=== PATIENT | female | born 1955 ===

== ENCOUNTER 2024-09-03 11:20 | Emergency (ER) | payer OTHER, SELFPAY ==
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
[2024-09-03 11:40] VITALS: BP 138/72; BP 145/82; PULSE 85; PULSE 90; RESP 20; TEMP 36.6; O2SAT 99; BMI 22.7
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
[2024-09-03] MEDS: Acetaminophen 1,000 MG/100 ML PIGGYBACK 400 MG IV (14:07)
[2024-09-03 14:09] LABS: MANUAL DIFF FLAG NO
[2024-09-03 14:14] LABS: Basophils Percent Auto 0.4 % (0-2); Eosinophils Percent Auto 0.9 % (0-4); Hematocrit 38.8 % (37.0-47.0); Imm Gran Abs Auto 0.01 X10*3/uL (0.00-0.03); Imm Gran Pct Auto 0.2 % (0.0-0.4); Lymphocytes Absolute Auto 1.3 X10*3/uL (1.2-4.9); Lymphocytes Percent Auto 27.6 % (20-40); Mean Corpuscular HGB Conc 33.5 g/dl (31.0-35.0); Mean Corpuscular Hemoglobin 30.1 pg (27.0-33.0); Mean Corpuscular Volume 89.8 fL (80.0-98.0); Mean Platelet Volume 11.1 fL (9.4-12.3); Monocytes Absolute Auto 0.4 X10*3/uL (0.1-1.2); Monocytes Percent Auto 7.5 % (2-11); Neutrophils Percent Auto 63.4 % (45-73); Platelet Count 204 X10*3/uL (160-400); Red Blood Count 4.32 X10*6/uL (4.20-5.50); Red Cell Distribution Width 13.7 % (11.0-16.0); White Blood Count 4.7 X10*3/uL (4.8-10.8)
[2024-09-03 14:28] LABS: Alanine Aminotransferase 75 U/L (0-31); Albumin Level 4.1 g/dL (3.5-5.0); Alkaline Phosphatase 130 U/L (39-117); Anion Gap 12 (12-20); Aspartate Amino Transferase 78 U/L (5-31); Bilirubin Direct 0.4 mg/dL (0.0-0.5); Bilirubin Total 1.1 mg/dL (0.0-1.0); Blood Urea Nitrogen 13 mg/dL (9-16); Calcium 9.4 mg/dL (8.4-10.2); Carbon Dioxide 29 mmol/L (22-29); Chloride 106 mmol/L (96-108); Creatinine Clr Calc Pharmacy 68.4; Estimated Glomerular Filt Rate > 60; Glucose Random 93 mg/dL (60-115); Potassium 4.2 mmol/L (3.3-5.1); Sodium 143 mmol/L (135-145); Total Protein 7.4 g/dL (6.5-8.0)
--- OUTSIDE RECORDS SUMMARY | 2024-09-03 14:28 | XMS_ITS | Encounter Summary ---
Author Organization [facility] Address [address] [place] [address] Care Team Providers Care System Trainer Name Role Phone Nate Maravilla MD Primary Care Provider Cipriano Kendrick MD Unavailable [phone] Jennifer Marcelino MD Primary Care Provider [phone] Yumiko Hemphill MD Unavailable [phone] Ami Fields MD Unavailable [phone] Chantell Greenwood TIMBER FRAMER HELPER Unavailable [phone] Jennifer Marcelino MD Unavailable [phone] Thomas Crews PA-C Unavailable [phone] Jennifer Marcelino MD Unavailable [phone] Encounter Details Date Type Department Care Team (Late st Contact Info) Description 05/28/2022 Lab Requisition [place] COVID-19 Testing Trailer [address] [place] [address] Severiano Hernadez MD [address] [place] [address] Encounter for laboratory testing for COVID-19 virus Social History Tobacco Use Types Packs/Day Years Used Date Smoking Tobacco: Never Smokeless Tobacco: Never Alcohol Use Standard Drinks/Week Comments No 0 (1 standard drink = 0.6 oz pur e alcohol) Comments Unknown Sex and Gender Information Value Date Recorded Sex Assigned at Female 03/15/2023 8:06 AM EST Legal Sex Female 11:37 AM EDT Gender Identity Female 03/15/2023 8:06 AM EST Sexual Orientation Choose not to disclose 2023 11:54 PM EDT COVID-19 Exposure Response Date Recorded In the last 10 days, have yo u been in contact with someone who was confirmed or suspected to have Coronavirus/COVID-19? Unable to assess 05/19/2022 9:44 AM EST documented as of this encounter Plan of Treatment Upcoming Encounters Date Type Department Care Team (Late st Contact Info) Description 10/04/2024 11:15 AM EDT Office Visit [facility] Department of Cardiology [address] [place] [phone] Ami Fields MD [address] [place] [address] 10/15/2024 9:45 AM EDT Office Visit [facility] [address] [phone] Jennifer Marcelino MD [address] [place] [address] 10/29/2024 3:00 PM EDT Office Visit [facility] [address] [place] [phone] Cipriano Kendrick MD [address] [place] [address] 12/26/2024 10:30 AM EDT Consult [facility] [place] [address] [place] [phone] Jennifer Marcelino MD [address] [place] [address], [place] [id number] Aida Casey MD [address] [place] [address] 04/08/2025 9:30 AM EST Office Visit [address] [place] [phone] Jennifer Marcelino MD [address] [place] [address], [place] [id number] documented as of this encounter Procedures Procedure Name Priority Date/Time Associated Diagnosis Comments ANTHONY COVID-19 (SARS-COV-2), JOYCELYN (IN-HOUSE) KIANNAAKER Routine 05/28/2022 8:58 AM EST Encounter for laboratory testing for COVID-19 virus [ICD-10-CM] documented in this encounter Results * Kiannaaker COVID-19 (SARS-CoV-2), JOYCELYN (In-House) (05/28/2022 8:58 AM EST) SARS CoV 2 Not Detected Not Detected 05/28/2022 10:14 AM EST [facility] Comment: Negative results do not preclude SARS-CoV-2 (COVID-19)infection and should not be used as the sole basis for treatment or other patient management decisions. The SARS-CoV-2 (Covid-19) Nucleic Acid Amplification Assay is limited to laboratories certified under the Clinical Laboratory Improvement Amendments of 1988 (CLIA), 42 U.S.C. 263a, to perform high complexity tests. Nucleic acid amplification tests include RT-PCR and TMA. This assay has not been FDA cleared or approved, however, this assay has been authorized by the Food and Drug Administration (FDA) under an Emergency Use Authorization (EUA). ??Validation was completed and performance characteristics established by [facility] as per the FDA and CLIA requirement for this EUA. The Aptima SARS-CoV-2 assay Letter of Authorization, along with the authorized Fact Sheet for Healthcare Providers, the authorized Fact Sheet for Patients, and authorized labeling are available on the FDA website: https://www.fda.gov/medical-devices/kmhjcxwpv-xmzxkqqzex-akoqlfm-devices/emergen -us q-ydebhttgqtutfm-imrxyal-devices. Performed at [facility], [place], [place] ??CT License [id number] ??CLIA [id number] Source Nasopharyngeal 05/28/2022 10:14 AM EST [facility] Microbiology Nasopharyngeal swab / Unknown 05/28/2022 8:58 AM EST 05/28/2022 8:58 AM EST us Severiano Hernadez MD MICROBIOLOGY - GENERAL ORDER YOKASTA Final Result Performing Organization Address City/State/[facility] Co de Phone Number [facility] [address] [place] [address] documented in this encounter Visit Diagnoses Diagnosis Encounter for laboratory testing for COVID-19 virus documented in this encounter Care Teams System Trainer Relationship Specialty Start Date End Date Nate Maravilla MD PCP - General Endocrinology 12/15/15 10/18/22 Jennifer Marcelino MD [address] [place] [address] PCP - General Internal Medicine 10/19/22 Jennifer Marcelino MD [address] [place] [address] PCP - MSSP Attributed 08/07/22 05/08/23 Thomas Crews PA-C [address] [place] [address] PCP - MSSP Attributed 05/09/23 02/06/24 Jennifer Marcelino MD [address] [place] [address] PCP - MSSP Attributed 02/07/24 Cipriano Kendrick MD [address] [facility] [address] [place] [address] Email Engineer Gastroenterology 03/18/21 Yumiko Hemphill MD [address] [place] [address] Obstetrics and Gynecology 10/19/22 Ami Fields MD [address] [facility] [address] [place] [address] Cardiovascular Disease 10/19/22 Chantell Greenwood, TIMBER FRAMER HELPER [address] [facility] [address] [place] [address] [employer] Controls Mechanic 11/17/22 documented as of this encounter
--- OUTSIDE RECORDS SUMMARY | 2024-09-03 14:28 | XMS_ITS | Clinical Summary ---
Author Organization [facility] Address [address] [place] [id number] Care Team Providers Care Core Filer Name Role Phone Cipriano Kendrick MD Unavailable [phone] Jennifer Marcelino MD Primary Care Provider Yumiko Hemphill MD Unavailable [phone] Ami Fields MD Unavailable [phone] Chantell Greenwood INSURANCE CLAIMS SUPERVISOR Unavailable [phone] Jennifer Marcelino MD Unavailable Allergies Active Allergy Reactions Criticality Noted Date Comments Chlorhexidine Swelling Medium 01/29/2021 Medications Coenzyme Q10 (CoQ-10) 100 MG Cap CoQ-10 Active cholecalciferol (CHOLECALCIFEROL) 1.25 MG (51346 UT) capsule Vitamin D3 Active Glucosamine-Chondro it-Vit C-Mn (GLUCOSAMINE 1500 COMPLEX PO) Take by mouth. Active multivitamin Tab tablet Take 1 tablet by mouth daily. Active atorvastatin (LIPITOR) 20 MG tabletIndications:C oronary arteriosclerosis TAKE 1 TABLET(20 MG) BY MOUTH 3 TIMES A WEEK 90 tablet 3 12/12/19 24 Active Synthroid 75 MCG tabletIndications:H ypothyroidism, unspecified type TAKE 1 TABLET(75 MCG) BY MOUTH DAILY ON AN EMPTY STOMACH 90 tablet 3 02/09/20 24 Active valACYclovir (VALTREX) 500 MG tablet Take 1 tablet (500 mg total) by mouth daily. Active ursodiol (ACTIGALL) 300 MG capsuleIndications: Primary biliary cholangitis (HCC) TAKE 2 CAPSULES BY MOUTH EVERY MORNING AND 1 CAPSULE EVERY EVENING 270 capsule 2 05/04/20 24 Active tiZANidine (ZANAFLEX) 2 MG tabletIndications:R otator cuff dysfunction, right Take 1 tablet (2 mg total) by mouth 3 (three) times a day as needed for muscle spasms. 30 tablet 1 06/07/19 25 2024 Discontinued meloxicam (MOBIC) 15 MG tabletIndications:R otator cuff dysfunction, right Take 1 tablet (15 mg total) by mouth daily as needed for moderate pain. 30 tablet 1 06/07/19 25 2024 Discontinued dexAMETHasone (DECADRON) 2 MG tabletIndications:R adiculopathy, cervical region TAKE 1 TAB TWICE DAILY FOR 5 DAYS THEN 1 TAB DAILY FOR 5 DAYS 15 tablet 07/18/19 25 2024 Discontinued azithromycin (ZITHROMAX) 250 MG tabletIndications:P ertussis exposure,Upper respiratory tract infection, unspecified type Take 2 tabs PO on day one and one tabs on days 2-5 #6 6 tablet 08/13/19 25 2024 Active Problems Problem Noted Date Diagnosed Date Coronary arteriosclerosis 11/04/2022 Chest pain 10/19/2022 10/19/2022 Dyspnea and respiratory abnormalities 10/19/2022 10/19/2022 Edema 10/19/2022 10/19/2022 Pure hypercholesterolemia 10/19/20222022 Left carotid bruit 10/19/2022 10/19/2022 Palpitations 10/19/2022 10/19/2022 GERD (gastroesophageal reflux disease) 0 Plantar wart 05/28/2016 Right foot pain 05/28/2016 Primary biliary cholangitis, stage 0 2016 biopsy 03/29/2016 Family history of breast cancer 03/18/2016 10/19/2022 Genital herpes simplex 03/18/2016 3 History of cervical dysplasia 03/18/2016 Age-related osteoporosis wit hout current pathological fracture 03/18/2016 10/19/2022 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 12/15/2015 Resolved Problems Problem Noted Date Diagnosed Date Resolved Date Purpura 10/27/2022 06/16/2023 Multinodular goiter 02/11/2021 10/20/19 23 Screening for colon cancer 09/27/2019 0 10/19/2022 Encounters Date Type Department Care Team Description 08/20/2024 8:00 AM EDT Treatment [facility] [address] [facility] [[email or web address] [address] [place] [address] Jhon Grace MD [place], [place], PT Radiculopathy, cervical region (Primary Dx); Cervicalgia; DDD (degenerative disc disease), cervical; Cervical radiculopathy 08/20/2024 Travel 08/17/2024 8:00 AM EDT Treatment [facility] [address] [facility] [[email or web address] [address] [place] [address] Jhon Grace MD [place], Kristin L, PT Radiculopathy, cervical region (Primary Dx); Cervicalgia 08/15/2024 8:00 AM EDT Treatment [facility] [address] [facility] [[email or web address] [address] [place] [address] Jhon Grace MD [place], [place], PT Radiculopathy, cervical region (Primary Dx); Cervicalgia 08/15/2024 Travel 08/12/2024 8:45 AM EDT Office Visit [facility] [address] [place] [address] Raz Rondon MD Nguyen, Nam V, PA Pertussis exposure (Primary Dx); Upper respiratory tract infection, unspecified type 08/12/2024 Travel 08/09/2024 8:30 AM EDT Treatment [facility] [address] [facility] [address] [place] [phone] Jhon Grace MD [place], Kristin L, PT Radiculopathy, cervical region (Primary Dx); Cervicalgia 08/09/2024 Travel 08/06/2024 9:30 AM EDT Treatment [facility] [address] [facility] [address] [place] [phone] Jhon Grace MD [place], [place], PT Radiculopathy, cervical region (Primary Dx); Cervicalgia; DDD (degenerative disc disease), cervical; Cervical radiculopathy 08/06/2024 Travel 07/31/2024 1:00 PM EDT Evaluation [facility] [address] [facility] [address] [place] [phone] Jhon Grace MD [place], [place], PT Radiculopathy, cervical region (Primary Dx); Cervicalgia 07/31/2024 Plan of Care Documentation [facility] [address] [facility] [address] [place] [phone] 07/31/2024 Travel 07/17/2024 9:30 AM EDT Consult [facility] [address] [phone] Rip Barrientos, [place] Radiculopathy, cervical region (Primary Dx) 07/02/2024 Orders Only [address] [place] [address] Jennifer Marcelino MD Rotator cuff dysfunction, right (Primary Dx) 07/02/[address] [place] [address] Jennifer Marcelino MD Results Request 06/27/2024 Orders Only [facility] [address] [place] [address] Jennifer Marcelino MD 06/08/2024 10:30 AM EST - 06/08/2024 11:00 AM EST Surgery [facility] [address] [place] [phone] Sadi Ly MD COLONOSCOPY 06/08/2024 10:30 AM EST Anesthesia Event [facility] [address] [place] [phone] Yara Morel MD 06/08/2024 9:26 AM EST - 06/08/2024 11:59 PM EST Hospital Encounter [facility] [address] [place] [phone] Sadi Ly MD Discharge Disposition: Home or Self Care 06/08/2024 Scanned Document [facility] [address] [place] [address] Sadi Ly MD 06/08/2024 Travel 06/07/2024 9:45 AM EST Office Visit [address] [phone] Jennifer Marcelino MD Pain of right hand (Primary Dx); Rotator cuff dysfunction, right 06/07/2024 Orders Only [facility] [address] [place] [address] Jennifer Marcelino MD 06/07/2024 Travel from Last 3 Months Immunizations Immunization Administration Dates Next Due Covid-19 MRNA Vaccine - Pfiz er 12+ (Purple Cap) 03/25/2021,07/27/2020,07/06/2020 Influenza High-Dose Quadriva lent,(FLUZONE HIGH-DOSE), Perservative Free IM 0.7 mL 65 years and older 02/08/2022 Influenza Inactivated/Split Preservative Free IM 02/12/2020 Influenza, Quadrivalent (FLU AD) Adjuvanted Preservative Free IM 65 years and older 01/25/2023 Influenza, Quadrivalent (FLU ARIX, AFLURIA, FLULAVAL, FLUZONE) Preservative Free IM 01/28/2021,02/12/2020 Influenza, Trivalent (FLUAD) Adjuvanted Preservative Free IM 65 years and older 03/14/2024 Influenza, Unspecified 02/08/2022,01/28/2021,10/2019 Pneumococcal Conjugate 13-Valent 01/28/2021 Pneumococcal Conjugate 20-Valent 06/30/2022 Family History Medical History Relation Name Comments Diabetes Brother d Thyroid cancer Mother Breast cancer Sister p Relation Name Status Comments Brother d Father Mother Alive Sister p Social History Tobacco Use Types Packs/Day Years Used Date Smoking Tobacco: Never Passive Smoke Exposure: Never Smokeless Tobacco: Never Tobacco Cessation:Counseling Given: Not Answered Alcohol Use Standard Drinks/Week Comments No 0 (1 standard drink = 0.6 oz pur e alcohol) [facility] Utilities Answer Date Recorded In the past 12 months has th e electric, gas, oil, or water company threatened to shut off services in your home? No 06/05/2024 Social Connection and Isolat ion Panel [NHANES] Answer Date Recorded In a typical week, how many times do you talk on the phone with family, friends, or neighbors? More than three times a week 06/05/2024 Frequency of Social Gatherin gs with Friends and Family Not on file 06/05/2024 Attends [employer] Services Not on file 06/05 Active Member of Clubs or Organizations Not on f ile 06/05/2024 Attends Club or Organization Meetings Not on kathie e 06/05/2024 Marital Status Not on file 06/05/2024 AUDIT-C Answer Date Recorded Q1: How often do you have a drink containing alcohol? Never 06/05/2024 Q2: How many drinks containi ng alcohol do you have on a typical day when you are drinking? Patient does not drink Q3: How often do you have si x or more drinks on one occasion? Never 06/05/2024 PHQ-2 Answer Date Recorded PHQ-2 Total Score 0 04/10/2024 Hunger Vital Sign Answer Date Recorded Within the past 12 months, y ou worried that your food would run out before you got the money to buy more. Never true 06/05/19 25 Within the past 12 months, t he food you bought just didn't last and you didn't have money to get more. Never true 06/05/2024 PRAPARE - Transportation Answer Date Re corded In the past 12 months, has l ack of transportation kept you from medical appointments or from getting medications? No 05/10 In the past 12 months, has l ack of transportation kept you from meetings, work, or from getting things needed for daily living? No 06/05/2024 Housing Stability Vital Sign Answer Dominic e Recorded In the last 12 months, was t here a time when you were not able to pay the mortgage or rent on time? No 06/05/2024 In the past 12 months, how m any times have you moved where you were living? 0 06/05/2024 At any time in the past 12 m [facility], were you homeless or living in a chcf (including now)? No 06/05/2024 Education Answer Date Recorded What is the highest level of school you have completed or the highest degree you have received? Bachelor's degree (e.g., BA, AB, BS) 06/05/2024 Comments No Sex and Gender Information Value Date Recorded Sex Assigned at Female 03/15/2023 8:06 AM EST Legal Sex Female 11:37 AM EDT Gender Identity Female 03/15/2023 8:06 AM EST Sexual Orientation Choose not to disclose 2023 11:54 PM EDT Last Filed Vital Signs Vital Sign Reading Time Taken Comments Blood Pressure 137/77 08/12/2024 8:11 AM EDT Pulse 100 08/12/2024 8:11 AM EDT Temperature 36.8 ??C (98.2 ??F) 08/12/2024 8:11 AM ED T Respiratory Rate 15 08/12/2024 8:11 AM EDT Oxygen Saturation 99% 08/12/2024 8:11 AM EDT Inhaled Oxygen Concentration - - Weight 58.5 kg (129 lb) 06/07/2024 9:42 AM EST Height 162.6 cm (5' 4 ) 04/11/2024 9:22 AM EST Body Mass Index 22.14 04/11/2024 9:22 AM EST Plan of Treatment Upcoming Encounters Date Type Department Care Team (Late st Contact Info) Description 10/04/2024 11:15 AM EDT Office Visit [facility] of [facility]iology [place] [id number] [place] [address] [address] [place] [phone] Ami Fields MD [address] [place] [address] 10/15/2024 9:45 AM EDT Office Visit [address] [phone] Jennifer Marcelino MD [address] [place] [address] 10/29/2024 3:00 PM EDT Office Visit [address] [phone] Cipriano Kendrick MD [address] [place] [address] 12/26/2024 10:30 AM EDT Consult [facility] [place] [address] [facility] [address] [place] [phone] Jennifer Marcelino MD [address] [place] [address] Aida Casey MD 100 [facility] [address] [place] [address] 04/08/2025 9:30 AM EST Office Visit [address] [phone] Jennifer Marcelino MD [address] [place] [address] Health Maintenance Due Date Last Done Comments DTaP/Tdap/Td Vaccines (1 - Tdap) 1973 Zoster (Shingles) Vaccine (1 of 2) 2004 COVID-19 Vaccine ( season) 2024 02/10/2024, 02/13/2023, 02/23/2022, Additional history exists DXA Bone Density (Females,Ages 65 and older) 11/03/2024 11/03/2022 Annual Wellness Visit 04/12/2025 04/11/2024, 024 Mammogram 02/20/2026 02/21/2024, 10/08, 10/15/2021, Additional history exists Colonoscopy 06/08/2029 06/08/2024 RSV Vaccine 60 years and older and Patients (1 - Risk 60-74 years 1-dose series) 04/06/2030 Postponed from 2014 (Not Indicated) Pneumococcal Vaccines 50+ Completed 06/30/2022, Influenza Vaccine Completed 03/14/2024, , 02/08/2022, Additional history exists Hepatitis C Virus Screening Completed 04/06/2024 Hepatitis B Vaccines Aged Out No long er eligible based on patient's age to complete this topic Physical Discontinued Procedures Procedure Name Priority Date/Time Associated Diagnosis Comments MR RT SHOULDER WITHOUT CONTRAST Routine 06/27/2024 7:41 AM EST COLONOSCOPY 06/08/2024 10:30 AM EST Screening for colon cancer Special Needs Jennifer Peck MD [facility] Shannan main, marin. PATHOLOGY REPORT 06/08/2024 12:0 0 AM EST XR RT HAND MIN 3 VIEWS Routine 06/07/2024 1:59 PM EST HEPATITIS C VIRUS (HCV) ANTIBODY Routine 04/06/2024 12:00 AM EST Need for hepatitis C screening test MM MAMMOGRAM DIAGNOSTIC-BILATER AL Routine 02/21/2024 Left-sided chest wall pain Breast cancer screening by mammogram Dense breast DEXA BONE DENSITY AXIAL SKELETON, 1 OR MORE SITES Routine 11/03/2022 3:03 PM EDT Osteopenia, unspecified location Postmenopausal from Last 3 Months or Most Recently Relevant to Health Maintenance Results * MR RT SHOULDER WITHOUT CONTRAST (06/27/2024 7:41 AM EST) Anatomical Region Laterality Modality Other 06/27/2024 7:00 AM EST 06/27/2024 7:00 AM EST Impressions 06/29/2024 10:15 AM EST Supraspinatus and infraspinatus tendinosis, without evidence of tear. Moderate AC joint osteoarthrosis. There is mild lateral downsloping of the acromion narrowing of the acromiohumeral distance possibly relating to symptoms of impingement. Recommend correlation with clinical exam. Electronically signed by: ??Alvino Carr MD ??06/29/2024 10:15 AM EST Thank you for referring your patient to us, Alvino Carr MD [phone] (Electronically Signed - 06/29/2024 10:15) Copy: PATIENT , ?? Narrative 06/29/2024 10:15 AM EST EXAMINATION: MR SHOULDER WITHOUT CONTRAST RIGHT CLINICAL INFORMATION: Right shoulder pain and numbness. History of fall 201128/05/2023 COMPARISON: None available TECHNIQUE: Multiplanar MR images of the right shoulder were obtained on a high-field scanner without intravenous contrast. FINDINGS: ROTATOR CUFF: Mild supraspinatus and infraspinatus tendinosis. Subscapularis and teres minor tendons are intact. No muscle atrophy or fatty infiltration. BICEPS: Normal CORACOACROMIAL ARCH: Mild lateral downsloping of the acromion. Acromiohumeral distance is narrowed measuring 4 mm. Moderate AC joint osteoarthrosis. Coracoclavicular ligamentous complex is intact. . LABRUM/CAPSULE: Intact GLENOHUMERAL JOINT/MARROW: Glenohumeral joint is congruent. No high-grade cartilage loss of the glenohumeral joint. No joint effusion. Procedure Note Alvino Carr MD - 06/29/2024 EXAMINATION: MR SHOULDER WITHOUT CONTRAST RIGHT CLINICAL INFORMATION: Right shoulder pain and numbness. History of fall 201128/05/2023 COMPARISON: None available TECHNIQUE: Multiplanar MR images of the right shoulder were obtained on a high-fieldscanner without intravenous contrast. FINDINGS: ROTATOR CUFF: Mild supraspinatus and infraspinatus tendinosis.Subscapularis and teres minor tendons are intact. No muscle atrophy orfatty infiltration. BICEPS: Normal CORACOACROMIAL ARCH: Mild lateral downsloping of the acromion.Acromiohumeral distance is narrowed measuring 4 mm. Moderate AC jointosteoarthrosis. Coracoclavicular ligamentous complex is intact. . LABRUM/CAPSULE: Intact GLENOHUMERAL JOINT/MARROW: Glenohumeral joint is congruent. No high- gradecartilage loss of the glenohumeral joint. No joint effusion. IMPRESSION: Supraspinatus and infraspinatus tendinosis, without evidence of tear. Moderate AC joint osteoarthrosis. There is mild lateral downsloping of theacromion narrowing of the acromiohumeral distance possibly relating tosymptoms of impingement. Recommend correlation with clinical exam. Electronically signed by: Alvino Carr MD 06/29/2024 10:15 AM EST RPWorkstation: [id number] Thank you for referring your patient to us, Alvino Carr MD [phone] (Electronically Signed - 06/29/2024 10:15) Copy: PATIENT , us Jennifer Marcelino MD IMG LEGACY PROCEDURES Final Result * Pathology (06/08/2024 12:00 AM EST) us Sadi Ly MD PATHOLOGY/CYTOLOGY ORDERABLES Final Result * XR RT HAND MIN 3 VIEWS (06/07/2024 1:59 PM EST) Anatomical Region Laterality Modality Other 06/07/2024 12:1 5 PM EST 06/07/2024 12:15 PM EST Impressions 06/09/2024 12:40 PM EST Normal right hand. Electronically signed by: ??Kimo Salinas MD ??06/09/2024 12:40 PM EST RP Thank you for referring your patient to us, Kimo Salinas MD [phone] (Electronically Signed - 06/09/2024 12:40) Narrative 06/09/2024 12:40 PM EST EXAMINATION: XR HAND RIGHT CLINICAL INFORMATION: Injury to right hand. Pain in right hand M79.641. COMPARISON: None ?? TECHNIQUE: AP, lateral, and oblique views of the right hand. FINDINGS: The bones and soft tissues are normal. No fracture. Alignment is anatomic. Joint spaces are maintained. No erosions or soft tissue calcifications. ?? Procedure Note Kimo Salinas MD - 06/09/2024 EXAMINATION: XR HAND RIGHT CLINICAL INFORMATION: Injury to right hand. Pain in right hand M79.641. COMPARISON: None TECHNIQUE: AP, lateral, and oblique views of the right hand. FINDINGS: The bones and soft tissues are normal. No fracture. Alignment is anatomic.Joint spaces are maintained. No erosions or soft tissue calcifications. IMPRESSION: Normal right hand. Electronically signed by: Kimo Salinas MD 06/09/2024 12:40 PM EST RPWorkstation: [id number] Thank you for referring your patient to us, Kimo Salinas MD [phone] (Electronically Signed - 06/09/2024 12:40) Jennifer Marcelino MD IMG LEGACY PROCEDURES Final Result * Hepatitis C Antibody (04/06/2024 12:00 AM EST) Hepatitis C Antibody NON-REACT KULDEEP NON-REACT KULDEEP [facility] Comment: HCV antibody was non-reactive. There is no laboratory evidence of HCV infection. In most cases, no further action is required. However, if recent HCV exposure is suspected, a test for HCV RNA (test code 66124) is suggested. For additional information please refer to http://education.[employer]/faq/YJJ58i8 (This link is being provided for informational/ educational purposes only.) Blood Blood specimen / Unknown 04/06/2024 04/06/2024 11:28 AM EST Narrative [facility] - 04/06/2024 9:58 PM EST FASTING:NO FASTING: NO Jennifer Marcelino MD LAB BLOOD ORDERABLES Final Result [facility] [address] [place] [phone] * MM Mammogram diagnostic-Bilateral (02/21/2024) Anatomical Region Laterality Modality Breast Bilateral Mammography Jennifer Marcelino MD IM MAMMOGRAPHY ORDERABLES Final Result * DEXA Bone Density axial skeleton, 1 or more sites (11/03/2022 3:03 PM EDT) Anatomical Region Laterality Modality Digital Radiogra phy 11/03/2022 10:0 0 AM EDT 11/03/2022 10:00 AM EDT Impressions 11/04/2022 9:09 AM EDT 1. DIAGNOSIS: Osteoporosis based on the lowest T-score value of -2.8 in the lumbar spine applying World Health Organization criteria. ?? 2. 10-YEAR FRACTURE RISK PREDICTION, FRAX: According to the guidelines, FRAX calculation should only be performed on patients in the osteopenia bone density category. Therefore, FRAX was not performed on this patient. 3. Treatment Recommendations: NOF guidelines recommend consideration for treatment in postmenopausal women and men age 50 and older presenting with the following: -A hip or vertebral (clinical or morphometric) fracture. -T-score less than or equal to -2.5 at the femoral neck or spine after appropriate evaluation to exclude secondary causes. -Low bone mass at the hip or spine and a 10-year fracture probability by FRAX of greater than or equal to 3% for hip fracture or greater than or equal to 20% for major osteoporotic fracture based on the [place] adapted WHO algorithm. 4. Other Recommendations: All treatment decisions require clinical judgment and consideration of individual patient factors, including patient preferences, comorbidities, previous drug use, risk factors not captured in the FRAX model (e.g. frailty, falls, vitamin D deficiency, increased bone turnover, interval significant decline in bone density) and possible under or overestimation of fracture risk by FRAX. Additional medical evaluation for secondary cause of low bone mineral density may be appropriate. FUTURE SCAN RECOMMENDATION: People with diagnosed cases of osteoporosis or at high risk for fracture should have regular bone mineral density tests. For patients eligible for Medicare, routine testing is allowed once every 2 years. The testing frequency can be increased to one year for patients who have rapidly progressing disease, those who are receiving or discontinuing medical therapy to restore bone mass, or have additional risk factors. Thank you for referring your patient to us, Akil Hui MD [phone] (Electronically Signed - 11/04/2022 09:09) Copy: PATIENT , ?? JENNIFER Mcarthur PEPE BISHOP ON LICENSE OF [facility]- [address] [address] Narrative 11/04/2022 9:09 AM EDT EXAMINATION: BONE DENSITOMETRY CLINICAL INDICATION: Other disorder of bone density and structure, unspecified site. COMPARISON: Previous BD dated 04/25/2014 and baseline BD dated 01/30/2007. TECHNIQUE: Using a WUT DXA system (software version: 14.10) manufactured by [employer], dual-energy x-ray absorptiometry was performed of the lumbar spine and left hip. The images are of good technical quality. Summary results are attached. FINDINGS: AP SPINE L1-L4: Current: BMD 0.849 g/cm2, Z-score -1.2, T-score -2.8, osteoporosis, 5.4% decrease from previous, 13.1% decrease from baseline (<5% change is not significant). Prior: BMD 0.897 g/cm2. Baseline: BMD 0.977 g/cm2. LEFT FEMUR, NECK: Current: BMD 0.843 g/cm2, Z-score 0.2, T-score -1.4, osteopenia. Prior: BMD 0.896 g/cm2. Baseline: BMD 0.910 g/cm2. LEFT FEMUR, TOTAL: Current: BMD 0.913 g/cm2, Z-score 0.6, T-score -0.8, normal, 3.9% decrease from previous, 6.0% decrease from baseline (<5% change is not significant). Prior: BMD 0.950 g/cm2. Baseline: BMD 0.971 g/cm2. IDENTIFIED RISK FACTORS: Menopause, secondary osteoporosis. HISTORY OF FRACTURE: None listed. MEDICATIONS: None listed. Procedure Note Akil Hui MD - 11/04/2022 EXAMINATION: BONE DENSITOMETRY CLINICAL INDICATION: Other disorder of bone density and structure, unspecified site. COMPARISON: Previous BD dated 04/25/2014 and baseline BD dated 01/30/2007. TECHNIQUE: Using a WUT DXA system (software version:14.10) manufactured by [employer], dual-energy x-ray absorptiometrywas performed of the lumbar spine and left hip. The images are of goodtechnical quality. Summary results are attached. FINDINGS: AP SPINE L1-L4: Current: BMD 0.849 g/cm2, Z-score -1.2, T-score -2.8, osteoporosis, 5.4% decrease from previous, 13.1% decrease from baseline (<5% change is not significant). Prior: BMD 0.897 g/cm2. Baseline: BMD 0.977 g/cm2. LEFT FEMUR, NECK: Current: BMD 0.843 g/cm2, Z-score 0.2, T-score -1.4, osteopenia. Prior: BMD 0.896 g/cm2. Baseline: BMD 0.910 g/cm2. LEFT FEMUR, TOTAL: Current: BMD 0.913 g/cm2, Z-score 0.6, T-score -0.8, normal, 3.9%decrease from previous, 6.0% decrease from baseline (<5% change is notsignificant). Prior: BMD 0.950 g/cm2. Baseline: BMD 0.971 g/cm2. IDENTIFIED RISK FACTORS: Menopause, secondary osteoporosis. HISTORY OF FRACTURE: None listed. MEDICATIONS: None listed. IMPRESSION: 1. DIAGNOSIS: Osteoporosis based on the lowest T-score value of -2.8 inthe lumbar spine applying World Health Organization criteria. 2. 10-YEAR FRACTURE RISK PREDICTION, FRAX: According to the guidelines,FRAX calculation should only be performed on patients in the osteopenia bone density category. Therefore, FRAX was not performed on this patient. 3. Treatment Recommendations: NOF guidelines recommend consideration for treatment in postmenopausal women and men age 50 and older presenting withthe following: -A hip or vertebral (clinical or morphometric) fracture. -T-score less than or equal to -2.5 at the femoral neck or spine after appropriate evaluation to exclude secondary causes. -Low bone mass at the hip or spine and a 10-year fracture probability byFRAX of greater than or equal to 3% for hip fracture or greater than or equalto 20% for major osteoporotic fracture based on the [place] adapted WHOalgorithm. 4. Other Recommendations: All treatment decisions require clinicaljudgment and consideration of individual patient factors, including patient preferences, comorbidities, previous drug use, risk factors not capturedin the FRAX model (e.g. frailty, falls, vitamin D deficiency, increasedbone turnover, interval significant decline in bone density) and possible underor overestimation of fracture risk by FRAX. Additional medical evaluationfor secondary cause of low bone mineral density may be appropriate. FUTURE SCAN RECOMMENDATION: People with diagnosed cases of osteoporosis or at high risk for fracture should have regular bone mineral density tests. For patients eligiblefor Medicare, routine testing is allowed once every 2 years. The testingfrequency can be increased to one year for patients who have rapidly progressing disease, those who are receiving or discontinuing medical therapy torestore bone mass, or have additional risk factors. Thank you for referring your patient to us, Akil Hui MD [phone] (Electronically Signed - 11/04/2022 09:09) Copy: PATIENT , JENNIFER MARCELINO MD ON LICENSE OF [facility] [address] [address] Jennifer Marcelino MD [facility] DXA ORDERABLES Final Re sult from Last 3 Months or Most Recently Relevant to Health Maintenance Insurance MEDICARE PART A & B [facility] Member Subscriber Plan / Payer (Ef fective 2020-) Name:Rakan Barragan Relation to Subscriber:Self Name:Rakan Barragan Payer ID:Not on file Group ID:Not on file Type:Not on file Address: [address] MEDICARE PART A & B [facility] MEDICARE PART A & B [facility] MEDICARE PART A & B Member Subscriber Plan / Payer ( fective 2019-) Name:Rakan Barragan Member ID:[id number] Relation to Subscriber:Self Name:Rakan Barragan Subscriber ID:[id number] Payer ID:[id number] Group ID:Not on file Type:Not on file Address: [place] [address] [place] [address] MEDICARE PART A & B [facility] MEDICARE PART A & B [facility] EMPLOYEE WORKER'S COMP TRAVELERS TRAVELERS TRAVELERS TRAVELERS Advance Directives Documents on File Type Date Recorded Patient Financial Intern Expl anation Advance Directive-Scan 09/14/2019 10:25 AM * Full Code (Latest Code Status on File) Date Activated Date Inactivated Comments 02/11/2021 3:51 PM * Full Code Date Activated Date Inactivated Comments 02/11/2021 6:58 AM 02/11/2021 3:51 PM Care Teams Core Filer Relationship Specialty Start Date End Date Jennifer Marcelino MD [address] [place] [address] PCP - General Internal Medicine 10/19/22 Jennifer Marcelino MD [address] [place] [address] PCP - MSSP Attributed 02/07/24 Cipriano Kendrick MD 85 [facility] [address] [place] [phone] Percussion Teacher Gastroenterology 03/18/21 Yumiko Hemphill MD [address] [place] [phone] Obstetrics and Gynecology 10/19/22 Ami Fields MD 1260 [facility] [address] [place] [address] Cardiovascular Disease 10/19/22 Chantell Greenwood, INSURANCE CLAIMS SUPERVISOR [address] [facility] 4 [place] [address] [facility] Community Clinical Research Nurse 11/17/22
--- OUTSIDE RECORDS SUMMARY | 2024-09-03 14:28 | XMS_ITS | Encounter Summary ---
Author Organization [facility] Address [address] [place] [address] Care Team Providers Care Infection Prevention Practitioner Name Role Phone Nate Maravilla MD Primary Care Provider Cipriano Kendrick MD Unavailable [phone] Jennifer Marcelino MD Primary Care Provider [phone] Yumiko Hemphill MD Unavailable [phone] Ami Fields MD Unavailable [phone] Chantell Greenwood MACHINE STONE POLISHER Unavailable [phone] Jennifer Marcelino MD Unavailable [phone] Thomas Crews PA-C Unavailable [phone] Jennifer Marcelino MD Unavailable [phone] Encounter Details Date Type Department Care Team (Late st Contact Info) Description 12/14/2021 Lab Requisition [place] COVID-19 Testing Trailer [address] [place] [address] Severiano Hernadez MD 80 [place] [address] Encounter for laboratory testing for COVID-19 virus [...] not to disclose 2023 11:54 PM EDT documented as of this encounter Plan of Treatment Upcoming Encounters Date Type Department Care Team (Late st Contact Info) Description 10/04/2024 11:15 AM EDT Office Visit [facility] Physicians Department of Cardiology [address] [place] [address] Ami Fields MD [address] [place] [address] 10/15/2024 9:45 AM EDT Office Visit [address] [phone] Jennifer Marcelino MD [address] [place] [address] 10/29/2024 3:00 PM EDT Office Visit [facility] [address] [place] [address] Cipriano Kendrick MD [address] [place] [address] 12/26/2024 10:30 AM EDT Consult [facility] Endocrinology [address] [place] [address] Jennifer Marcelino MD 445 [place] [address] Aida Casey MD [address] [place] [address] 04/08/2025 9:30 AM EST Office Visit [facility] Medical [address] [place] [address] Jennifer Marcelino MD [address] [place] [address] documented as of this encounter Procedures Procedure Name Priority Date/Time Associated Diagnosis Comments BEAKER COVID-19 (SARS-COV-2), JOYCELYN (IN-HOUSE) BEAKER Routine 12/14/2021 8:56 AM EDT Encounter for laboratory testing for COVID-19 virus [ICD-10-CM] documented in this encounter Results * Beaker COVID-19 (SARS-CoV-2), JOYCELYN (In-House) (12/14/2021 8:56 AM EDT) SARS CoV 2 Not Detected Not Detected 12/14/2021 12:18 PM EDT [facility] Comment: Negative results do not [...] was completed and performance characteristics established by [facility] as per the FDA and CLIA requirement for this EUA. The Aptima SARS-CoV-2 assay Letter of Authorization, along with the authorized Fact Sheet for Healthcare Providers, the authorized Fact Sheet for Patients, and authorized labeling are available on the FDA website: https://www.fda.gov/medical-devices/smfjnkbuz-jtrofatvvs-vgrviod-devices/emergen - s-fjunrccdjbgemm-uzhliqt-devices. Performed at [facility], [place], [place] ??[place] License 0385 ??CLIA [id number] Source Nasopharyngeal 12/14/2021 12:18 PM EDT [facility] Microbiology Nasopharyngeal swab / Unknown 12/14/2021 8:56 AM EDT 12/14/2021 8:56 AM EDT us Severiano Hernadez MD MICROBIOLOGY - GENERAL ORDER YOKASTA Final Result [facility] [address] [place] [address] documented in this encounter Visit Diagnoses Diagnosis Encounter for laboratory testing for COVID-19 virus documented in this encounter Care Teams Infection Prevention Practitioner Relationship Specialty Start Date End Date Nate Maravilla MD PCP - General Endocrinology 12/15/15 10/18/22 Jennifer Marcelino MD [address] [place] [address] PCP - General Internal Medicine 10/19/22 Jennifer Marcelino MD [address] [place] [address] PCP - MSSP Attributed 08/07/22 05/08/23 Thomas Crews PA-C [address] [place] [address] PCP - MSSP Attributed 05/09/23 02/06/24 Jennifer Marcelino MD [address] [place] [address] PCP - MSSP Attributed 02/07/24 Cipriano Kendrick MD 85 [facility] 1000 [place] [address] Telephonic Nurse Gastroenterology 03/18/21 Yumiko Hemphill MD [address] [place] [address] Obstetrics and Gynecology 10/19/22 Ami Fields MD [address] [place] [address] Cardiovascular Disease 10/19/22 Chantell Greenwood, MACHINE STONE POLISHER [address] [place] [address] [facility] Community Cardiology Physician 11/17/22 documented as of this encounter
--- OUTSIDE RECORDS SUMMARY | 2024-09-03 14:28 | XMS_ITS | Encounter Summary ---
Author Organization [facility] Address [address] [place] [address] Care Team Providers Care Regional Program Manager Name Role Phone Nate Maravilla MD Primary Care Provider Cipriano Kendrick MD Unavailable [phone] Jenniefr Marcelino MD Primary Care Provider [phone] Yumiko Hemphill MD Unavailable [phone] Ami Fields MD Unavailable [phone] Chantell Greenwood DIRECTOR OF MARKETING GOOGLE PERFORMANCE ADS Unavailable [phone] Jennifer Marcelino MD Unavailable [phone] Thomas Crews PA-C Unavailable [phone] Jennifer Marcelino MD Unavailable [phone] Encounter Details Date Type Department Care Team (Late st Contact Info) Description 05/19/2022 Lab Requisition [place] COVID-19 Testing Trailer [address] [place] [address] Severiano Hernadez MD 80 [place] [address] Encounter for laboratory testing for COVID-19 virus [...] Description 10/04/2024 11:15 AM EDT Office Visit [facility] Physicians Department of Cardiology [address] [place] [phone] Ami Fields MD [address] [place] [address] 10/15/2024 9:45 AM EDT Office Visit [facility] Medical [address] [phone] Jennifer Marcelino MD [address] [place] [address] 10/29/2024 3:00 PM EDT Office Visit [facility] [address] [place] [address] Cipriano Kendrick MD [address] [place] [address] 12/26/2024 10:30 AM EDT Consult [facility] Endocrinology [place] [address] [place] [address] Jennifer Marcelino MD [address] [place] [id number] Aida Casey MD [address] [place] [address] 04/08/2025 9:30 AM EST Office Visit [address] [place] [phone] Jennifer Marcelino MD [address] [place] [address], [place] [phone] documented as of this encounter Procedures Procedure Name Priority Date/Time Associated Diagnosis Comments ANTHONY COVID-19 (SARS-COV-2), JOYCELYN (IN-HOUSE) KIANNAAKER Routine 05/19/2022 9:45 AM EST Encounter for laboratory testing for COVID-19 virus [ICD-10-CM] documented in this encounter Results * Kiannaaker COVID-19 (SARS-CoV-2), JOYCELYN (In-House) (05/19/2022 9:45 AM EST) SARS CoV 2 Not Detected Not Detected 05/19/2022 10:46 AM EST [facility] Comment: Negative results do not [...] labeling are available on the FDA website: https://www.fda.gov/medical-devices/svlarmdjg-lvkfknvapm-bcnxacf-devices/emergen -us z-dnnjnlwlxqvfaz-wgaejvt-devices. Performed at [facility], [place], [place] ??[place] License 0385 ??CLIA [id number] Source Nasopharyngeal 05/19/2022 10:46 AM EST [facility] Microbiology Nasopharyngeal swab / Unknown 05/19/2022 9:45 AM EST 05/19/2022 9:45 AM EST us Severiano Hernadez MD MICROBIOLOGY - GENERAL ORDER YOKASTA Final Result Performing Organization Address City/State/[facility] Co de Phone Number [facility] [address] [place] [address] documented in this encounter Visit Diagnoses Diagnosis Encounter for laboratory testing for COVID-19 virus documented in this encounter Care Teams Regional Program Manager Relationship Specialty Start Date End Date Nate Maravilla MD PCP - General Endocrinology 12/15/15 10/18/22 Jennifer Marcelino MD [address] [place] [address] PCP - General Internal Medicine 10/19/22 Jennifer Marcelino MD [address] [place] [address] PCP - MSSP Attributed 08/07/22 05/08/23 Thomas Crews PA-C [address] [place] [address] PCP - MSSP Attributed 05/09/23 02/06/24 Jennifer Marcelino MD [address] [place] [address] PCP - MSSP Attributed 02/07/24 Cipriano Kendrick MD 85 [facility] 1000 [place] [address] Supervisor Telephone Answering Service Gastroenterology 03/18/21 Yumiko Hemphill MD [address] [place] [address] Obstetrics and Gynecology 10/19/22 Ami Fields MD [address] [facility] [address] [place] [address] Cardiovascular Disease 10/19/22 Chantell Greenwood, DIRECTOR OF MARKETING [employer] PERFORMANCE ADS [address] [facility] 4 [place] [address] [facility] Community Account Consultant 11/17/22 documented as of this encounter
--- OUTSIDE RECORDS SUMMARY | 2024-09-03 14:28 | XMS_ITS | Encounter Summary ---
Author Organization [facility] Address [address] [place] [address] Care Team Providers Care Biology Laboratory Assistant Name Role Phone Nate Maravilla MD Primary Care Provider Cipriano Kendrick MD Unavailable [phone] Jennifer Marcelino MD Primary Care Provider [phone] Yumiko Hemphill MD Unavailable [phone] Ami Fields MD Unavailable [phone] Chantell Greenwood STORE STANDARDS ASSOCIATE Unavailable [phone] Jennifer Marcelino MD Unavailable [phone] Thomas Crwes PA-C Unavailable [phone] Jennifer Marcelino MD Unavailable [phone] Encounter Details Date Type Department Care Team (Late st Contact Info) Description 07/20/2021 Lab Requisition [place] COVID-19 Testing Trailer [address] [place] [address] Severiano Hernadez MD 80 [place] [address] Encounter for laboratory testing for COVID-19 virus [...] Description 10/04/2024 11:15 AM EDT Office Visit [facility] Physicians Department of Cardiology [address] [place] [address] Ami Fields MD [address] [place] [address] 10/15/2024 9:45 AM EDT Office Visit [address] [phone] Jennifer Marcelino MD [address] [place] [address] 10/29/2024 3:00 PM EDT Office Visit [facility] [address] [place] [address] Cipriano Kendrick MD [address] [place] [address] 12/26/2024 10:30 AM EDT Consult [facility] Endocrinology [address] [place] [address] Jennifer Marcelino MD 445 [place] [address] Aida Casey MD [address] [place] [address] 04/08/2025 9:30 AM EST Office Visit [facility] [address] [place] [address] Jennifer Marcelino MD [address] [place] [address] documented as of this encounter Procedures Procedure Name Priority Date/Time Associated Diagnosis Comments BEAKER COVID-19 (SARS-COV-2), JOYCELYN (IN-HOUSE) BEAKER Routine 07/20/2021 11:32 AM EDT Encounter for laboratory testing for COVID-19 virus [ICD-10-CM] documented in this encounter Results * Beaker COVID-19 (SARS-CoV-2), JOYCELYN (In-House) (07/20/2021 11:32 AM EDT) SARS CoV 2 Not Detected Not Detected 07/20/2021 12:38 PM EDT [facility] Comment: Negative results do not preclude SARS-CoV-2 (COVID-19)infection and should not be used as the sole basis for treatment or other patient management decisions. The SARS-CoV-2 (Covid-19) Nucleic Acid Amplification Assay is limited to laboratories certified under the Clinical Laboratory Improvement Amendments of 1988 (CLIA), 42 U.S.C. 263a, to perform high complexity tests. Nucleic acid amplication tests include RT-PCR and TMA. This assay has not been FDA cleared or approved, however, this assay has been authorized by the Food and Drug Administration (FDA) under an Emergency Use Authorization (EUA). ??Validation was completed and performance characteristics established by [facility] as per the FDA and CLIA requirement for this EUA. The Aptima SARS-CoV-2 assay Letter of Authorization, along with the authorized Fact Sheet for Healthcare Providers, the authorized Fact Sheet for Patients, and authorized labeling are available on the FDA website: https://www.fda.gov/medical-devices/qsapccpfw-jpcxdxjbij-jensyty-devices/emergen - v-oldkmhhaimacaw-oyfqyzg-devices. Performed at [facility], [place], [place] ??[place] License 0385 ??CLIA [id number] Source Anterior Nares 07/20/2021 12:38 PM EDT [facility] Comment:Performed at [facility], [place], [place] license No. [id number] CLIA No. [id number] Microbiology Nasopharyngeal swab / Unknown 07/20/2021 11:32 AM EDT 07/20/2021 11:32 AM EDT us Severiano Hernadez MD MICROBIOLOGY - GENERAL ORDER YOKASTA Final Result Performing Organization Address City/State/[facility] Co de Phone Number [facility] [address] [place] [phone] documented in this encounter Visit Diagnoses Diagnosis Encounter for laboratory testing for COVID-19 virus documented in this encounter Care Teams Biology Laboratory Assistant Relationship Specialty Start Date End Date Nate Maravilla MD PCP - General Endocrinology 12/15/15 10/18/22 Jennifer Marcelino MD [address] [place] [address] PCP - General Internal Medicine 10/19/22 Jennifer Marcelino MD [address] [place] [address] PCP - MSSP Attributed 08/07/22 05/08/23 Thomas Crews PA-C [address] [place] [address] PCP - MSSP Attributed 05/09/23 02/06/24 Jennifer Marcelino MD [address] [place] [address] PCP - MSSP Attributed 02/07/24 Cipriano Kendrick MD 85 [facility] 1000 [place] [address] Vehicle Calibration Engineer Gastroenterology 03/18/21 Yumiko Hemphill MD [address] [place] [address] Obstetrics and Gynecology 10/19/22 Ami Fields MD [address] [facility] [address] [place] [address] Cardiovascular Disease 10/19/22 Chantell Greenwood, STORE STANDARDS ASSOCIATE [address] [facility] [address] [place] [address] [facility] Community Training And Development Head 11/17/22 documented as of this encounter
--- OUTSIDE RECORDS SUMMARY | 2024-09-03 14:28 | XMS_ITS | Encounter Summary ---
Author Organization [facility] Address [address] [place] [address] Care Team Providers Care Construction Ironworker Helper Name Role Phone Nate Maravilla MD Primary Care Provider Cipriano Kendrick MD Unavailable [phone] Jennifer Marcelino MD Primary Care Provider [phone] Yumiko Hemphill MD Unavailable [phone] Ami Fields MD Unavailable [phone] Chantell Greenwood DIRECTOR HOME HEALTH Unavailable [phone] Jennifer Marcelino MD Unavailable [phone] Thomas Crews PA-C Unavailable [phone] Jennifer Marcelino MD Unavailable [phone] Encounter Details Date Type Department Care Team (Late st Contact Info) Description 07/15/2021 Lab Requisition [place] COVID-19 Testing Trailer [address] [place] [address] Severiano Hernadez MD 80 [place] [address] Encounter for laboratory testing for COVID-19 virus [...] Description 10/04/2024 11:15 AM EDT Office Visit [facility] Physicians Department of Cardiology [address] [place] [address] Ami Fields MD [address] [place] [address] 10/15/2024 9:45 AM EDT Office Visit [address] [phone] Jennifer Marcelino MD [address] [place] [address] 10/29/2024 3:00 PM EDT Office Visit [facility] [address] [place] [address] Cipriano Kendrick MD [address] [place] [address] 12/26/2024 10:30 AM EDT Consult [facility] Endocrinology [address] [place] [address] Jnenifer Marcelino MD 445 [place] [address] Aida Casey MD [address] [place] [address] 04/08/2025 9:30 AM EST Office Visit [facility] Medical [address] [place] [address] Jennifer Marcelino MD [address] [place] [address] documented as of this encounter Procedures Procedure Name Priority Date/Time Associated Diagnosis Comments BEAKER COVID-19 (SARS-COV-2), JOYCELYN (IN-HOUSE) BEAKER Routine 07/15/2021 8:55 AM EST Encounter for laboratory testing for COVID-19 virus [ICD-10-CM] documented in this encounter Results * Beaker COVID-19 (SARS-CoV-2), JOYCELYN (In-House) (07/15/2021 8:55 AM EST) SARS CoV 2 Not Detected Not Detected 07/15/2021 10:31 AM EST [facility] Comment: Negative results do [...] was completed and performance characteristics established by [facility] as per the FDA and CLIA requirement for this EUA. The Aptima SARS-CoV-2 assay Letter of Authorization, along with the authorized Fact Sheet for Healthcare Providers, the authorized Fact Sheet for Patients, and authorized labeling are available on the FDA website: https://www.fda.gov/medical-devices/zsfnfzsgs-jaikzuziyl-iuymflb-devices/emergen -us e-ffuaasirdrgvuz-wpqyvpw-devices. Performed at [facility], [place], [place] ??[place] License 0385 ??CLIA [id number] Source Anterior Nares 07/15/2021 10:31 AM EST [facility] Comment:Performed at [facility], [place], [place] license No. [id number] CLIA No. [id number] Microbiology Nasopharyngeal swab / Unknown 07/15/2021 8:55 AM EST 07/15/2021 8:55 AM EST us Severiano Hernadez MD MICROBIOLOGY - GENERAL ORDER YOKASTA Final Result Performing Organization Address City/State/[facility] de Phone Number [facility] [address] [place] [address] documented in this encounter Visit Diagnoses Diagnosis Encounter for laboratory testing for COVID-19 virus documented in this encounter Care Teams Construction Ironworker Helper Relationship Specialty Start Date End Date Nate Maravilla MD PCP - General Endocrinology 12/15/15 10/18/22 Jennifer Marcelino MD [address] [place] [address] PCP - General Internal Medicine 10/19/22 Jennifer Marcelino MD [address] [place] [address] PCP - MSSP Attributed 08/07/22 05/08/23 Thomas Crews PA-C [address] [place] [address] PCP - MSSP Attributed 05/09/23 02/06/24 Jennifer Marcelino MD [address] [place] [address] PCP - MSSP Attributed 02/07/24 Cipriano Kendrick MD 85 [facility] [address] [place] [address] Lay Out And Detail Drafter Gastroenterology 03/18/21 Yumiko Hemphill MD [address] [place] [phone] Obstetrics and Gynecology 10/19/22 Ami Fields MD [address] [facility] [address] [place] [address] Cardiovascular Disease 10/19/22 Chantell Greenwood, DIRECTOR HOME HEALTH [address] [place] [address] [facility] Community Fabrication And Assembly Supervisor 11/17/22 documented as of this encounter
--- OUTSIDE RECORDS SUMMARY | 2024-09-03 14:28 | XMS_ITS | Encounter Summary ---
Author Organization Formerly [facility] Address [address] [place] [address] Care Team Providers Care Agent Spa Desk Name Role Phone Nate Maravilla MD Primary Care Provider Cipriano Kendrick MD Unavailable [phone] Jennifer Marcelino MD Primary Care Provider [phone] Yumiko Hemphill MD Unavailable [phone] Ami Fields MD Unavailable [phone] Chantell Greenwood GLASS CUTTER HELPER Unavailable [phone] Jennifer Marcelino MD Unavailable [phone] Thomas Crews PA-C Unavailable [phone] Jennifer Marcelino MD Unavailable [phone] Encounter Details Date Type Department Care Team (Late st Contact Info) Description 12/21/2021 Lab Requisition [place] COVID-19 Testing Trailer [address] [place] [address] Severiano Hernadez MD [address] [place] [address] Encounter for laboratory testing for COVID-19 virus [...] Description 10/04/2024 11:15 AM EDT Office Visit [facility] Department of Cardiology [address] [place] [address] Ami Fields MD [address] [place] [address] 10/15/2024 9:45 AM EDT Office Visit [address] [phone] Jennifer Marcelino MD [address] [place] [address] 10/29/2024 3:00 PM EDT Office Visit [facility] [address] [place] [address] Cipriano Kendrick MD [address] [place] [address] 12/26/2024 10:30 AM EDT Consult [facility] Endocrinology [address] [place] [address] Jennifer Marcelino MD [address] [place] [address] Aida Casey MD [address] [place] [address] 04/08/2025 9:30 AM EST Office Visit [facility] [address] [place] [address] Jennifer Marcelino MD [address] [place] [address] documented as of this encounter Procedures Procedure Name Priority Date/Time Associated Diagnosis Comments BEAKER COVID-19 (SARS-COV-2), JOYCELYN (IN-HOUSE) BEAKER Routine 12/21/2021 10:27 AM EDT Encounter for laboratory testing for COVID-19 virus [ICD-10-CM] documented in this encounter Results * Beaker COVID-19 (SARS-CoV-2), JOYCELYN (In-House) (12/21/2021 10:27 AM EDT) SARS CoV 2 Not Detected Not Detected 12/21/2021 4:51 PM EDT [facility] Comment: Negative results do not [...] was completed and performance characteristics established by [facility] as per the FDA and CLIA requirement for this EUA. The Aptima SARS-CoV-2 assay Letter of Authorization, along with the authorized Fact Sheet for Healthcare Providers, the authorized Fact Sheet for Patients, and authorized labeling are available on the FDA website: https://www.fda.gov/medical-devices/xhvotnkps-qqsqejnqcv-lclrmpe-devices/emergen - s-nsgrqshvtryrlk-pqmyoab-devices. Performed at [facility], [place], [place] License 0385 ??CLIA [id number] Source Nasopharyngeal 12/21/2021 4:51 PM EDT [facility] Microbiology Nasopharyngeal swab / Unknown 12/21/2021 10:27 AM EDT 12/21/2021 10:27 AM EDT us Severiano Hernadez MD MICROBIOLOGY - GENERAL ORDER YOKASTA Final Result [facility] [address] [place] [address] documented in this encounter Visit Diagnoses Diagnosis Encounter for laboratory testing for COVID-19 virus documented in this encounter Care Teams Agent Spa Desk Relationship Specialty Start Date End Date Nate Maravlila MD PCP - General Endocrinology 12/15/15 10/18/22 Jennifer Marcelino MD [address] [place] [address] PCP - General Internal Medicine 10/19/22 Jennifer Marcelino MD [address] [place] [address] PCP - MSSP Attributed 08/07/22 05/08/23 Thomas Crews PA-C [address] [place] [address] PCP - MSSP Attributed 05/09/23 02/06/24 Jennifer Marcelino MD [address] [place] [address] PCP - MSSP Attributed 02/07/24 Cipriano Kendrick MD 85 [facility] [address] [place] [address] Assistant Professor Of English Gastroenterology 03/18/21 Yumiko Hemphill MD [address] [place] [address] Obstetrics and Gynecology 10/19/22 Ami Fields MD [address] [place] [address] Cardiovascular Disease 10/19/22 Chantell Greenwood, GLASS CUTTER HELPER [address] [place] [address] [facility] Community Land Department Head 11/17/22 documented as of this encounter
--- OUTSIDE RECORDS SUMMARY | 2024-09-03 14:28 | XMS_ITS | Encounter Summary ---
Author Organization Formerly [facility] Address [address] [place] [address] Care Team Providers Care High Speed Warper Tender Name Role Phone Nate Maravilla MD Primary Care Provider Cipriano Kendrick MD Unavailable [phone] Jennifer Marcelino MD Primary Care Provider [phone] Yumiko Hemphill MD Unavailable [phone] Ami Fields MD Unavailable [phone] Chantell Greenwood DECKHAND OYSTER DREDGE Unavailable [phone] Jennifer Marcelino MD Unavailable [phone] Thomas Crews PA-C Unavailable [phone] Jennifer Marcelino MD Unavailable [phone] Encounter Details Date Type Department Care Team (Late st Contact Info) Description 05/21/2021 Lab Requisition [place] COVID-19 Testing Trailer [address] [place] [address] Severiano Hernadez MD [address] [place] [address] Encounter for laboratory testing for COVID-19 virus [...] Exposure Response Date Recorded In the last month, have you been in contact with someone who was confirmed or suspected to have Coronavirus / COVID-19? No / Unsure 05/21/2021 9:38 AM EST documented as of this encounter Plan of Treatment Upcoming Encounters Date Type Department Care Team (Late st Contact Info) Description 10/04/2024 11:15 AM EDT Office Visit [facility] Department of Cardiology [place] [address] [place] [address] [address] [place] [phone] Ami Fields MD [address] [place] [address] 10/15/2024 9:45 AM EDT Office Visit [facility] [address] [phone] Jennifer Marcelino MD [address] [place] [address] 10/29/2024 3:00 PM EDT Office Visit [facility] [address] [place] [address] Cipriano Kendrick MD [address] [place] [address] 12/26/2024 10:30 AM EDT Consult [facility] Endocrinology [place] [address] [place] [address] Jennifer Marcelino MD [address] [place] [phone] Aida Casey MD [address] [place] [address] 04/08/2025 9:30 AM EST Office Visit [address] [place] [address] Jennifer Marcelino MD [address] [place] [address], [place] [phone] documented as of this encounter Procedures Procedure Name Priority Date/Time Associated Diagnosis Comments ANTHONY COVID-19 (SARS-COV-2), JOYCELYN (IN-HOUSE) KIANNAAKER Routine 05/21/2021 9:39 AM EST Encounter for laboratory testing for COVID-19 virus [ICD-10-CM] documented in this encounter Results * Kiannaaker COVID-19 (SARS-CoV-2), JOYCELYN (In-House) (05/21/2021 9:39 AM EST) SARS CoV 2 Not Detected Not Detected 05/21/2021 10:21 AM EST [facility] Comment: Negative results do [...] and performance characteristics established by [facility] as per the FDA and CLIA requirement for this EUA. The Aptima SARS-CoV-2 assay Letter of Authorization, along with the authorized Fact Sheet for Healthcare Providers, the authorized Fact Sheet for Patients, and authorized labeling are available on the FDA website: https://www.fda.gov/medical-devices/vbzexoybb-krwabuzgtd-zqrsdjp-devices/emergen -us i-ymmwjzhybthxpe-dueeotr-devices. Performed at [facility], [place], [place] ??[place] License 0385 ??CLIA [id number] Source Anterior Nares 05/21/2021 10:21 AM EST [facility] Comment:Performed at [facility], [facility], [place] license No. [id number] CLIA No. [id number] Microbiology Nasopharyngeal swab / Unknown 05/21/2021 9:39 AM EST 05/21/2021 9:39 AM EST us Severiano Hernadez MD MICROBIOLOGY - GENERAL ORDER YOKASTA Final Result [facility] [address] [place] [address] documented in this encounter Visit Diagnoses Diagnosis Encounter for laboratory testing for COVID-19 virus documented in this encounter Care Teams High Speed Warper Tender Relationship Specialty Start Date End Date Nate Maravilla MD PCP - General Endocrinology 12/15/15 10/18/22 Jennifer Marcelino MD [address] [place] [address] PCP - General Internal Medicine 10/19/22 Jennifer Marcelino MD [address] [place] [address] PCP - MSSP Attributed 08/07/22 05/08/23 Thomas Crews PA-C [address] [place] [address] PCP - MSSP Attributed 05/09/23 02/06/24 Jennifer Marcelino MD [address] [place] [address] PCP - MSSP Attributed 02/07/24 Cipriano Kendrick MD 85 [facility] [address] [place] [address] Extrusion Utility Worker Gastroenterology 03/18/21 Yumiko Hemphill MD [address] [place] [address] Obstetrics and Gynecology 10/19/22 Ami Fields MD [address] [place] [address] Cardiovascular Disease 10/19/22 Chantell Greenwood, DECKHAND OYSTER DREDGE [address] [place] [address] [facility] Community Dialysis Registered Nurse 11/17/22 documented as of this encounter
--- OUTSIDE RECORDS SUMMARY | 2024-09-03 14:28 | XMS_ITS | Encounter Summary ---
Author Organization [facility] Address [address] [place] [address] Care Team Providers Care Lion Trainer Name Role Phone Cipriano Kendrick MD Unavailable [phone] Jennifer Marcelino MD Primary Care Provider Yumiko Hemphill MD Unavailable Ami Fields MD Unavailable [phone] Chantell Greenwood WHITEWASHER Unavailable [phone] Jennifer Marcelino MD Unavailable Encounter Details Date Type Department Care Team (Late st Contact Info) Description 06/08/2024 Scanned Document [facility] [address] [facility] [place] [address] [address] Sadi yL MD [address] [place] [address] [place] [address] Social History Tobacco Use Types Packs/Day Years Used Date Smoking Tobacco: Never Passive Smoke Exposure: Never Smokeless Tobacco: Never Alcohol Use Standard Drinks/Week Comments No 0 (1 standard drink = 0.6 oz pur e alcohol) [facility] Utilities Answer Date Recorded In the past [...] and Family Not on file 06/05/2024 Attends [employer] Services Not on file 06/05 Active Member [...] any time in the past 12 [facility], were you homeless or living in a prison (including now)? No 06/05/2024 Education Answer Date [...] PM EDT documented as of this encounter Progress Notes * Sadi Ly MD - 06/08/2024 11:09 AM EST FYI The pathology from your recent colonoscopy revealed 2 adenomatous polyp(s). Adenomatous polyps are small growths that arise from the lining of the large intestines (colon). Although polyps may not pose an initial health risk, there is the potential for adenomatous polyps to become cancerous if not removed. There are several different types of polyps, some of which need closer monitoring than others. On your current specimen there was no evidence of malignancy (no cancer). The goal of treatment is to remove the adenomatous polyps, and thus prevent it from evolving into colon cancer. Repeat examinations are recommended to check if you have made any new pre-cancerous polyps that need removal. For this reason, we recommend a repeat colonoscopy in 5 years We hope that this information is helpful to you. Your health and the quality of care you receive are important to us. documented in this encounter Plan of Treatment Upcoming Encounters Date Type Department Care Team (Late st Contact Info) Description 10/04/2024 11:15 AM EDT Office Visit [facility] Department of Cardiology [address] [place] [address] Ami Fields MD [address] [place] [address] 10/15/2024 9:45 AM EDT Office Visit [address] [address] Jennifer Marcelino MD [address] [place] [phone] 10/29/2024 3:00 PM EDT Office Visit [facility] [address] [place] [phone] Cipriano Kendrick MD [address] [place] [phone] 12/26/2024 10:30 AM EDT Consult [facility] Endocrinology [place] 100 [facility] [address] [place] [address] Jennifer Marcelino MD [address] [place] [address] Aida Casey MD 100 [facility] [address] [place] [address] 04/08/2025 9:30 AM EST Office Visit [address] [address] Jennifer Marcelino MD [address] [place] [phone] documented as of this encounter Procedures Procedure Name Priority Date/Time Associated Diagnosis Comments PATHOLOGY REPORT 06/08/2024 12:0 0 AM EST documented in this encounter Results * Pathology (06/08/2024 12:00 AM EST) us Sadi Ly MD PATHOLOGY/CYTOLOGY ORDERABLES Final Result documented in this encounter Visit Diagnoses Not on filedocumented in this encounter Care Teams Lion Trainer Relationship Specialty Start Date End Date Jennifer Marcelino MD [address] [place] [address] PCP - General Internal Medicine 10/19/22 Jennifer Marcelino MD [address] [place] [address] PCP - MSSP Attributed 02/07/24 Cipriano Kendrick MD 85 [facility] [address] [place] [address] Band Saw Operator Cake Cutting Gastroenterology 03/18/21 Yumiko Hemphill MD [address] [place] [address] Obstetrics and Gynecology 10/19/22 Ami Fields MD [address] [facility] [address] [place] [address] Cardiovascular Disease 10/19/22 Chantell Greenwood, WHITEWASHER [address] [place] [address] [facility] Community Fern Gatherer 11/17/22 documented as of this encounter
--- OUTSIDE RECORDS SUMMARY | 2024-09-03 14:28 | XMS_ITS | Clinical Summary ---
Author Organization [facility] Address [address] [place] [address] Care Team Providers Care Cupola Operator Name Role Phone Jennifer Marcelino MD Primary Care Provider [phone] Allergies No known active allergies Medications Medication Sig Dispensed Refills Start Date End Date Status levothyroxine (SYNTHROID, LEVOXYL) tablet 75 mcg Take 75 mcg by mouth. 0 Active SYNTHROID 75 MCG tablet 0 05/25/2016 A ctive ursodiol (ACTIGALL) 300 MG capsule Take 600 mg by mouth. 0 Active ondansetron (ZOFRAN-ODT) 8 MG disintegrating tablet Take 1 tablet (8 mg total) by mouth every 8 (eight) hours as needed for nausea. 20 tablet 0 12/03/2020 Active cyclobenzaprine (FLEXERIL) 10 MG tablet Take 1 tablet (10 mg total) by mouth 3 (three) times a day as needed for muscle spasms for up to 12 doses. 12 tablet 0 12/03/2020 Active atorvastatin (LIPITOR) tablet 20 mg Take 1 tablet (20 mg total) by mouth daily. 0 Active doxycycline (VIBRAMYCIN) 100 MG capsule 0 03/14/2023 Active amoxicillin-clavulanate (AUGMENTIN) 875-125 MG per tablet Take 1 tablet by mouth 2 (two) times a day. 20 tablet 0 03/15/2023 Active Active Problems No known active problems Family History Medical History Relation Name Comments Breast cancer Sister Relation Name Status Comments Sister Social History Tobacco Use Types Packs/Day Years Used Date Smoking Tobacco: Never Assessed Sex and Gender Information Value Date Recorded Sex Assigned at Female 12/03/2020 9:35 AM EDT Gender Identity Not on file Sexual Orientation Not on file Job Start Date Occupation Industry Not on file Not on file Not on file Last Filed Vital Signs Vital Sign Reading Time Taken Comments Blood Pressure 117/81 03/15/2023 3:46 PM EST Pulse 101 03/15/2023 3:46 PM EST Temperature 36.6 ??C (97.8 ??F) 03/15/2023 3:46 PM ES T Respiratory Rate 16 03/15/2023 3:46 PM EST Oxygen Saturation 99% 03/15/2023 3:46 PM EST Inhaled Oxygen Concentration - - Weight 59 kg (130 lb) 03/15/2023 11:01 AM EST Height 162.6 cm (5' 4 ) 03/15/2023 11:01 AM EST Body Mass Index 22.31 03/15/2023 11:01 AM EST Plan of Treatment Health Maintenance Due Date Last Done Comments Hepatitis C Screening 1954 Depression Screening 1966 Preventative Health Evaluation 1972 DTap / Tdap / Td (1 - Tdap) 1973 Colon Cancer Screening (Colonoscopy) 08/23/1999 Shingrix-Zoster Vaccine (1 of 2) 2004 Fall Risk Assessment 08/23/2019 Osteoporosis Screening (DEXA Scan) 08/23/2019 COVID-19 Vaccine ( season) 2024 02/13/2023, 03/25/2021, 07/27/2020, Additional history exists Influenza Vaccine (#1) 2024 3, 02/08/2022, 01/28/2021, Additional history exists Breast Cancer Screening (Mammogram) 02/20/2026 02/21/2024 RSV Adult > 60+ Yrs or (1 - 1-dose 75+ series) 2029 Pneumococcal Vaccine Completed 06/30/2022, 01/29/20 21 Hepatitis B Vaccines Aged Out No long er eligible based on patient's age to complete this topic RSV Ped < 20 months Aged Out No longe r eligible based on patient's age to complete this topic Care Teams Cupola Operator Relationship Specialty Start Date End Date Jennifer Marcelino MD [address] [place] [address] PCP - General Internal Medicine 03/15/23
--- OUTSIDE RECORDS SUMMARY | 2024-09-03 14:28 | XMS_ITS | Encounter Summary ---
Author Organization [facility] Address [address] [place] [address] Care Team Providers Care Insole Tacker Name Role Phone Nate Maravilla MD Primary Care Provider [phone] Monika Cooper RN Unavailable [phone] Nate Maravilla MD Unavailable [phone] Cipriano Kendrick MD Unavailable [phone] Jennifer Marcelino MD Primary Care Provider [phone] Yumiko Hemphill MD Unavailable [phone] Ami Fields MD Unavailable [phone] Chantell Greenwood Unavailable [phone] Jennifer Marcelino MD Unavailable [phone] Thomas Crews PA-C Unavailable [phone] Jennifer Marcelino MD Unavailable [phone] Encounter Details Date Type Department Care Team (Latest Contact Info) Description 04/17/2020 Lab Requisition [facility] Hino[address] Through [address] [place] [address] Douglas Oliva PA-C [address] [place] [address] Encounter for laboratory testing for COVID-19 virus [...] or suspected to have Coronavirus / COVID-19? Unable to assess 04/17/2020 2:25 PM EST documented as of this encounter Plan of Treatment Upcoming Encounters Date Type Department Care Team (Late st Contact Info) Description 10/04/2024 11:15 AM EDT Office Visit [facility] Department of Cardiology [address] [place] [address] Ami Fields MD [address] [place] [address] 10/15/2024 9:45 AM EDT Office Visit [address] [phone] Jennifer Marcelino MD [address] [place] [address] 10/29/2024 3:00 PM EDT Office Visit [address] [phone] Cipriano Kendrick MD 85 [facility] [address] [place] [address] 12/26/2024 10:[address] [facility] Endocrinology [place] [address] [place] [address] Jennifer Marcelino MD [address] [place] [address] Aida Casey MD [address] [facility] 101 [place] [address] 04/08/2025 9:30 AM EST Office Visit [address] [place] [address] Jennifer Marcelino MD [address] [place] [address] documented as of this encounter Procedures Procedure Name Priority Date/Time Associated Diagnosis Comments COVID-19 (SARS-COV-2) - [facility] Routine 04/17/2020 1:48 PM EST Encounter for laboratory testing for COVID-19 virus [ICD-10-CM] documented in this encounter Results * COVID-19 (SARS-COV-2) ([facility]) (04/17/2020 1:48 PM EST) COVID-19 RT-PCR NOT-DETEC CASSIE Not-Detec cassie 04/19/2020 8:50 AM EST [facility] Comment:Interpretation: The viral RNA was not detected, making the COVID-19 diagnosis less likely. Clinical correlation is highly recommended.Final report signed by Isis Lindquist, Ph.D., Laboratory DirectorTests performed at [facility] [employer] Microbiology Nasopharyngeal swab / Unknown 04/17/2020 1:48 PM EST 04/17/2020 1:48 PM EST Narrative LENORE CRUZ - 04/19/2020 8:50 AM EST Performed by [facility] [address] [place] [address], CLIA# [id number] and [place] License# [id number] Douglas Oliva PA-C MICROBIOLOGY - GENERAL OR DERABLES Final Result LENORE CRUZ documented in this encounter Visit Diagnoses Diagnosis Encounter for laboratory testing for COVID-19 virus documented in this encounter Care Teams Insole Tacker Relationship Specialty Start Date End Date Nate Maravilla MD PCP - General Endocrinology 12/15/15 10/18/22 [place] [address] [place] [address] PCP - [employer] Medicare Attributed 10/08/19 05/08/20 Jennifer Marcelino MD [address] [place] [address] PCP - General Internal Medicine 10/19/22 Jennifer Marcelino MD [address] [place] [address] PCP - MSSP Attributed 08/07/22 05/08/23 Thomas Crews PA-C [address] [place] [address] PCP - MSSP Attributed 05/09/23 02/06/24 Jennifer Marcelino MD [address] [place] [address] PCP - MSSP Attributed 02/07/24 Monika Cooper, RN [address] [place] [address] ICP Community Emblem Drawer In 03/17/18 03/22/21 Cipriano Kendrick MD [facility] [address] [place] [address] Petroleum Engineer Gastroenterology 03/18/21 Yumiko Hemphill MD [address] [place] [address] Obstetrics and Gynecology 10/19/22 Ami Fields MD [address] [facility] [address] [place] [address] Cardiovascular Disease 10/19/22 Chantell Greenwood, PAVING CONTRACTOR [address] [place], [place] [phone] [facility] Community Emblem Drawer In 11/17/22 documented as of this encounter
--- OUTSIDE RECORDS SUMMARY | 2024-09-03 14:28 | XMS_ITS | Encounter Summary ---
Author Organization [facility] Address [address] [place] [address] Care Team Providers Care Salmon Troll Fisher Name Role Phone Nate Maravilla MD Primary Care Provider Cipriano Kendrick MD Unavailable [phone] Jennifer Marcelino MD Primary Care Provider [phone] Yumiko Hemphill MD Unavailable [phone] Ami Fields MD Unavailable [phone] Chantell Greenwood EXPELLER OPERATOR Unavailable [phone] Jennifer Marcelino MD Unavailable [phone] Thomas Crews PA-C Unavailable [phone] Jennifer Marcelino MD Unavailable [phone] Encounter Details Date Type Department Care Team (Late st Contact Info) Description 12/09/2021 Lab Requisition [place] COVID-19 Testing Trailer [address] [place] [address] Severiano Hernadez MD [address] [place] [address] Encounter for laboratory testing for COVID-19 virus [...] Description 10/04/2024 11:15 AM EDT Office Visit [facility] Physicians Department of Cardiology [address] [place] [address] Ami Fields MD [address] [place] [address] 10/15/2024 9:45 AM EDT Office Visit [address] [phone] Jennifer Marcelino MD [address] [place] [address] 10/29/2024 3:00 PM EDT Office Visit [facility] [address] [place] [address] Cipriano Kendrick MD [address] [place] [address] 12/26/2024 10:30 AM EDT Consult [facility] Endocrinology [address] [place] [address] Jennifer Marcelino MD 445 [place] [address] Aida Casey MD [address] [place] [address] 04/08/2025 9:30 AM EST Office Visit [facility] [address] [place] [address] Jennifer Marcelino MD [address] [place] [address] documented as of this encounter Procedures Procedure Name Priority Date/Time Associated Diagnosis Comments BEAKER COVID-19 (SARS-COV-2), JOYCELYN (IN-HOUSE) BEAKER Routine 12/09/2021 8:20 AM EDT Encounter for laboratory testing for COVID-19 virus [ICD-10-CM] documented in this encounter Results * Beaker COVID-19 (SARS-CoV-2), JOYCELYN (In-House) (12/09/2021 8:20 AM EDT) SARS CoV 2 Not Detected Not Detected 12/09/2021 12:45 PM EDT [facility] Comment: Negative results do not [...] was completed and performance characteristics established by [facility] as per the FDA and CLIA requirement for this EUA. The Aptima SARS-CoV-2 assay Letter of Authorization, along with the authorized Fact Sheet for Healthcare Providers, the authorized Fact Sheet for Patients, and authorized labeling are available on the FDA website: https://www.fda.gov/medical-devices/iapiegbyh-inrnyqawwt-jsomwvt-devices/emergen - c-dperqbhkvhgjtw-vltpuwv-devices. Performed at [facility], [place], [place] ??[place] License 0385 ??CLIA [id number] Source Nasopharyngeal 12/09/2021 12:45 PM EDT [facility] Microbiology Nasopharyngeal swab / Unknown 12/09/2021 8:20 AM EDT 12/09/2021 8:20 AM EDT us Severiano Hernadez MD MICROBIOLOGY - GENERAL ORDER YOKASTA Final Result [facility] [address] [place] [address] documented in this encounter Visit Diagnoses Diagnosis Encounter for laboratory testing for COVID-19 virus documented in this encounter Care Teams Salmon Troll Fisher Relationship Specialty Start Date End Date Nate Maravilla MD PCP - General Endocrinology 12/15/15 10/18/22 Jennifer Marcelino MD [address] [place] [address] PCP - General Internal Medicine 10/19/22 Jennifer Marcelino MD [address] [place] [address] PCP - MSSP Attributed 08/07/22 05/08/23 Thomas Crews PA-C [address] [place] [address] PCP - MSSP Attributed 05/09/23 02/06/24 Jennifer Marcelino MD [address] [place] [address] PCP - MSSP Attributed 02/07/24 Cipriano Kendrick MD 85 [facility] [address] [place] [address] Chief Data Officer Gastroenterology 03/18/21 Yumiko Hemphill MD [address] [place] [address] Obstetrics and Gynecology 10/19/22 Ami Fields MD [address] [place] [address] Cardiovascular Disease 10/19/22 Chantell Greenwood, EXPELLER OPERATOR [address] [place] [address] [facility] Community Payroll And Benefits Analyst 11/17/22 documented as of this encounter
--- OUTSIDE RECORDS SUMMARY | 2024-09-03 14:28 | XMS_ITS | Encounter Summary ---
Author Organization [facility] Address [address] [place] [address] Care Team Providers Care Director Regulatory Affairs Name Role Phone Nate Maravilla MD Primary Care Provider Cipriano Kendrick MD Unavailable [phone] Jennifer Marcelino MD Primary Care Provider [phone] Yumiko Hemphill MD Unavailable [phone] Ami Fields MD Unavailable [phone] Chantell Greenwood GUTTER INSTALLER Unavailable [phone] Jennifer Marcelino MD Unavailable [phone] Thomas Crews PA-C Unavailable [phone] Jennifer Marcelino MD Unavailable [phone] Encounter Details Date Type Department Care Team (Late st Contact Info) Description 07/29/2021 Lab Requisition [place] COVID-19 Testing Trailer [address] [place] [address] Severiano Hernadez MD 80 [place] [address] Encounter for laboratory testing for COVID-19 virus [...] have Coronavirus / COVID-19? No / Unsure 07/31/2021 11:11 AM EDT documented as of this encounter Plan of Treatment Upcoming Encounters Date Type Department Care Team (Late st Contact Info) Description 10/04/2024 11:15 AM EDT Office Visit [facility] Physicians Department of Cardiology [address] [place] [phone] Ami Fields MD [address] [place] [address] 10/15/2024 9:45 AM EDT Office Visit [facility] [address] [phone] Jennifer Marcelino MD [address] [place] [address] 10/29/2024 3:00 PM EDT Office Visit [facility] [address] [place] [address] Cipriano Kendrick MD [address] [place] [address] 12/26/2024 10:30 AM EDT Consult [facility] Endocrinology [place] [address] [place] [phone] Jennifer Marcelino MD [address] [place] [phone] Aida Casey MD [address] [place] [address] 04/08/2025 9:30 AM EST Office Visit [address] [place] [address] Jennifer Marcelino MD [address] [place] [address], [place] [phone] documented as of this encounter Procedures Procedure Name Priority Date/Time Associated Diagnosis Comments KIANNAAKER COVID-19 (SARS-COV-2), JOYCELYN (IN-HOUSE) BEAKER Routine 07/29/2021 8:58 AM EDT Encounter for laboratory testing for COVID-19 virus [ICD-10-CM] documented in this encounter Results * (ABNORMAL) Beaker COVID-19 (SARS-CoV-2), JOYCELYN (In-House) (07/29/2021 8:58 AM EDT) SARS CoV 2 Detected(A) Not Detected 07/29/2021 10:44 AM EDT [facility] Comment: Positive results are indicative of the presence of SARS-CoV-2 RNA (COVID-19). The SARS-CoV-2 (Covid-19) Nucleic Acid Amplification Assay [...] labeling are available on the FDA website: https://www.fda.gov/medical-devices/coctsnwtt-lgwzuqgjhh-swqboag-devices/emergen -us k-pmsojxiucighcj-javmcaw-devices. Performed at [facility], [place], [place] ??[place] License 0385 ??CLIA [id number] Source Anterior Nares 07/29/2021 10:44 AM EDT [facility] Comment:Performed at [facility], [facility] [place], [place] license No. [id number] CLIA No. [id number] Microbiology Nasopharyngeal swab / Unknown 07/29/2021 8:58 AM EDT 07/29/2021 8:58 AM EDT us Severiano Hernadez MD MICROBIOLOGY - GENERAL ORDER YOKASTA Final Result [facility] [address] [place] [address] documented in this encounter Visit Diagnoses Diagnosis Encounter for laboratory testing for COVID-19 virus documented in this encounter Care Teams Director Regulatory Affairs Relationship Specialty Start Date End Date Nate Maravilla MD PCP - General Endocrinology 12/15/15 10/18/22 Jennifer Marcelino MD [address] [place] [address] PCP - General Internal Medicine 10/19/22 Jennifer Marcelino MD [address] [place] [address] PCP - MSSP Attributed 08/07/22 05/08/23 Thomas Crews PA-C [address] [place] [address] PCP - MSSP Attributed 05/09/23 02/06/24 Jennifer Marcelino MD [address] [place] [address] PCP - MSSP Attributed 02/07/24 Cipriano Kendrick MD 85 [facility] [place] [address] [place] [address] Benefit Specialist Gastroenterology 03/18/21 Yumiko Hemphill MD [address] [place] [address] Obstetrics and Gynecology 10/19/22 Ami Fields MD [address] [place] [address] Cardiovascular Disease 10/19/22 Chantell Greenwood, GUTTER INSTALLER [address] [place] [address] [facility] Community Bed And Breakfast Cook 11/17/22 documented as of this encounter
--- OUTSIDE RECORDS SUMMARY | 2024-09-03 14:28 | XMS_ITS | Encounter Summary ---
Author Organization [facility] Address [address] [place] [address] Care Team Providers Care Contact Lens Polisher Name Role Phone Nate Maravilla MD Primary Care Provider Cipriano Kendrick MD Unavailable [phone] Jennifer Marcelino MD Primary Care Provider [phone] Yumiko Hemphill MD Unavailable [phone] Ami Fields MD Unavailable [phone] Chantell Greenwood CAREER DEVELOPMENT COUNSELOR Unavailable [phone] Jennifer Marcelino MD Unavailable [phone] Thomas Crews PA-C Unavailable [phone] Jennifer Marcelino MD Unavailable [phone] Encounter Details Date Type Department Care Team (Late st Contact Info) Description 05/04/2021 Lab Requisition [place] COVID-19 Testing Trailer [address] [place] [address] Severiano Hernadez MD [address] [place] [address] Encounter for laboratory testing for COVID-19 virus [...] have Coronavirus / COVID-19? No / Unsure 04/27/2021 9:32 AM EST documented as of this encounter Plan of Treatment Upcoming Encounters Date Type Department Care Team (Late st Contact Info) Description 10/04/2024 11:15 AM EDT Office Visit [facility] Physicians Department of Cardiology [place] [address] [place] [address] [address] [place] [phone] Ami Fields MD [address] [place] [address] 10/15/2024 9:45 AM EDT Office Visit [facility] [address] [phone] Jennifer Marcelino MD [address] [place] [address] 10/29/2024 3:00 PM EDT Office Visit [facility] [address] [place] [address] Cipriano Kendrick MD [address] [place] [address] 12/26/2024 10:30 AM EDT Consult [facility] Endocrinology [place] [address] [place] [address] Jennifer Marcelino MD [address] [place] [phone] Aida Casey MD [address] [place] [address] 04/08/2025 9:30 AM EST Office Visit [address] [place] [address] Jennifer Marcelino MD [address] [place] [address], [place] [phone] documented as of this encounter Procedures Procedure Name Priority Date/Time Associated Diagnosis Comments KIANNAAKER COVID-19 (SARS-COV-2), JOYCELYN (IN-HOUSE) BEAKER Routine 05/04/2021 10:28 AM EST Encounter for laboratory testing for COVID-19 virus [ICD-10-CM] documented in this encounter Results * Beaker COVID-19 (SARS-CoV-2), JOYCELYN (In-House) (05/04/2021 10:28 AM EST) SARS CoV 2 Not Detected Not Detected 05/04/2021 12:26 PM EST [facility] Comment: Negative results do not [...] was completed and performance characteristics established by [facility] as per the FDA and CLIA requirement for this EUA. The Aptima SARS-CoV-2 assay Letter of Authorization, along with the authorized Fact Sheet for Healthcare Providers, the authorized Fact Sheet for Patients, and authorized labeling are available on the FDA website: https://www.fda.gov/medical-devices/kckgpvomn-hmkdqervis-epgcdzw-devices/emergen -us x-pkktyuuwmoqkcn-zdkster-devices. Performed at [facility], [place], [place] ??[place] License 0385 ??CLIA [id number] Source Anterior Nares 05/04/2021 12:26 PM EST [facility] Comment:Performed at [facility], [place] license No. [id number] CLIA No. [id number] Microbiology Nasopharyngeal swab / Unknown 05/04/2021 10:28 AM EST 05/04/2021 10:28 AM EST us Severiano Hernadez MD MICROBIOLOGY - GENERAL ORDER YOKASTA Final Result [facility] [address] [place] [address] documented in this encounter Visit Diagnoses Diagnosis Encounter for laboratory testing for COVID-19 virus documented in this encounter Care Teams Contact Lens Polisher Relationship Specialty Start Date End Date Nate Maravilla MD PCP - General Endocrinology 12/15/15 10/18/22 Jennifer Marcelino MD [address] [place] [address] PCP - General Internal Medicine 10/19/22 Jennifer Marcelino MD [address] [place] [address] PCP - MSSP Attributed 08/07/22 05/08/23 Thomas Crews PA-C [address] [place] [address] PCP - MSSP Attributed 05/09/23 02/06/24 Jennifer Marcelino MD [address] [place] [address] PCP - MSSP Attributed 02/07/24 Cipriano Kendrick MD 85 [facility] 1000 [place] [address] Cad Designer Gastroenterology 03/18/21 Yumiko Hemphill MD [address] [place] [address] Obstetrics and Gynecology 10/19/22 Ami Fields MD [address] [place] [address] Cardiovascular Disease 10/19/22 Chantell Greenwood, CAREER DEVELOPMENT COUNSELOR [address] [place] [address] [facility] Community Floor Sanding Machine Operator 11/17/22 documented as of this encounter
--- OUTSIDE RECORDS SUMMARY | 2024-09-03 14:28 | XMS_ITS | Encounter Summary ---
Author Organization [facility] Address [address] [place] [address] Care Team Providers Care Security Developer Name Role Phone Nate Maravilla MD Primary Care Provider [phone] Monika Cooper RN Unavailable [phone] Cipriano Kendrick MD Unavailable [phone] Jennifer Macrelino MD Primary Care Provider [phone] Yumiko Hemphill MD Unavailable [phone] Ami Fields MD Unavailable [phone] Chantell Greenwood DUCT LAYER HELPER Unavailable [phone] Jennifer Marcelino MD Unavailable [phone] Thomas Crews PA-C Unavailable [phone] Jennifer Marcelino MD Unavailable [phone] Encounter Details Date Type Department Care Team (Late st Contact Info) Description 02/09/2021 Lab Requisition [place] COVID-19 Testing Trailer [address] [place] [address] Severiano Hernadez MD 80 [place], [place] [address] Encounter for laboratory testing for COVID-19 virus [...] have Coronavirus / COVID-19? No / Unsure 02/11/2021 6:49 AM EDT documented as of this encounter Plan of Treatment Upcoming Encounters Date Type Department Care Team (Late st Contact Info) Description 10/04/2024 11:15 AM EDT Office Visit [facility] Physicians Department of Cardiology [address] [place] [address] Ami Fields MD [address] [place] [address] 10/15/2024 9:45 AM EDT Office Visit [address] [phone] Jennifer Marcelino MD [address] [place] [address] 10/29/2024 3:00 PM EDT Office Visit [facility] [address] [place] [phone] Cipriano Kendrick MD 85 [facility] 324 [place] [address] 12/26/2024 10:30 AM EDT Consult [facility] Endocrinology [place] [address] [place] [address] Jennifer Marcelino MD [address] [place] [address] Aida Casey MD [address] [place] [address] 04/08/2025 9:30 AM EST Office Visit [address] [place] [address] Jennifer Marcelino MD [address] [place] [address] documented as of this encounter Procedures Procedure Name Priority Date/Time Associated Diagnosis Comments BEAKER COVID-19 (SARS-COV-2), JOYCELYN (IN-HOUSE) BEAKER Routine 02/09/2021 8:41 AM EDT Encounter for laboratory testing for COVID-19 virus [ICD-10-CM] documented in this encounter Results * Beaker COVID-19 (SARS-CoV-2), JOYCELYN (In-House) (02/09/2021 8:41 AM EDT) SARS CoV 2 Not Detected Not Detected 02/09/2021 10:29 AM EDT [facility] Comment: Negative results do not [...] was completed and performance characteristics established by [facility] as per the FDA and CLIA requirement for this EUA. The Aptima SARS-CoV-2 assay Letter of Authorization, along with the authorized Fact Sheet for Healthcare Providers, the authorized Fact Sheet for Patients, and authorized labeling are available on the FDA website: https://www.fda.gov/medical-devices/zmciqynyd-kysmpcxnea-hapfuls-devices/emergen -us g-yscvgvortvlnrm-jnetepa-devices. Performed at [facility], [place], [place] ??[place] License 0385 ??CLIA [id number] Source Anterior Nares 02/09/2021 10:29 AM EDT [facility] Comment:Performed at [facility], [place], [place] license No. [id number] CLIA No. [id number] Microbiology Nasopharyngeal swab / Unknown 02/09/2021 8:41 AM EDT 02/09/2021 8:41 AM EDT us Severiano Hernadez MD MICROBIOLOGY - GENERAL ORDER YOKASTA Final Result [facility] [address] [place] [address] documented in this encounter Visit Diagnoses Diagnosis Encounter for laboratory testing for COVID-19 virus documented in this encounter Care Teams Security Developer Relationship Specialty Start Date End Date Nate Maravilla MD PCP - General Endocrinology 12/15/15 10/18/22 Jennifer Marcelino MD [address] [place] [address] PCP - General Internal Medicine 10/19/22 Jennifer Marcelino MD [address] [place] [address] PCP - MSSP Attributed 08/07/22 05/08/23 Thomas Crews, PA-C [address] [place] [address] PCP - MSSP Attributed 05/09/23 02/06/24 Jennifer Marcelino MD [address] [place] [address] PCP - MSSP Attributed 02/07/24 Monika Cooper, RN [address] [place] [address] [facility] Community Workday Manager 03/17/1803/22 Cipriano Kendrick MD 85 [facility] 1000 [place] [address] Ice Platform Supervisor Gastroenterology 03/18/21 Yumiko Hemphill MD [address] [place] [address] Obstetrics and Gynecology 10/19/22 Ami Fields MD [address] [employer] [address] [place] [address] Cardiovascular Disease 10/19/22 Chantell Greenwood, DUCT LAYER HELPER [address] [employer]michelle [place] [address] [place] [address] [facility] Community Workday Manager 11/17/22 documented as of this encounter
--- OUTSIDE RECORDS SUMMARY | 2024-09-03 14:28 | XMS_ITS | Encounter Summary ---
Author Organization [facility] Address [address] [place] [address] Care Team Providers Care Research Electrician Name Role Phone Nate Maravilla MD Primary Care Provider Cipriano Kendrick MD Unavailable [phone] Jennifer Marcelino MD Primary Care Provider [phone] Yumiko Hemphill MD Unavailable [phone] Ami Fields MD Unavailable [phone] Chantell Greenwood TIME STUDY ANALYST Unavailable [phone] Jennifer Marcelino MD Unavailable [phone] Thomas Crews PA-C Unavailable [phone] Jennifer Marcelino MD Unavailable [phone] Encounter Details Date Type Department Care Team (Late st Contact Info) Description 06/18/2021 Lab Requisition [place] COVID-19 Testing Trailer [address] [place] [address] Severiano Hernadez MD 80 [place] [address] Encounter for laboratory testing for COVID-19 virus [...] [facility] Physicians Department of Cardiology [place] [address] [place] [address] [address] [place] [phone] Ami Fields MD [address] [place] [address] 10/15/2024 9:45 AM EDT Office Visit [facility] Medical [address] [phone] Jennifer Marcelino MD [address] [place] [address] 10/29/2024 3:00 PM EDT Office Visit [facility] 320 [place] [address] Cipriano Kendrick MD [address] [place] [address] 12/26/2024 10:30 AM EDT Consult [facility] Endocrinology [place] [address] [place] [address] Jennifer Marcelino MD [address] [place] [phone] Aida Casey MD [address] [place] [address] 04/08/2025 9:30 AM EST Office Visit [address] [place] [address] Jennifer Marcelino MD [address] [place] [address], [place] [phone] documented as of this encounter Procedures Procedure Name Priority Date/Time Associated Diagnosis Comments ANTHONY COVID-19 (SARS-COV-2), JOYCELYN (IN-HOUSE) KIANNAAKER Routine 06/18/2021 8:26 AM EST Encounter for laboratory testing for COVID-19 virus [ICD-10-CM] documented in this encounter Results * Kiannaaker COVID-19 (SARS-CoV-2), JOYCELYN (In-House) (06/18/2021 8:26 AM EST) SARS CoV 2 Not Detected Not Detected 06/18/2021 10:18 AM EST [facility] Comment: Negative results do [...] was completed and performance characteristics established by [facility] as per the FDA and CLIA requirement for this EUA. The Aptima SARS-CoV-2 assay Letter of Authorization, along with the authorized Fact Sheet for Healthcare Providers, the authorized Fact Sheet for Patients, and authorized labeling are available on the FDA website: https://www.fda.gov/medical-devices/xccxgazpf-rfzwuujqdw-gqjeyso-devices/emergen -us q-nmvgqdhjqfpipp-yrihapy-devices. Performed at [facility], [place], [place] ??[place] License 0385 ??CLIA [id number] Source Anterior Nares 06/18/2021 10:18 AM EST [facility] Comment:Performed at [facility], [place] license No. [id number] CLIA No. [id number] Microbiology Nasopharyngeal swab / Unknown 06/18/2021 8:26 AM EST 06/18/2021 8:26 AM EST us Severiano Hernadez MD MICROBIOLOGY - GENERAL ORDER YOKASTA Final Result [facility] [address] [place] [address] documented in this encounter Visit Diagnoses Diagnosis Encounter for laboratory testing for COVID-19 virus documented in this encounter Care Teams Research Electrician Relationship Specialty Start Date End Date Nate Maravilla MD PCP - General Endocrinology 12/15/15 10/18/22 Jennifer Marcelino MD [address] [place] [address] PCP - General Internal Medicine 10/19/22 Jennifer Marcelino MD [address] [place] [address] PCP - MSSP Attributed 08/07/22 05/08/23 Thomas Crews PA-C 445 [place] [address] PCP - MSSP Attributed 05/09/23 02/06/24 Jennifer Marcelino MD [address] [place] [address] PCP - MSSP Attributed 02/07/24 Cipriano Kendrick MD 85 [facility] 1000 [place] [address] Bag Loader Gastroenterology 03/18/21 Yumiko Hemphill MD [address] [place] [address] Obstetrics and Gynecology 10/19/22 Ami Fields MD [address] [place] [address] Cardiovascular Disease 10/19/22 Chantell Greenwood, TIME STUDY ANALYST [address] [place] [address] ICP Community Compensation Administrator 11/17/22 documented as of this encounter
--- OUTSIDE RECORDS SUMMARY | 2024-09-03 14:28 | XMS_ITS | Encounter Summary ---
Author Organization [facility] Address [address] [place] [address] Care Team Providers Care Feltmaker And Weigher Name Role Phone Nate Maravilla MD Primary Care Provider Cipriano Kendrick MD Unavailable [phone] Jennifer Marcelino MD Primary Care Provider [phone] Yumiko Hemphill MD Unavailable [phone] Ami Fields MD Unavailable [phone] Chantell Greenwood SURGICAL DENTAL ASSISTANT Unavailable [phone] Jennifer Marcelino MD Unavailable [phone] Thomas Crews PA-C Unavailable [phone] Jennifer Marcelino MD Unavailable [phone] Encounter Details Date Type Department Care Team (Late st Contact Info) Description 04/14/2022 Lab Requisition [place] COVID-19 Testing Trailer [address] [place] [address] Severiano Hernadez MD [address] [place] [address] Encounter for laboratory testing for COVID-19 virus [...] suspected to have Coronavirus/COVID-19? Unable to assess 04/14/2022 8:49 AM EST documented as of this encounter Plan of Treatment Upcoming Encounters Date Type Department Care Team (Late st Contact Info) Description 10/04/2024 11:15 AM EDT Office Visit [facility] Physicians Department of Cardiology [address] [place] [phone] Ami Fields MD [address] [place] [address] 10/15/2024 9:45 AM EDT Office Visit [facility] [address] [phone] Jennifer Marcelino MD [address] [place] [address] 10/29/2024 3:00 PM EDT Office Visit [facility] [address] [place] [address] Cipriano Kendrick MD [address] [place] [address] 12/26/2024 10:30 AM EDT Consult [facility] Endocrinology [place] [address] [place] [address] Jennifer Marcelino MD [address] [place] [address], [place] [phone] Aida Casey MD [address] [place] [address] 04/08/2025 9:30 AM EST Office Visit [address] [place] [address] Jennifer Marcelino MD [address] [place] [address], [place] [id number] documented as of this encounter Procedures Procedure Name Priority Date/Time Associated Diagnosis Comments ANTHONY COVID-19 (SARS-COV-2), JOYCELYN (IN-HOUSE) BEAKER Routine 04/14/2022 8:51 AM EST Encounter for laboratory testing for COVID-19 virus [ICD-10-CM] documented in this encounter Results * Immanuelaker COVID-19 (SARS-CoV-2), JOYCELYN (In-House) (04/14/2022 8:51 AM EST) SARS CoV 2 Not Detected Not Detected 04/14/2022 11:12 AM EST [facility] Comment: Negative results [...] and performance characteristics established by [facility] as per the FDA and CLIA requirement for this EUA. The Aptima SARS-CoV-2 assay Letter of Authorization, along with the authorized Fact Sheet for Healthcare Providers, the authorized Fact Sheet for Patients, and authorized labeling are available on the FDA website: https://www.fda.gov/medical-devices/sqkeekmpn-mqdqkdbxmy-vglgtug-devices/emergen -us r-aaclamkljnsazj-hqlnfvi-devices. Performed at [facility], [place], [place] ??[place] License 0385 ??CLIA [id number] Source Nasopharyngeal 04/14/2022 11:12 AM EST [facility] Comment:Performed at [facility], [place] license No. [id number] CLIA No. [id number] Microbiology Nasopharyngeal swab / Unknown 04/14/2022 8:51 AM EST 04/14/2022 8:51 AM EST us Severiano Hernadez MD MICROBIOLOGY - GENERAL ORDER YOKASTA Final Result [facility] [address] [place] [address] documented in this encounter Visit Diagnoses Diagnosis Encounter for laboratory testing for COVID-19 virus documented in this encounter Care Teams Feltmaker And Weigher Relationship Specialty Start Date End Date Nate Maravilla MD PCP - General Endocrinology 12/15/15 10/18/22 Jennifer Marcelino MD [address] [place] [address] PCP - General Internal Medicine 10/19/22 Jennifer Marcelino MD [address] [place] [address] PCP - MSSP Attributed 08/07/22 05/08/23 Thomas Crews PA-C [address] [place] [address] PCP - MSSP Attributed 05/09/23 02/06/24 Jennifer Marcelino MD [address] [place] [address] PCP - MSSP Attributed 02/07/24 Cipriano Kendrick MD 85 [facility] [address] [place] [address] Machine Crater Gastroenterology 03/18/21 Yumiko Hemphill MD [address] [place] [address] Obstetrics and Gynecology 10/19/22 Ami Fields MD [address] [place] [address] Cardiovascular Disease 10/19/22 Chantell Greenwood, SURGICAL DENTAL ASSISTANT [address] [place], [place] [id number] [facility] Community Paper Bag Press Operator 11/17/22 documented as of this encounter
--- OUTSIDE RECORDS SUMMARY | 2024-09-03 14:28 | XMS_ITS | Encounter Summary ---
Author Organization [facility] Address [address] [place] [address] Care Team Providers Care Fleet Maintenance Manager Name Role Phone Nate Maravilla MD Primary Care Provider Cipriano Kendrick MD Unavailable [phone] Jennifer Marcelino MD Primary Care Provider [phone] Yumiko Hemphill MD Unavailable [phone] Ami Fields MD Unavailable [phone] Chantell Greenwood GRINDER MACHINE SETTER Unavailable [phone] Jennifer Marcelino MD Unavailable [phone] Thomas Crews PA-C Unavailable [phone] Jennifer Marcelino MD Unavailable [phone] Encounter Details Date Type Department Care Team (Late st Contact Info) Description 01/15/2022 Lab Requisition [place] COVID-19 Testing Trailer [address] [place] [address] Severiano Hernadez MD [address] [place] [address] Encounter for laboratory testing for COVID-19 virus [...] Description 10/04/2024 11:15 AM EDT Office Visit [facility] Physicians Department of Cardiology [address] [place] [address] Ami Fields MD [address] [place] [address] 10/15/2024 9:45 AM EDT Office Visit [address] [phone] Jennifer Marcelino MD [address] [place] [address] 10/29/2024 3:00 PM EDT Office Visit [facility] [address] [place] [address] Cipriano Kendrick MD [address] [place] [address] 12/26/2024 10:30 AM EDT Consult [facility] Endocrinology [address] [place] [address] Jennifer Marcelino MD 445 [place] [address] Aida Csaey MD [address] [place] [address] 04/08/2025 9:30 AM EST Office Visit [facility] Medical [address] [place] [address] Jennifer Marcelino MD [address] [place] [address] documented as of this encounter Procedures Procedure Name Priority Date/Time Associated Diagnosis Comments BEAKER COVID-19 (SARS-COV-2), JOYCELYN (IN-HOUSE) BEAKER Routine 01/15/2022 9:24 AM EDT Encounter for laboratory testing for COVID-19 virus [ICD-10-CM] documented in this encounter Results * Beaker COVID-19 (SARS-CoV-2), JOYCELYN (In-House) (01/15/2022 9:24 AM EDT) SARS CoV 2 Not Detected Not Detected 01/15/2022 10:10 AM EDT [facility] Comment: Negative results do not [...] labeling are available on the FDA website: https://www.fda.gov/medical-devices/lzjgrgtqa-kckrpifxpj-twhcqfx-devices/emergen - j-jefdjfnmlcigwf-ysrlhdq-devices. Performed at [facility], [place], [place] ??[place] License 0385 ??CLIA [id number] Source Nasopharyngeal 01/15/2022 10:10 AM EDT [facility] Microbiology Nasopharyngeal swab / Unknown 01/15/2022 9:24 AM EDT 01/15/2022 9:24 AM EDT us Severiano Hernadez MD MICROBIOLOGY - GENERAL ORDER YOKASTA Final Result [facility] [address] [place] [address] documented in this encounter Visit Diagnoses Diagnosis Encounter for laboratory testing for COVID-19 virus documented in this encounter Care Teams Fleet Maintenance Manager Relationship Specialty Start Date End Date Nate Maravilla MD PCP - General Endocrinology 12/15/15 10/18/22 Jennifer Marcelino MD [address] [place] [address] PCP - General Internal Medicine 10/19/22 Jennifer Marcelino MD [address] [place] [address] PCP - MSSP Attributed 08/07/22 05/08/23 Thomas Crews PA-C [address] [place] [address] PCP - MSSP Attributed 05/09/23 02/06/24 Jennifer Marcelino MD [address] [place] [address] PCP - MSSP Attributed 02/07/24 Cipriano Kendrick MD 85 [facility] 1000 [place] [address] Wellness Coordinator Gastroenterology 03/18/21 Yumiko Hemphill MD [address] [place] [address] Obstetrics and Gynecology 10/19/22 mAi Fields MD [address] [place] [address] Cardiovascular Disease 10/19/22 Chantell Greenwood, GRINDER MACHINE SETTER [address] [place] [address] [facility] Community Biofuels Product Development Manager 11/17/22 documented as of this encounter
--- OUTSIDE RECORDS SUMMARY | 2024-09-03 14:28 | XMS_ITS | Encounter Summary ---
Author Organization [facility] Address [address] [place] [address] Care Team Providers Care Lab Courier Name Role Phone Nate Maravilla MD Primary Care Provider [phone] Monika Cooper RN Unavailable [phone] Cipriano Kendrick MD Unavailable [phone] Jennifer Marcelino MD Primary Care Provider [phone] Yumiko Hemphill MD Unavailable [phone] Ami Fields MD Unavailable [phone] Chantell Greenwood CELLOPHANE PRESS OPERATOR Unavailable [phone] Jennifer Marcelino MD Unavailable [phone] Thomas Crews PA-C Unavailable [phone] Jennifer Marcelino MD Unavailable [phone] Encounter Details Date Type Department Care Team (Late st Contact Info) Description 02/18/2021 Lab Requisition [place] COVID-19 Testing Trailer [address] [place] [address] Severiano Hernadez MD [address] [place], [place] [phone] Encounter for laboratory testing for COVID-19 virus [...] Description 10/04/2024 11:15 AM EDT Office Visit [facility] Physicians Department of Cardiology [address] [place] [address] Ami Fields MD [address] [place] [address] 10/15/2024 9:45 AM EDT Office Visit [address] [phone] Jennifer Marcelino MD [address] [place] [address] 10/29/2024 3:00 PM EDT Office Visit [facility] [address] [place] [phone] Cipriano Kendrick MD [address] [place] [address] 12/26/2024 10:30 AM EDT Consult [facility] Endocrinology [place] [address] [place] [address] Jennifer Marcelino MD [address] [place] [address] Aida Casey MD [address] [place] [address] 04/08/2025 9:30 AM EST Office Visit [address] [place] [address] Jennifer Marcelino MD [address] [place] [address] documented as of this encounter Procedures Procedure Name Priority Date/Time Associated Diagnosis Comments BEAKER COVID-19 (SARS-COV-2), JOYCELYN (IN-HOUSE) BEAKER Routine 02/18/2021 12:40 PM EDT Encounter for laboratory testing for COVID-19 virus [ICD-10-CM] documented in this encounter Results * Beaker COVID-19 (SARS-CoV-2), JOYCELYN (In-House) (02/18/2021 12:40 PM EDT) SARS CoV 2 Not Detected Not Detected 02/18/2021 3:17 PM EDT [facility] Comment: Negative results do [...] was completed and performance characteristics established by [facility] as per the FDA and CLIA requirement for this EUA. The Aptima SARS-CoV-2 assay Letter of Authorization, along with the authorized Fact Sheet for Healthcare Providers, the authorized Fact Sheet for Patients, and authorized labeling are available on the FDA website: https://www.fda.gov/medical-devices/xhurxxogv-yqqbownmiv-rngkmiz-devices/emergen -us d-rkemefebsksdvc-knjcxip-devices. Performed at [facility], [place], [place] ??[place] License 0385 ??CLIA [id number] Source Anterior Nares 02/18/2021 3:17 PM EDT [facility] Comment:Performed at [facility], [place], [place] license No. [id number] CLIA No. [id number] Microbiology Nasopharyngeal swab / Unknown 02/18/2021 12:40 PM EDT 02/18/2021 12:41 PM EDT us Severiano Hernadez MD MICROBIOLOGY - GENERAL ORDER YOKASTA Final Result [facility] [address] [place] [address] documented in this encounter Visit Diagnoses Diagnosis Encounter for laboratory testing for COVID-19 virus documented in this encounter Care Teams Lab Courier Relationship Specialty Start Date End Date Nate Maravilla MD PCP - General Endocrinology 12/15/15 10/18/22 Jennifer Marcelino MD [address] [place] [address] PCP - General Internal Medicine 10/19/22 Jennifer Marcelino MD [address] [place] [address] PCP - MSSP Attributed 08/07/22 05/08/23 Thomas Crews, PA-C [address] [place] [address] PCP - MSSP Attributed 05/09/23 02/06/24 Jennifer Marcelino MD [address] [place] [address] PCP - MSSP Attributed 02/07/24 Monika Cooper, RN [address] [place] [address] [facility] Community Coffee Urn Attendant 03/17/1803/22 Cipriano Kendrick MD 85 [facility] 1000 [place] [address] Brazing Furnace Feeder Gastroenterology 03/18/21 Yumiko Hemphill MD [address] [place] [address] Obstetrics and Gynecology 10/19/22 Ami Fields MD [address] [facility] [address] [place] [address] Cardiovascular Disease 10/19/22 Chantell Greenwood, CELLOPHANE PRESS OPERATOR [address] [place] [address] [facility] Community Coffee Urn Attendant 11/17/22 documented as of this encounter
--- OUTSIDE RECORDS SUMMARY | 2024-09-03 14:28 | XMS_ITS | Encounter Summary ---
Author Organization [facility] Address [address] [place] [address] Care Team Providers Care Air Defense Artillery Officer Name Role Phone Nate Maravilla MD Primary Care Provider [phone] Monika Cooper RN Unavailable [phone] Nate Maravilla MD Unavailable [phone] Cipirano Kendrick MD Unavailable [phone] Jennifer Marcelino MD Primary Care Provider [phone] Yumiko Hemphill MD Unavailable [phone] Ami Fields MD Unavailable [phone] Chantell Grenewood Unavailable [phone] Jennifer Marcelino MD Unavailable [phone] Thomas Crews PA-C Unavailable [phone] Jennifer Marcelino MD Unavailable [phone] Encounter Details Date Type Department Care Team (Late st Contact Info) Description 11/13/2019 Scanned Document [facility] [address] [facility] [place] [address] [place] [address] Jeff Bernal MD Social History Tobacco Use Types Packs/Day Years Used Date Smoking Tobacco: Never Alcohol Use Standard Drinks/Week Comments [...] have Coronavirus / COVID-19? Unable to assess 11/09/2019 8:01 AM EDT documented as of this encounter Plan of Treatment Upcoming Encounters Date Type Department Care Team (Late st Contact Info) Description 10/04/2024 11:15 AM EDT Office Visit [facility] Department of Cardiology [place] [address] [place] [address] [address] [place] [address] Ami Fields MD [address] [place], [place] [address] 10/15/2024 9:45 AM EDT Office Visit [address] [phone] Jennifer Marcelino MD [address] [place] [address] 10/29/2024 3:00 PM EDT Office Visit [facility] [address] [place] [address] Cipriano Kendrick MD [address] [place] [address] 12/26/2024 10:30 AM EDT Consult [facility] Endocrinology [place] [address] [place] [address] Jennifer Marcelino MD [address] [place] [address] Aida Casey MD [address] [address] 04/08/2025 9:30 AM EST Office Visit [address] [phone] Jennifer Marcelino MD [address] [place] [id number] documented as of this encounter Procedures Procedure Name Priority Date/Time Associated Diagnosis Comments PATHOLOGY REPORT 11/13/2019 12:0 0 AM EDT documented in this encounter Results * (REPORT) PATHOLOGY REPORT (11/13/2019 12:00 AM EDT) Jeff Bernal MD PATHOLOGY/CYTOLOGY ORDERABLE S Final Result documented in this encounter Visit Diagnoses Not on filedocumented in this encounter Care Teams Air Defense Artillery Officer Relationship Specialty Start Date End Date Nate Maravilla MD PCP - General Endocrinology 12/15/15 10/18/22 Nate Maravilla MD [address] [phone] PCP - [employer] Medicare Attributed 10/08/19 05/08/20 Jennifer Marcelino MD [address] [place] [id number] PCP - General Internal Medicine 10/19/22 Jennifer Marcelino MD [address] [place] [address] PCP - MSSP Attributed 08/07/22 05/08/23 Thomas Crews, BASILIAC [address] [place] [address] PCP - MSSP Attributed 05/09/23 02/06/24 Jennifer Marcelino MD [address] [place] [address] PCP - MSSP Attributed 02/07/24 Monika Cooper, RN [address] [place] [address] [facility] Community Logistics Technician 03/17/18 03/22/21 Cipriano Kendrick MD [address] [place] [address] 1000 [place] [address] Field Map Technician Gastroenterology 03/18/21 Yumiko Hemphill MD [address] [place] [address] Obstetrics and Gynecology 10/19/22 Ami Fields MD 1260 [facility] [address] [place] [address] Cardiovascular Disease 10/19/22 Chantell Greenwood, EXECUTIVE DIRECTOR [address] [place] [address] [facility] Community Logistics Technician 11/17/22 documented as of this encounter
--- OUTSIDE RECORDS SUMMARY | 2024-09-03 14:28 | XMS_ITS | Encounter Summary ---
Author Organization [facility] Address [address] [place] [address] Care Team Providers Care Exceptional Children Teacher Assistant Name Role Phone Nate Maravilla MD Primary Care Provider Cipriano Kendrick MD Unavailable [phone] Jennifer Marcelino MD Primary Care Provider [phone] Yumiko Hemphill MD Unavailable [phone] Ami Fields MD Unavailable [phone] Chantell Greenwood INSTRUCTOR TAP DANCING Unavailable [phone] Jennifer Marcelino MD Unavailable [phone] Thomas Crews PA-C Unavailable [phone] Jennifer Marcelino MD Unavailable [phone] Encounter Details Date Type Department Care Team (Late st Contact Info) Description 06/03/2021 Lab Requisition [place] COVID-19 Testing Trailer [address] [place] [address] Severiano Hernadez MD 80 [place] [address] Encounter for laboratory testing for COVID-19 virus [...] Description 10/04/2024 11:15 AM EDT Office Visit [facility] Physicians Department of Cardiology [place] [address] [place] [address] [address] [place] [phone] Ami Fields MD [address] [place] [address] 10/15/2024 9:45 AM EDT Office Visit [facility] [address] [phone] Jennifer Marcelino MD [address] [place] [address] 10/29/2024 3:00 PM EDT Office Visit [facility] 320 [place] [address] Cipriano Kendrick MD [address] [place] [address] 12/26/2024 10:30 AM EDT Consult [facility] Endocrinology [place] [address] [place] [address] Jennifer Marcelino MD [address] [place] [phone] Aida Casey MD [address] [place] [address] 04/08/2025 9:30 AM EST Office Visit [address] [place] [address] Jennifer Marcelino MD [address] [place] [address], [place] [phone] documented as of this encounter Procedures Procedure Name Priority Date/Time Associated Diagnosis Comments ANTHONY COVID-19 (SARS-COV-2), JOYCELYN (IN-HOUSE) BEAKER Routine 06/03/2021 8:44 AM EST Encounter for laboratory testing for COVID-19 virus [ICD-10-CM] documented in this encounter Results * Immanuelaker COVID-19 (SARS-CoV-2), JOYCELYN (In-House) (06/03/2021 8:44 AM EST) SARS CoV 2 Not Detected Not Detected 06/03/2021 10:38 AM EST [facility] Comment: Negative results [...] was completed and performance characteristics established by [facility] as per the FDA and CLIA requirement for this EUA. The Aptima SARS-CoV-2 assay Letter of Authorization, along with the authorized Fact Sheet for Healthcare Providers, the authorized Fact Sheet for Patients, and authorized labeling are available on the FDA website: https://www.fda.gov/medical-devices/freodcibg-rkplfeztuv-fuqeixm-devices/emergen -us m-bninztkdxaviri-brsrjhc-devices. Performed at [facility], [place], [place] ??[place] License 0385 ??CLIA [id number] Source Anterior Nares 06/03/2021 10:38 AM EST [facility] Comment:Performed at [facility], [facility], [place] license No. [id number] CLIA No. [id number] Microbiology Nasopharyngeal swab / Unknown 06/03/2021 8:44 AM EST 06/03/2021 8:44 AM EST us Severiano Hernadez MD MICROBIOLOGY - GENERAL ORDER YKOASTA Final Result [facility] [address] [place] [address] documented in this encounter Visit Diagnoses Diagnosis Encounter for laboratory testing for COVID-19 virus documented in this encounter Care Teams Exceptional Children Teacher Assistant Relationship Specialty Start Date End Date Nate Maravilla MD PCP - General Endocrinology 12/15/15 10/18/22 Jennifer Marcelino MD 445 [place] [address] PCP - General Internal Medicine 10/19/22 Jennifer Marcelino MD 445 [place] [address] PCP - MSSP Attributed 08/07/22 05/08/23 Thomas Crews PA-C 445 [place] [address] PCP - MSSP Attributed 05/09/23 02/06/24 Jennifer Marcelino MD [address] [place] [address] PCP - MSSP Attributed 02/07/24 Cipriano Kendrick MD 85 [facility] [place] [facility] 1000 [place] [address] Director Of Oncology Gastroenterology 03/18/21 Yumiko Hemphill MD [address] [place] [address] Obstetrics and Gynecology 10/19/22 Ami Fields MD [address] [place] [address] Cardiovascular Disease 10/19/22 Chantell Greenwood, INSTRUCTOR TAP DANCING [address] [place] [address] ICP Community Peoplesoft 11/17/22 documented as of this encounter
--- OUTSIDE RECORDS SUMMARY | 2024-09-03 14:28 | XMS_ITS | Encounter Summary ---
Author Organization [facility] Address [address] [place] [address] Care Team Providers Care Certified Scrub Tech Name Role Phone Nate Maravilla MD Primary Care Provider Cipriano Kendrick MD Unavailable [phone] Jennifer Marcelino MD Primary Care Provider [phone] Yumiko Hemphill MD Unavailable [phone] Ami Fields MD Unavailable [phone] Chantell Greenwood RISK CONTROL MANAGER Unavailable [phone] Jennifer Marcelino MD Unavailable [phone] Thomas Crews PA-C Unavailable [phone] Jennifer Marcelino MD Unavailable [phone] Encounter Details Date Type Department Care Team (Late st Contact Info) Description 04/09/2022 Lab Requisition [place] COVID-19 Testing Trailer [address] [place] [address] Severiano Hernadez MD [address] [place] [address] Encounter for laboratory testing for COVID-19 virus [...] 10/04/2024 11:15 AM EDT Office Visit [facility] Physicians Department of Cardiology [address] [place] [address] Ami Fields MD [address] [place] [address] 10/15/2024 9:45 AM EDT Office Visit [address] [phone] eJnnifer Marcelino MD [address] [place] [address] 10/29/2024 3:00 PM EDT Office Visit [facility] [address] [place] [address] Cipriano Kendrick MD [address] [place] [address] 12/26/2024 10:30 AM EDT Consult [facility] Endocrinology [address] [place] [address] Jennifer Marcelino MD [address] [place] [address] Aida Casey MD [address] [place] [address] 04/08/2025 9:30 AM EST Office Visit [facility] Medical [address] [place] [phone] Jennifer Marcelino MD [address] [place] [address] documented as of this encounter Procedures Procedure Name Priority Date/Time Associated Diagnosis Comments BEAKER COVID-19 (SARS-COV-2), JOYCELYN (IN-HOUSE) BEAKER Routine 04/09/2022 8:42 AM EST Encounter for laboratory testing for COVID-19 virus [ICD-10-CM] documented in this encounter Results * Beaker COVID-19 (SARS-CoV-2), JOYCELYN (In-House) (04/09/2022 8:42 AM EST) SARS CoV 2 Not Detected Not Detected 04/09/2022 10:57 AM EST [facility] Comment: Negative results do [...] [facility] as per the FDA and CLIA requirement for this EUA. The Aptima SARS-CoV-2 assay Letter of Authorization, along with the authorized Fact Sheet for Healthcare Providers, the authorized Fact Sheet for Patients, and authorized labeling are available on the FDA website: https://www.fda.gov/medical-devices/bxbbriarn-tuqvvyqkqu-rjlsksg-devices/emergen - o-xorxrgmxcmnspr-kntkfct-devices. Performed at [facility], [place], [place] License 0385 ??CLIA [id number] Source Nasopharyngeal 04/09/2022 10:57 AM EST [facility] Microbiology Nasopharyngeal swab / Unknown 04/09/2022 8:42 AM EST 04/09/2022 8:43 AM EST us Severiano Hernadez MD MICROBIOLOGY - GENERAL ORDER YOKASTA Final Result [facility] [address] [place] [address] documented in this encounter Visit Diagnoses Diagnosis Encounter for laboratory testing for COVID-19 virus documented in this encounter Care Teams Certified Scrub Tech Relationship Specialty Start Date End Date Nate Maravilla MD PCP - General Endocrinology 12/15/15 10/18/22 Jennifer Marcelino MD [address] [place] [address] PCP - General Internal Medicine 10/19/22 Jennifer Marcelino MD [address] [place] [address] PCP - MSSP Attributed 08/07/22 05/08/23 Thomas Crews PA-C [address] [place] [address] PCP - MSSP Attributed 05/09/23 02/06/24 Jennifer Marcelino MD [address] [place] [address] PCP - MSSP Attributed 02/07/24 Cipriano Kendrick MD 85 [facility] [address] [place] [address] Legal Activity Adjudicator Gastroenterology 03/18/21 Yumiko Hemphill MD [address] [place] [address] Obstetrics and Gynecology 10/19/22 Ami Fields MD [address] [facility] [address] [place] [address] Cardiovascular Disease 10/19/22 Chantell Greenwood, RISK CONTROL MANAGER [address] [facility] [address] [place] [address] ICP Community Director Of Safety And Security 11/17/22 documented as of this encounter
--- OUTSIDE RECORDS SUMMARY | 2024-09-03 14:29 | XMS_ITS | Encounter Summary ---
Author Organization [facility] Address [address] [place] [address] Care Team Providers Care Tank House Operator Helper Name Role Phone Nate Maravilla MD Primary Care Provider Cipriano Kendrick MD Unavailable [phone] Jennifer Marcelino MD Primary Care Provider [phone] Yumiko Hemphill MD Unavailable [phone] Ami Fields MD Unavailable [phone] Chantell Greenwood TITLE I PARAPROFESSIONAL Unavailable [phone] Jennifer Marcelino MD Unavailable [phone] Thomas Crews PA-C Unavailable [phone] Jennifer Marcelino MD Unavailable [phone] Encounter Details Date Type Department Care Team (Late st Contact Info) Description 04/16/2021 Lab Requisition [place] COVID-19 Testing Trailer [address] [place] [address] Severiano Hernadez MD [address] [place] [address] Encounter for laboratory testing for COVID-19 virus [...] have Coronavirus / COVID-19? No / Unsure 04/17/2021 8:24 AM EST documented as of this encounter Plan of Treatment Upcoming Encounters Date Type Department Care Team (Late st Contact Info) Description 10/04/2024 11:15 AM EDT Office Visit [facility] Physicians Department of Cardiology [place] [address] [place] [address] [address] [place] [phone] Ami Fields MD [address] [place] [address] 10/15/2024 9:45 AM EDT Office Visit [facility] Medical [address] [phone] Jennifer Marcelino MD [address] [place] [address] 10/29/2024 3:00 PM EDT Office Visit [facility] [address] [place] [phone] Cipriano Kendrick MD [address] [place] [address] 12/26/2024 10:30 AM EDT Consult [facility] Endocrinology [place] [address] [place] [phone] Jennifer Marcelino MD [address] [place] [phone] Aida Casey MD [address] [place] [address] 04/08/2025 9:30 AM EST Office Visit [address] [place] [address] Jennifer Marcelino MD [address] [place] [address], [place] [phone] documented as of this encounter Procedures Procedure Name Priority Date/Time Associated Diagnosis Comments KIANNAAKER COVID-19 (SARS-COV-2), JOYCELYN (IN-HOUSE) KIANNAAKER Routine 04/16/2021 9:13 AM EST Encounter for laboratory testing for COVID-19 virus [ICD-10-CM] documented in this encounter Results * Kiannaaker COVID-19 (SARS-CoV-2), JOYCELYN (In-House) (04/16/2021 9:13 AM EST) SARS CoV 2 Not Detected Not Detected 04/16/2021 10:26 AM EST [facility] Comment: Negative results do [...] was completed and performance characteristics established by [facility] as per the FDA and CLIA requirement for this EUA. The Aptima SARS-CoV-2 assay Letter of Authorization, along with the authorized Fact Sheet for Healthcare Providers, the authorized Fact Sheet for Patients, and authorized labeling are available on the FDA website: https://www.fda.gov/medical-devices/ynwbfwvgj-iirtljgmgb-ozqbify-devices/emergen -us j-jdamwtkmnrfufa-ojlqmxy-devices. Performed at [facility], [place], [place] ??[place] License 0385 ??CLIA [id number] Source Anterior Nares 04/16/2021 10:26 AM EST [facility] Comment:Performed at [facility], [facility], [place] license No. [id number] CLIA No. [id number] Microbiology Nasopharyngeal swab / Unknown 04/16/2021 9:13 AM EST 04/16/2021 9:13 AM EST us Severiano Hernadez MD MICROBIOLOGY - GENERAL ORDER YOKASTA Final Result [facility] [address] [place] [address] documented in this encounter Visit Diagnoses Diagnosis Encounter for laboratory testing for COVID-19 virus documented in this encounter Care Teams Tank House Operator Helper Relationship Specialty Start Date End Date Nate Maravilla MD PCP - General Endocrinology 12/15/15 10/18/22 Jennifer Marcelino MD [address] [place] [address] PCP - General Internal Medicine 10/19/22 Jennifer Marcelino MD [address] [place] [address] PCP - MSSP Attributed 08/07/22 05/08/23 Thomas Crews PA-C [address] [place] [address] PCP - MSSP Attributed 05/09/23 02/06/24 Jennifer Marcelino MD [address] [place] [address] PCP - MSSP Attributed 02/07/24 Cipriano Kendrick MD 85 [facility] [address] [place] [address] Singing Telegram Performer Gastroenterology 03/18/21 Yumiko Hemphill MD [address] [place] [address] Obstetrics and Gynecology 10/19/22 Ami Fields MD [address] [place] [address] Cardiovascular Disease 10/19/22 Chantell Greenwood, TITLE I PARAPROFESSIONAL [address] [place] [address] ICP Community Due Diligence Coordinator 11/17/22 documented as of this encounter
--- OUTSIDE RECORDS SUMMARY | 2024-09-03 14:29 | XMS_ITS | Clinical Summary ---
Author Organization [facility] [place] [address] Phone Care Team Providers Care Painter Apprentice Name Role Phone TamirJennifer riojas Cleve Primary Care Provider [phone] Immunizations Name Administration Dates Next Due Pfizer SARS-CoV-2 COVID-19, mRNA, LNP-S, preservative free 03/25/2021,07/27/2020,07/06/2020 Family History Medical History Relation Name Comments Breast cancer Sister Relation Name Status Comments Sister Social History Tobacco Use Types Packs/Day Years Used Date Smoking Tobacco: Never Assessed Comments Unknown Sex and Gender Information Value Date Recorded Sex Assigned at Not on file Legal Sex Female 11:40 AM EST Gender Identity Not on file Sexual Orientation Not on file Obstetrics History Last Filed Vital Signs Vital Sign Reading Time Taken Comments Blood Pressure - - Pulse - - Temperature - - Respiratory Rate - - Oxygen Saturation - - Inhaled Oxygen Concentration - - Weight 59 kg (130 lb) 03/15/2023 11:01 AM EST Height 162.6 cm (5' 4 ) 03/15/2023 11:01 AM EST Body Mass Index 22.31 03/15/2023 11:01 AM EST Plan of Treatment Health Maintenance Due Date Last Done Comments DTaP,Tdap,and Td Vaccines (1 - Tdap) 1973 Pneumococcal Vaccine: 50+ Years (1 of 1 - PCV) 2004 Zoster Vaccines (1 of 2) 2004 Colorectal Cancer Screening: Colonoscopy 04/06/2022 Depression Screening 04/06/2022 Falls Risk Assessment 04/06/2022 Hepatitis C Screening 04/06/2022 Medicare Annual Wellness Visit 04/06/2022 Osteoporosis Screening (Bone Density Screening) 04/06/2022 Social Influencers of Health Screening 04/06/2022 COVID-19 Vaccine ( - 2023-2 5 season) 2024 03/25/2021, 07/27/2020, 07/06/2020 Influenza Vaccine (Season Ended) 2025 Breast Cancer Screening 02/20/2026 02/21/2024 RSV Immunization Adult Patients (1 - 1-dose 75+ series) 2029 HIB Vaccines Aged Out No longer eligi ble based on patient's age to complete this topic HPV Vaccines Aged Out No longer eligi ble based on patient's age to complete this topic Hepatitis A Vaccines Aged Out No long er eligible based on patient's age to complete this topic Hepatitis B Vaccines Aged Out No long er eligible based on patient's age to complete this topic IPV Vaccines Aged Out No longer eligi ble based on patient's age to complete this topic MMR Vaccines Aged Out No longer eligi ble based on patient's age to complete this topic Meningococcal ACWY Vaccine Aged Out N o longer eligible based on patient's age to complete this topic Meningococcal B Vaccine Aged Out No l onger eligible based on patient's age to complete this topic RSV Immunization Patients Under 20 months Aged Out No longer eligible b ased on patient's age to complete this topic Varicella Vaccines Aged Out No longer eligible based on patient's age to complete this topic Procedures Procedure Name Priority Date/Time Associated Diagnosis Comments MAMMOGRAM DIAGNOSTIC BILATERAL 3D REYNA WITH CAD Routine 02/21/2024 10:22 AM EDT Other chest pain Encounter for screening mammogram for malignant neoplasm of breast Dense breasts, unspecified from Last 3 Months or Most Recently Relevant to Health Maintenance Results * MAMMOGRAM DIAGNOSTIC BILATERAL 3D REYNA WITH CAD (02/21/2024 10:22 AM EDT) Anatomical Region Laterality Modality Mammography 02/07/2024 4:10 PM EDT Narrative 02/21/2024 11:06 AM EDT SESSION: Separate. EXAMINATION: Bilateral diagnostic digital mammograms with CAD and Tomosynthesis. TECHNIQUE: Bilateral full field digital mammography with synthesized (2D) the and Tomosynthesis (3-D) was performed using standard cc and MLO projections. Mammogram was interpreted in correlation with CAD and Tomosynthesis. INDICATION: Yearly mammogram. Patient complains of pain in the medial part of left breast. BREAST DENSITY: There are scattered areas of fibroglandular density (Density B). FINDINGS: Compared to prior outside bilateral screening mammogram dated 11/03/2022. There is no significant change in the appearance and distribution of benign fibroglandular as well as fibronodular densities in the both breasts. Site of pain in the medial part of left breast is identified by square shaped radiopaque skin marker. No focal mammographic abnormality seen in this region. Concurrent ultrasound also showed no suspicious or focal abnormality in this region due to extreme pain. During ultrasound evaluation, patient also reported pain in the left upper outer quadrant at 2:00 position, with no focal mammographic or ultrasonographic abnormality. A few typically benign scattered calcifications as well as benign-appearing axillary lymph nodes are stable. No suspicious microcalcifications or masses are seen. CONCLUSION: 1. Stable mammographic findings with no evidence of malignancy. 2. No mammographic or ultrasonographic abnormality seen at 2 sites of pain in the left breast, as described above. RECOMMENDATIONS: 1. Further management of left breast pain should be on the clinical basis. 2. Patient should continue with yearly screening mammography. NOTE: Patient has been informed about results of this screening mammogram, by a patient letter with 'plain language report'. BI-RADS Category 2: Benign findings. PQRI: 3342F. LOCATION: [facility], [address] [place] [address]. . Report reviewed and signed by : Dr. Otoniel Teran MD on 02/21/2024 11:06 AM. Workstation Name - [id number] Procedure Note Otoniel Teran MD - 03/05/2024 SESSION: Separate. EXAMINATION: Bilateral diagnostic digital mammograms with CAD andTomosynthesis. TECHNIQUE: Bilateral full field digital mammography with synthesized (2D)the and Tomosynthesis (3-D) was performed using standard cc and MLOprojections. Mammogram was interpreted in correlation with CAD andTomosynthesis. INDICATION: Yearly mammogram. Patient complains of pain in the medial partof left breast. BREAST DENSITY: There are scattered areas of fibroglandular density(Density B). FINDINGS: Compared to prior outside bilateral screening mammogram dated11/03/2022. There is no significant change in the appearance and distribution ofbenign fibroglandular as well as fibronodular densities in the bothbreasts. Site of pain in the medial part of left breast is identified by squareshaped radiopaque skin marker. No focal mammographic abnormality seen inthis region. Concurrent ultrasound also showed no suspicious or focalabnormality in this region due to extreme pain. During ultrasoundevaluation, patient also reported pain in the left upper outer quadrant at2:00 position, with no focal mammographic or ultrasonographicabnormality. A few typically benign scattered calcifications as well asbenign-appearing axillary lymph nodes are stable. No suspiciousmicrocalcifications or masses are seen. CONCLUSION: 1. Stable mammographic findings with no evidence of malignancy. 2. No mammographic or ultrasonographic abnormality seen at 2 sites of painin the left breast, as described above. RECOMMENDATIONS: 1. Further management of left breast pain should be on the clinicalbasis. 2. Patient should continue with yearly screening mammography. NOTE: Patient has been informed about results of this screening mammogram,by a patient letter with 'plain language report'. BI-RADS Category 2: Benign findings. PQRI: 3342F. LOCATION: [facility],[address] [place] [address]. . Report reviewed and signed by : Dr. Otoniel Teran MD on :06 AM. Workstation Name - [id number] Jennifer RICO BI PROCEDURES Final Result from Last 3 Months or Most Recently Relevant to Health [place] [address] [place] [address] MEDICARE [facility] Care Teams Painter Apprentice Relationship Specialty Start Date End Date Jennifer Marcelino [address] [place] [phone] PCP - General 03/15/23
--- OUTSIDE RECORDS SUMMARY | 2024-09-03 14:29 | XMS_ITS | Encounter Summary ---
Author Organization [facility] Address [address] [place] [address] Care Team Providers Care Literacy Coordinator Name Role Phone Jennifer Marcelino Primary Care Provider [phone] Encounter Details Date Type Department Care Team (Latest Contact Info) Description 02/21/2024 10:06 AM EDT Hospital Encounter TH HISTORIC ENCOUNTERS EASTERN CONVERSION ONLY Other chest pain; Encounter for screening mammogram for malignant neoplasm of breast; Dense breasts, unspecified; Encounter for screening mammogram for malignant neoplasm of breast Social History Tobacco Use Types Packs/Day Years Used Date Smoking Tobacco: Never Assessed Comments Unknown Sex and Gender Information Value Date Recorded Sex Assigned at Not on file Legal Sex Female 11:40 AM EST Gender Identity Not on file Sexual Orientation Not on file documented as of this encounter Last Filed Vital Signs Vital Sign Reading Time Taken Comments Blood Pressure - - Pulse - - Temperature - - Respiratory Rate - - Oxygen Saturation - - Inhaled Oxygen Concentration - - Weight 59 kg (130 lb) 03/15/2023 11:01 AM EST Height 162.6 cm (5' 4 ) 03/15/2023 11:01 AM EST Body Mass Index 22.31 03/15/2023 11:01 AM EST documented in this encounter Plan of Treatment Not on file documented as of this encounter Procedures Procedure Name Priority Date/Time Associated Diagnosis Comments MAMMOGRAM DIAGNOSTIC BILATERAL 3D REYNA WITH CAD Routine 02/21/2024 10:22 AM EDT Other chest pain Encounter for screening mammogram for malignant neoplasm of breast Dense breasts, unspecified documented in this encounter Results * MAMMOGRAM DIAGNOSTIC BILATERAL 3D REYNA [...] findings. PQRI: 3342F. LOCATION: [facility], [address] [place] [address]. . Report reviewed and signed by : Dr. Otoniel Teran MD on 02/21/2024 11:06 AM. Workstation Name - [id number] Procedure Note Otoniel Teran MD - 03/05/2024 [...] findings. PQRI: 3342F. LOCATION: [facility],[address] [place] [address]. . Report reviewed and signed by : Dr. Otoniel Teran MD on 1:06 AM. Workstation Name - [id number] Jennifer Marcelino IMG BI PROCEDURES Final Result documented in this encounter Visit Diagnoses Diagnosis Other chest pain Encounter for screening mammogram for malignant neoplasm of breast Dense breasts, unspecified documented in this encounter Care Teams Literacy Coordinator Relationship Specialty Start Date End Date Tamirshine Jennifer Poon [address] [place] [phone] PCP - General 03/15/23 documented as of this encounter
--- OUTSIDE RECORDS SUMMARY | 2024-09-03 14:29 | XMS_ITS ---
Author Name [facility] Organization Unknown Results Test Name/Text Value Interpretation Date Range Source RSV RNA Nph Ql JOYCELYN+non-probe NEGATIVE Normal [id number] PENDING SALE TO [facility] FLUBV RNA Nph Ql JOYCELYN+non-probe NEGATIVE Normal [id number] PENDING SALE TO [facility] FLU[facility] RNA Nph Ql JOYCELYN+non-probe NEGATIVE Normal [id number] PENDING SALE TO [facility] Service [facility] XXX-Imp Cepheid GeneXpert (RT-PCR) [facility] Normal [id number] PENDING SALE TO [facility] SPECIMEN SOURCE XXX NASOPHARYNGEAL Normal [id number] PENDING SALE TO [facility] History of Medication Use Medication Directions Dispensed Refills Start Date End Date Stat azithromycin (ZITHROMAX) 250 MG tablet Take 2 tabs PO on day one and one tabs on days 2-5 #6 08/12/2024 active dexAMETHasone (DECADRON) 2 MG tablet TAKE 1 TAB TWICE DAILY FOR 5 DAYS THEN 1 TAB DAILY FOR 5 DAYS 07/17/2024 active meloxicam (MOBIC) 15 MG tablet Take 1 tablet (15 mg total) by mouth daily as needed for moderate pain. 06/07/2024 active tiZANidine (ZANAFLEX) 2 MG tablet Take 1 tablet (2 mg total) by mouth 3 (three) times a day as needed for muscle spasms. 06/07/2024 active ouucbx-tkusindff-llkz esium sulfates (Suprep Bowel Prep Kit) 17.5-3.13-1.6 GM/177ML Solution solution Follow directions provided by physician's office. 12/13/2023 active triamcinolone acetonide 0.1 % topical ointment APPLY A THIN LAYER TO THE AFFECTED AREA(S) BY TOPICAL ROUTE 2 TIMES PER DAY 09/12/2023 active atorvastatin (LIPITOR) 20 MG tablet TAKE 1 TABLET(20 MG) BY MOUTH 3 TIMES A WEEK 08/08/2023 08/05/202 4 active doxycycline (VIBRAMYCIN) 100 MG capsule Take 1 capsule (100 mg total) by mouth 2 (two) times a day. 03/14/2023 3 active alendronate (FOSAMAX) 70 MG tablet Take 1 tablet (70 mg total) by mouth every 7 days. Take with a full glass of water; do not lie down for the next 30 min. 12/01/2022 active ursodiol (ACTIGALL) 300 MG capsule TAKE 2 CAPSULES BY MOUTH EVERY MORNING AND 1 CAPSULE EVERY EVENING 11/18/2021 4 active amoxicillin 875 mg-potassium clavulanate 125 mg tablet 4 completed doxycycline hyclate 100 mg capsule 4 completed cefpodoxime 100 mg tablet TAKE 1 TABLET BY MOUTH TWICE A DAY 3 completed cyclobenzaprine 10 mg tablet TAKE 1 TABLET BY MOUTH THREE TIMES DAILY NEEDED 3 completed prednisone 20 mg tablet 3 completed nitrofurantoin monohydrate/macrocrys tals 100 mg capsule 03/21/20 1 7 completed cefuroxime axetil 250 mg tablet 6 completed naproxen 500 mg tablet 6 completed nystatin-triamci nolone 100,000 unit/gram-0.1 % topical ointment active atorvastatin 20 mg tablet TAKE 1 TABLET BY MOUTH EVERY DAY active meloxicam 7.5 mg tablet active ursodiol 300 mg capsule TAKE 2 CAPSULES BY MOUTH EVERY MORNING AND TAKE 1 EVERY EVENING active atorvastatin 20 mg tablet TAKE 1 TABLET BY MOUTH EVERY DAY TAKE 1 TABLET BY MOUTH EVERY DAY completed Coenzyme Q10 (CoQ-10) 100 MG Cap CoQ-10 active levothyroxine (SYNTHROID) 75 MCG tablet Take 1 tablet (75 mcg total) by mouth daily on an empty stomach. 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 8 ProblemAct [facility] Family history of breast cancer active 2016-03-09 0 ProblemAct [facility] Radiculopathy, cervical region active EncounterDiagnosisAct [facility] Chest pain active 2022-10-07 3 ProblemAct [facility] Cervicalgia active EncounterDiagnosisAct [facility] Plantar wart active 2016-05-10 0 ProblemAct [facility] Coronary arteriosclerosis active 6-2 9 ProblemAct [facility] DDD (degenerative disc disease), cervical active EncounterDiagnosisAct [facility] Primary biliary cholangitis active 2016-03-10 1 ProblemAct [facility] Palpitations active 2022-10-07 3 ProblemAct [facility] Edema active 2022-10-07 3 ProblemAct [facility] History of cervical dysplasia active 2016-03-09 0 ProblemAct [facility] Left carotid bruit active 2022-10-07 3 ProblemAct [facility] GERD (gastroesophageal reflux disease) active 2019-09-08 1 ProblemAct [facility] Age-related osteoporosis without current pathological fracture active 2016-03-09 0 ProblemAct [facility] Genital herpes simplex active 2016-03-09 0 ProblemAct [facility] Dyspnea and respiratory abnormalities active 2022-10-07 3 ProblemAct [facility] Right foot pain active 2016-05-10 0 ProblemAct [facility] Nodular goiter active 2016-03-09 0 ProblemAct [facility] Genital herpes simplex active 2016-03-09 0 ProblemAct [facility] Family history of breast cancer active 2016-03-09 0 ProblemAct [facility] Osteoporosis active 2 ProblemAct [facility] Biliary cirrhosis active 2016-03-09 0 ProblemAct [facility] History of dysplasia of cervix active 2016-03-09 0 ProblemAct [facility] Osteopenia active 2016-03-09 0 ProblemAct [facility] Immunizations Vaccine Date Source Lot Number Status Influenza, Trivalent (FLUAD) Adjuvanted Preservative Free IM 65 years and older 03/14/2024 [facility] [id number] completed COVID-19, mRNA, LNP-S, PF, 50 mcg/0.5 mL 02/13/2023 [facility] [id number] completed Influenza, Quadrivalent (FLU AD) Adjuvanted Preservative Free IM 65 years and older 01/25/2023 [facility] [id number] completed Pneumococcal Conjugate 20-Valent 06/30/2022 [facility] [id number] completed Pneumococcal Conjugate 20-Valent 06/30/2022 [facility] [id number] completed COVID-19, mRNA, LNP-S, bival ent, PF, 50 mcg/0.5 mL or 25mcg/0.25 mL dose 02/23/2022 [facility] [id number] completed Influenza High-Dose Quadriva lent,(FLUZONE HIGH-DOSE), Perservative Free IM 0.7 mL 65 years and older 02/08/2022 [facility] [id number] completed Influenza, Unspecified 02/08/2022 [facility] co mpleted COVID-19, mRNA, LNP-S, PF, 1 00 mcg/0.5mL dose or 50 mcg/0.25mL dose 11/17/2021 [facility] [id number] completed Covid-19 MRNA Vaccine - Pfiz er 12+ (Purple Cap) 03/25/2021 [facility] [id number] completed Influenza, Quadrivalent (FLU ARIX, AFLURIA, FLULAVAL, FLUZONE) Preservative Free IM 01/28/2021 [facility] [id number] completed Influenza, Unspecified 01/28/2021 [facility] co mpleted Pneumococcal Conjugate 13-Valent 01/28/2021 [facility] [id number] completed Covid-19 MRNA Vaccine - Pfiz er 12+ (Purple Cap) 07/27/2020 [facility] [id number] completed Covid-19 MRNA Vaccine - Pfiz er 12+ (Purple Cap) 07/06/2020 [facility] [id number] completed Influenza, injectable, MDCK, preservative free, quadrivalent 02/12/2020 [facility] [id number] completed Influenza Inactivated/Split Preservative Free IM 02/12/2020 [facility] completed Influenza, Quadrivalent (FLU ARIX, AFLURIA, FLULAVAL, FLUZONE) Preservative Free IM 02/12/2020 [facility] [id number] completed Influenza, Quadrivalent (FLU ARIX, AFLURIA, FLULAVAL, FLUZONE) Preservative Free IM 02/12/2020 [facility] [id number] completed Influenza, Unspecified 02/12/2020 [facility] co mpleted Encounters Encounter Type Encounter Reason Primary Diagnosis Location Date Ambulatory Radiculopathy, cervical region Radiculopathy, cervical region [facility] 5 Ambulatory Radiculopathy, cervical region Radiculopathy, cervical region [facility] 5 Ambulatory Radiculopathy, cervical region Radiculopathy, cervical region [facility] 5 Ambulatory Cough [facility]ough [facility] 5 Ambulatory Radiculopathy, cervical region Radiculopathy, cervical region [facility] Ambulatory Radiculopathy, cervical region Radiculopathy, cervical region [facility] 5 Ambulatory Radiculopathy, cervical region Radiculopathy, cervical region [facility] 5 Ambulatory [facility] 5 Ambulatory Encounter for screening for malignant neoplasm of colon Encounter for screening for malignant neoplasm of colon [facility] Amb[facility] Pain in right hand Pain in right hand [facility] [place] 5 Ambulatory Encounter for genera l adult medical examination without abnormal findings Encounter for general adult medical examination without abnormal findings [facility] 4 Ambulatory Follow-up Follow-up [facility] 4 Ambulatory 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 (general) (routine) w/o abn findings 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 (general) (routine) w/o abn findings [facility] 4 Ambulatory Pleurodynia Pleurodynia [facility] 4 Ambulatory Acute frontal sinusitis, unspecified Acute frontal sinusitis, unspecified [facility] 4 Ambulatory Acute upper respiratory infection, unspecified Acute upper respiratory infection, unspecified [facility] 4 Ambulatory [facility] 4 Ambulatory Other cervical disc degeneration, unspecified cervical region Other cervical disc degeneration, unspecified cervical region [facility] 4 Ambulatory [facility] 4 Ambulatory [facility] 4 Ambulatory Other cervical disc degeneration, unspecified cervical region Other cervical disc degeneration, unspecified cervical region [facility] 4 Ambulatory Other cervical disc degeneration, unspecified cervical region Other cervical disc degeneration, unspecified cervical region [facility] 4 Ambulatory Other fatigue Other fatigue [facility] 4 Ambulatory Encounter for screening for malignant neoplasm of colon Encounter for screening for malignant neoplasm of colon [facility] 3 Ambulatory Other symptoms and signs involving cognitive functions and awareness Other symptoms and signs involving cognitive functions and awareness [facility] 3 Ambulatory Atherosclerotic hear t disease of [place] coronary artery without angina pectoris Atherosclerotic heart disease of [place] coronary artery without angina pectoris [facility] 3 Emergency Chronic sinusitis, unspecified Chronic sinusitis, unspecified [facility] 3 Ambulatory Acute sinusitis, unspecified Acute sinusitis, unspecified [facility] 3 Ambulatory Acute upper respiratory infection, unspecified Acute upper respiratory infection, unspecified [facility] 3 Ambulatory Palpitations [facility] 3 Ambulatory [facility] 3 Ambulatory [facility] 3 Ambulatory Palpitations [facility] 3 Ambulatory [facility] 3 Ambulatory [facility] 3 Ambulatory Other nonthrombocytopenic purpura [facility] 3 Ambulatory [facility] 3 Ambulatory Cervicalgia [facility] 3 Ambulatory Other specified disorders of bone density and structure, unspecified site [facility] 3 Ambulatory [facility] 3 Ambulatory Cervicalgia [facility] 3 Ambulatory [facility] 3 Ambulatory Cervicalgia [facility] 3 Ambulatory Cervicalgia [facility] 3 Ambulatory [facility] 3 Ambulatory Cervicalgia [facility] 3 Ambulatory [facility] 3 Ambulatory [facility] 3 Ambulatory [facility] 2 Ambulatory [facility] 2 Ambulatory [facility] 2 Ambulatory [facility] 2 Ambulatory [facility] 2 Ambulatory [facility] 2 Ambulatory [facility] 2 Ambulatory [facility] 2 Ambulatory [facility] 2 Ambulatory [facility] 2 Ambulatory [facility] 2 Ambulatory COVID-19 [facility] 2 Ambulatory [facility] 2 Ambulatory [facility] 2 Ambulatory [facility] 2 Ambulatory [facility] 2 Ambulatory [facility] 2 Ambulatory [facility] 2 Ambulatory [facility] 1 Ambulatory [facility] 1 Ambulatory Sprain of ligame nts of cervical spine, subsequent encounter [facility] 1 Ambulatory Sprain of ligame nts of cervical spine, subsequent encounter [facility] 1 Ambulatory [facility] 1 Ambulatory Sprain of ligame nts of cervical spine, subsequent encounter [facility] 1 Ambulatory Sprain of ligame nts of cervical spine, subsequent encounter [facility] 1 Ambulatory Sprain of ligame nts of cervical spine, subsequent encounter [facility] 1 Ambulatory Sprain of ligame nts of cervical spine, subsequent encounter [facility] 1 Ambulatory Sprain of ligame nts of cervical spine, subsequent encounter [facility] 1 Ambulatory Encounter for immunization [facility] 1 Ambulatory Sprain of ligame nts of cervical spine, subsequent encounter [facility] 1 Ambulatory Sprain of ligame nts of cervical spine, subsequent encounter [facility] 1 Ambulatory Sprain of ligame nts of cervical spine, subsequent encounter [facility] 1 Ambulatory Primary biliary cirrhosis [facility] 1 Ambulatory Sprain of ligame nts of cervical spine, subsequent encounter [facility] 1 Ambulatory Sprain of ligame nts of cervical spine, subsequent encounter [facility] 1 Ambulatory Sprain of ligame nts of cervical spine, subsequent encounter [facility] 1 Ambulatory [facility] 1 Ambulatory Nontoxic multino dular goiter [facility] 1 Ambulatory [facility] 1 Ambulatory [facility] 1 Care Team Organization Name Specialty Phone Email Start Date End Da te [facility] 05/29/2023 [facility] NATE GILL Primary Care 05/29/2023 [facility] 03/16/2023 [facility] SUZANNE SHANNONCAROLNathaly Primary Care 202203/15/2023 [facility] 03/10/2023 024 [facility] 01/29/2023 024 [facility] SUZANNE CANTU Primary Care 10/21/2022 [facility] SUZANNE CANTU Primary Care 10/19/2022 11/05/2022 [facility] Nate Gill Primary Care 04/09/2022 [facility] Nate Gill MD Primary Care 02/11/2021 04/20/2021 [facility] 02/11/2021 [facility] 02/10/202102/10 [facility], [facility] ROBBIN JIMENEZ, Primary Care 01/29/2021 024
--- OUTSIDE RECORDS SUMMARY | 2024-09-03 14:29 | XMS_ITS | Encounter Summary ---
Author Organization [facility] Address [address] [place] [address] Care Team Providers Care Porcelain Enamel Repairer Name Role Phone Nate Maravilla MD Primary Care Provider [phone] Monika Cooper RN Unavailable [phone] Nate Maravilla MD Unavailable [phone] Cipriano Kendrick MD Unavailable [phone] Jennifer Marcelino MD Primary Care Provider [phone] Yumiko Hemphill MD Unavailable [phone] Ami Fields MD Unavailable [phone] Chantell Greenwood Unavailable [phone] Jennifer Marcelino MD Unavailable [phone] Thomas Crews PA-C Unavailable [phone] Jennifer Marcelino MD Unavailable [phone] Encounter Details Date Type Department Care Team (Late st Contact Info) Description 12/28/2018 Scanned Document [facility] [address] [facility] [address] [place] [phone] Provider, MD Rebecca [address] [place] [address] Social History Tobacco Use Types Packs/Day Years [...] Encounters Date Type Department Care Team (Late Contact Info) Description 10/04/2024 11:15 AM EDT Office Visit [facility] Department of Cardiology [address] [place] [address] Ami Fields MD [address] [place] [address] 10/15/2024 9:45 AM EDT Office Visit [address] [phone] Jennifer Marcelino MD [address] [place] [address] 10/29/2024 3:00 PM EDT Office Visit [facility] [address] [place] [phone] Cipriano Kendrick MD [address] [place] [address] 12/26/2024 10:30 AM EDT Consult [facility] Endocrinology [place] [address] [facility] [address] [place] [address] Jennifer Marcelino MD [address] [place] [address] Aida Casey MD [address] [facility] 101 [place] [address] 04/08/2025 9:30 AM EST Office Visit [address] [place] [address] Jennifer Marcelino MD [address] [place] [address] [id number] documented as of this encounter Visit Diagnoses Not on filedocumented in this encounter Care Teams Porcelain Enamel Repairer Relationship Specialty Start Date End Date Nate Maravilla MD PCP - General Endocrinology 12/15/15 10/18/22 Nate Maravilla MD [address] [address] PCP - [employer] Attributed 10/08/19 05/08/20 Jennifer Marcelino MD [address] [place] [address] PCP - General Internal Medicine 10/19/22 Jennifer Marcelino MD [address] [place] [address] PCP - MSSP Attributed 08/07/22 05/08/23 Thomas Crews, BASILIAC [address] [place] [address] PCP - MSSP Attributed 05/09/23 02/06/24 Jennifer Marcelino MD [address] [place] [address] PCP - MSSP Attributed 02/07/24 Monika Cooper, RN [address] [facility] 4 [place] [address] [facility] Community Cloth Bin Packer 03/17/18 03/22/21 Cipriano Kendrick MD [address] [place] [address] [address] [place] [id number] Mat Making Machine Tender Gastroenterology 03/18/21 Yumiko Hemphill MD [address] [place] [address] Obstetrics and Gynecology 10/19/22 Ami Fields MD 1260 [facility] [address] [place] [address] Cardiovascular Disease 10/19/22 Chantell Greenwood, PAD HAND [address] [facility] 4 [place] [address] ICP Community Cloth Bin Packer 11/17/22 documented as of this encounter
--- OUTSIDE RECORDS SUMMARY | 2024-09-03 14:29 | XMS_ITS | Encounter Summary ---
Author Organization [facility] Address [address] [place] [address] Care Team Providers Care Jira Developer Name Role Phone Nate Maravilla MD Primary Care Provider Monika Cooper RN Unavailable [phone] Cipriano Kendrick MD Unavailable [phone] Jennifer Marcelino MD Primary Care Provider [phone] Yumiko Hemphill MD Unavailable [phone] Ami Fields MD Unavailable [phone] Chantell Greenwood HAND CANDY MOLDER Unavailable [phone] Jennifer Marcelino MD Unavailable [phone] Thomas Crews PA-C Unavailable [phone] Jennifer Marcelino MD Unavailable [phone] Encounter Details Date Type Department Care Team (Latest Contact Info) Description 07/04/2020 Lab Requisition [facility] Through [address] [facility] [address] [place] [address] Severiano Hernadez MD [address] [place], [place] [id number] Encounter for laboratory testing for COVID-19 virus [...] have Coronavirus / COVID-19? Unable to assess 07/04/2020 8:50 AM EST documented as of this encounter Plan of Treatment Upcoming Encounters Date Type Department Care Team (Late st Contact Info) Description 10/04/2024 11:15 AM EDT Office Visit [facility] Department of Cardiology [address] [place] [address] Ami Fields MD [address] [place] [address] 10/15/2024 9:45 AM EDT Office Visit [address] [phone] Jennifer Marcelino MD [address] [place] [address] 10/29/2024 3:00 PM EDT Office Visit [facility] [address] [place] [phone] Cipriano Kendrick MD [address] [place] [address] 12/26/2024 10:30 AM EDT Consult [facility] Endocrinology [place] [address] [place] [address] Jennifer Marcelino MD [address] [place] [address] Aida Casey MD [address] [facility] 101 [place] [address] 04/08/2025 9:30 AM EST Office Visit [address] [place] [phone] Jennifer Marcelino MD [address] [place] [address] documented as of this encounter Procedures Procedure Name Priority Date/Time Associated Diagnosis Comments COVID-19 (SARS-COV-2) - [facility] Routine 07/04/2020 8:51 AM EST Encounter for laboratory testing for COVID-19 virus [ICD-10-CM] documented in this encounter Results * COVID-19 (SARS-COV-2) ([facility]) (07/04/2020 8:51 AM EST) COVID-19 RT-PCR NOT-DETEC CASSIE Not-Detec cassie 07/04/2020 8:07 PM EST [facility] - [email or web address] Comment:Interpretation: The viral RNA was not detected, making the COVID-19 diagnosis less likely. Clinical correlation is highly recommended.Final report signed by Adilson Sierra, Ph.D., Laboratory DirectorTests performed at [facility] Nasopharyngeal swab / Unknown 07/04/2020 8:51 AM EST 07/04/2020 8:51 AM EST Narrative LENORE CRUZ - 07/04/2020 8:07 PM EST Performed by [facility] [address] [place] [address], CLIA# [id number] and [place] License# [id number] us Severiano Hernadez MD MICROBIOLOGY - GENERAL ORDER [place] Final Result [facility] CRUZ documented in this encounter Visit Diagnoses Diagnosis Encounter for laboratory testing for COVID-19 virus documented in this encounter Care Teams Jira Developer Relationship Specialty Start Date End Date Nate Maravilla MD PCP - General Endocrinology 12/15/15 10/18/22 Jennifer Marcelino MD [address] [place] [address] PCP - General Internal Medicine 10/19/22 Jennifer Marcelino MD [address] [place] [address] PCP - MSSP Attributed 08/07/22 05/08/23 Thomas Crews, PA-C [address] [place] [address] PCP - MSSP Attributed 05/09/23 02/06/24 Jennifer Marcelino MD [address] [place] [address] PCP - MSSP Attributed 02/07/24 Monika Cooper RN [address] [address] [facility] Community Basket Sorter 03/17/1803/22 Cipriano Kendrick MD [address] [place] [address] [place] [address] Chemical Dependency Professional Gastroenterology 03/18/21 Yumiko Hemphill MD [address] [place] [address] Obstetrics and Gynecology 10/19/22 Ami Fields MD [address] [facility] [address] [place] [address] Cardiovascular Disease 10/19/22 Chantell Greenwood, HAND CANDY MOLDER [address] [facility] 4 [place] [address] [facility] Community Basket Sorter 11/17/22 documented as of this encounter
--- OUTSIDE RECORDS SUMMARY | 2024-09-03 14:29 | XMS_ITS | Encounter Summary ---
Author Organization [facility] Address [address] [place] [address] Care Team Providers Care Glove Parts Cutter Name Role Phone Nate Maravilla MD Primary Care Provider [phone] Monika Cooper RN Unavailable [phone] Cipriano Kendrick MD Unavailable [phone] Jennifer Marcelino MD Primary Care Provider [phone] Yumiko Hemphill MD Unavailable [phone] Ami Fields MD Unavailable [phone] Chantell Greenwood ENTRY LEVEL MANAGER Unavailable [phone] Jennifer Marcelino MD Unavailable [phone] Thomas Crews PA-C Unavailable [phone] Jennifer Marcelino MD Unavailable [phone] Encounter Details Date Type Department Care Team (Late st Contact Info) Description 11/27/[address] [place] Through [address] [place] [address] Severiano Hernadez MD [address] [place], [place] [phone] Encounter for laboratory testing for COVID-19 virus [...] have Coronavirus / COVID-19? Unable to assess 11/27/2020 10:21 AM EDT documented as of this encounter Plan of Treatment Upcoming Encounters Date Type Department Care Team (Late st Contact Info) Description 10/04/2024 11:15 AM EDT Office Visit [facility] Physicians Department of Cardiology [address] [place] [phone] Ami Fields MD [address] [place] [address] 10/15/2024 9:45 AM EDT Office Visit [facility] [address] [phone] Jennifer Marcelino MD [address] [place] [address] 10/29/2024 3:00 PM EDT Office Visit [address] [phone] Cipriano Kendrick MD [address] [place] [address] 12/26/2024 10:30 AM EDT Consult [facility] Endocrinology [place] [address] [place] [address] Jennifer Marcelino MD [address] [place] [address], [place] [address] Aida Casey MD [address] [place] [address] 04/08/2025 9:30 AM EST Office Visit [address] [place] [phone] Jennifer Marcelino MD [address] [place] [address] documented as of this encounter Procedures Procedure Name Priority Date/Time Associated Diagnosis Comments BEAKER COVID-19 (SARS-COV-2), JOYCELYN (IN-HOUSE) BEAKER Routine 11/27/2020 10:22 AM EDT Encounter for laboratory testing for COVID-19 virus [ICD-10-CM] documented in this encounter Results * Beaker COVID-19 (SARS-CoV-2), JOYCELYN (In-House) (11/27/2020 10:22 AM EDT) SARS CoV 2 Not Detected Not Detected 11/27/2020 1:05 PM EDT [facility] Comment: Negative results do [...] was completed and performance characteristics established by [facility] as per the FDA and CLIA requirement for this EUA. The Aptima SARS-CoV-2 assay Letter of Authorization, along with the authorized Fact Sheet for Healthcare Providers, the authorized Fact Sheet for Patients, and authorized labeling are available on the FDA website: https://www.fda.gov/medical-devices/kvhdsgvnq-rjcggdwpoa-mcjirha-devices/emergen - p-ryxqsipjorxnzy-ivnjvcw-devices. Performed at [facility], [place], [place] ??[place] License 0385 ??CLIA [id number] Source Nasopharyngeal 11/27/2020 1:05 PM EDT [facility] Comment:Performed at [facility], [place], [place] license No. [id number] CLIA No. [id number] Microbiology Nasopharyngeal swab / Unknown 11/27/2020 10:22 AM EDT 11/27/2020 10:22 AM EDT us Severiano Hernadez MD MICROBIOLOGY - GENERAL ORDER YOKASTA Final Result [facility] [address] [place] [address] documented in this encounter Visit Diagnoses Diagnosis Encounter for laboratory testing for COVID-19 virus documented in this encounter Care Teams Glove Parts Cutter Relationship Specialty Start Date End Date Nate Maravilla MD PCP - General Endocrinology 12/15/15 10/18/22 Jennifer Marcelino MD [address] [place] [address] PCP - General Internal Medicine 10/19/22 Jennifer Marcelino MD [address] [place] [address] PCP - MSSP Attributed 08/07/22 05/08/23 Thomas Crews PA-C [address] [place] [address] PCP - MSSP Attributed 05/09/23 02/06/24 Jennifer Marcelino MD [address] [place] [address] PCP - MSSP Attributed 02/07/24 Monika Cooper, RN [address] [place] [address] [facility] Community Wet Mixer 03/17/1803/22 Cipriano Kendrick MD [address] [place] [address] [address] [place] [address] Bodily Injury Adjuster Gastroenterology 03/18/21 Yumiko Hemphill MD [address] [place] [address] Obstetrics and Gynecology 10/19/22 Ami Fields MD [address] [place] [address] Cardiovascular Disease 10/19/22 Chantell Greenwood, ENTRY LEVEL MANAGER [address] [place] [address] [facility] Community Wet Mixer 11/17/22 documented as of this encounter
--- OUTSIDE RECORDS SUMMARY | 2024-09-03 14:29 | XMS_ITS | Encounter Summary ---
Author Organization [facility] Address [address] [place] [address] Care Team Providers Care Corporate Tax Manager Name Role Phone Nate Maravilla MD Primary Care Provider Cipriano Kendrick MD Unavailable [phone] Jennifer Marcelino MD Primary Care Provider [phone] Yumiko Hemphill MD Unavailable [phone] Ami Fields MD Unavailable [phone] Chantell Greenwood HOUSE BUILDER Unavailable [phone] Jennifer Marcelino MD Unavailable [phone] Thomas Crews PA-C Unavailable [phone] Jennifer Marcelino MD Unavailable [phone] Encounter Details Date Type Department Care Team (Late st Contact Info) Description 10/26/2021 [facility] [address] [place] [address] Severiano Hernadez MD [address] [place] [address] Encounter for laboratory testing for COVID-19 virus [...] Description 10/04/2024 11:15 AM EDT Office Visit [facility] Physicians Department of Cardiology [address] [place] [address] Ami Fields MD [address] [place] [address] 10/15/2024 9:45 AM EDT Office Visit [address] [phone] Jennifer Marcelino MD [address] [place] [address] 10/29/2024 3:00 PM EDT Office Visit [facility] [address] [place] [address] Cipriano Kendrick MD [address] [place] [address] 12/26/2024 10:30 AM EDT Consult [facility] Endocrinology [address] [place] [address] Jennifer Marcelino MD [address] [place] [address] Aida Casey MD [address] [place] [address] 04/08/2025 9:30 AM EST Office Visit [facility] [address] [place] [phone] Jennifer Marcelino MD [address] [place] [address] documented as of this encounter Procedures Procedure Name Priority Date/Time Associated Diagnosis Comments BEAKER COVID-19 (SARS-COV-2), JOYCELYN (IN-HOUSE) BEAKER Routine 10/26/2021 8:31 AM EDT Encounter for laboratory testing for COVID-19 virus [ICD-10-CM] documented in this encounter Results * Beaker COVID-19 (SARS-CoV-2), JOYCELYN (In-House) (10/26/2021 8:31 AM EDT) SARS CoV 2 Not Detected Not Detected 10/26/2021 10:19 AM EDT [facility] Comment: Negative results [...] was completed and performance characteristics established by [facility] as per the FDA and CLIA requirement for this EUA. The Aptima SARS-CoV-2 assay Letter of Authorization, along with the authorized Fact Sheet for Healthcare Providers, the authorized Fact Sheet for Patients, and authorized labeling are available on the FDA website: https://www.fda.gov/medical-devices/pxiklfuzt-zzttqvznxr-wapvxkh-devices/emergen - s-mcqtzzuwpehmch-iffzqiq-devices. Performed at [facility], [place], [place] ??CT License 0385 ??CLIA [id number] Source Nasopharyngeal 10/26/2021 10:19 AM EDT [facility] Microbiology Nasopharyngeal swab / Unknown 10/26/2021 8:31 AM EDT 10/26/2021 8:31 AM EDT us Severiano Hernadez MD MICROBIOLOGY - GENERAL ORDER YOKASTA Final Result [facility] [address] [place] [address] documented in this encounter Visit Diagnoses Diagnosis Encounter for laboratory testing for COVID-19 virus documented in this encounter Care Teams Corporate Tax Manager Relationship Specialty Start Date End Date Nate Maravilla MD PCP - General Endocrinology 12/15/15 10/18/22 Jennifer Marcelino MD [address] [place] [address] PCP - General Internal Medicine 10/19/22 Jennifer Marcelino MD [address] [place] [address] PCP - MSSP Attributed 08/07/22 05/08/23 Thomas Crews PA-C [address] [place] [address] PCP - MSSP Attributed 05/09/23 02/06/24 Jennifer Marcelino MD [address] [place] [address] PCP - MSSP Attributed 02/07/24 Cipriano Kendrick MD 85 [facility] [address] [place] [address] Vp Director Of Finance Gastroenterology 03/18/21 Yumiko Hemphill MD [address] [place] [address] Obstetrics and Gynecology 10/19/22 Ami Fields MD [address] [place] [address] Cardiovascular Disease 10/19/22 Chantell Greenwood, HOUSE BUILDER [address] [place] [address] [facility] Community Fittings Tightener 11/17/22 documented as of this encounter
--- OUTSIDE RECORDS SUMMARY | 2024-09-03 14:29 | XMS_ITS | Encounter Summary ---
Author Organization [facility] Address [address] [place] [address] Care Team Providers Care Cost Report Clerk Name Role Phone Jennifer Marcelino Primary Care Provider [phone] Encounter Details Date Type Department Care Team (Late st Contact Info) Description 02/21/2024 10:06 AM EDT Hospital Encounter TH HISTORIC ENCOUNTERS EASTERN CONVERSION ONLY Mastodynia Social History Tobacco Use Types Packs/Day Years [...] Procedure Name Priority Date/Time Associated Diagnosis Comments US BREAST SCAN DIAGNOSTIC LEFT LMT Routine 02/21/2024 10:39 AM EDT Mastodynia documented in this encounter Results * US BREAST SCAN DIAGNOSTIC LEFT LMT (02/21/2024 10:39 AM EDT) Anatomical Region Laterality Modality Ultrasound 02/08/2024 2:35 PM EDT Narrative 02/21/2024 11:05 AM EDT SESSION: Separate. EXAMINATION: Limited diagnostic ultrasound of left breast. INDICATION: Patient reported pain in the medial part of left breast and pointed to 9 to 10:00 position. During scanning. Patient also reported pain in the left breast upper outer quadrant and pointed to 2:00 position. FINDINGS: No comparisons. Correlation made to diagnostic mammogram performed earlier today. Focused ultrasonographic evaluation of the medial half of left breast showed no evidence of any suspicious or focal abnormality. Specifically, no focal abnormality seen in the left breast at 9 to 10:00 position. Similarly, no focal abnormality seen in the left breast upper outer quadrant at 2:00 position at the site of reported pain. At both sites only small amount of scattered benign fibroglandular tissue is seen, mixed with predominantly fatty breast tissue, which correlates well with the mammographic appearance. No suspicious or atypical lymph nodes seen in the left axillary region. CONCLUSION: 1. No suspicious or focal abnormality seen in the medial part of left breast at 9 to 10:00 position and in the left upper outer quadrant at 2:00 position, to explain pain at these sites. 2. Further management of breast pain should be on the clinical basis. A verbal report was given to the patient at the end of this study. BI-RADS Category 2: Benign findings. LOCATION: [facility], [place], [address] [place] [address]. . Report reviewed and signed by : Dr. Otoniel Teran MD on 02/21/2024 11:05 AM. Workstation Name - [id number] Procedure Note Otoniel Teran MD - 03/05/2024 SESSION: Separate. EXAMINATION: Limited diagnostic ultrasound of left breast. INDICATION: Patient reported pain in the medial part of left breast andpointed to 9 to 10:00 position. During scanning. Patient also reportedpain in the left breast upper outer quadrant and pointed to 2:00position. FINDINGS: No comparisons. Correlation made to diagnostic mammogramperformed earlier today. Focused ultrasonographic evaluation of the medial half of left breastshowed no evidence of any suspicious or focal abnormality. Specifically,no focal abnormality seen in the left breast at 9 to 10:00 position. Similarly, no focal abnormality seen in the left breast upper outerquadrant at 2:00 position at the site of reported pain. At both sites only small amount of scattered benign fibroglandular tissueis seen, mixed with predominantly fatty breast tissue, which correlateswell with the mammographic appearance. No suspicious or atypical lymph nodes seen in the left axillary region. CONCLUSION: 1. No suspicious or focal abnormality seen in the medial part of leftbreast at 9 to 10:00 position and in the left upper outer quadrant at 2:00position, to explain pain at these sites. 2. Further management of breast pain should be on the clinical basis. A verbal report was given to the patient at the end of this study. BI-RADS Category 2: Benign findings. LOCATION: [facility], [place],[address] [place] [address]. . Report reviewed and signed by : Dr. Otoniel Teran MD on 1:05 AM. Workstation Name - [id number] us Jennifer Marcelino IMG US PROCEDURES Final Result documented in this encounter Visit Diagnoses Diagnosis Mastodynia documented in this encounter Care Teams Cost Report Clerk Relationship Specialty Start Date End Date Jennifer Marcelino [address] [place] [address] PCP - General 03/15/23 documented as of this encounter
--- OUTSIDE RECORDS SUMMARY | 2024-09-03 14:29 | XMS_ITS | Encounter Summary ---
Author Organization [facility] Address [address] [place] [address] Care Team Providers Care Clinical Auditor Name Role Phone Nate Maravilla MD Primary Care Provider Cipriano Kendrick MD Unavailable [phone] Jennifer Marcelino MD Primary Care Provider [phone] Yumiko Hemphill MD Unavailable [phone] Ami Fields MD Unavailable [phone] Chantell Greenwood PRODUCTION MACHINE TENDER Unavailable [phone] Jennifer Marcelino MD Unavailable [phone] Thomas Crews PA-C Unavailable [phone] Jennifer Marcelino MD Unavailable [phone] Encounter Details Date Type Department Care Team (Late st Contact Info) Description 11/27/2021 Lab Requisition [place] COVID-19 Testing Trailer [address] [place] [address] Severiano Hernadez MD [address] [place] [address] Encounter for laboratory testing for COVID-19 virus [...] [facility] Physicians Department of Cardiology [address] [place] [address] Ami Fields MD [address] [place] [address] 10/15/2024 9:45 AM EDT Office Visit [address] [phone] Jennifer Marcelino MD [address] [place] [address] 10/29/2024 3:00 PM EDT Office Visit [facility] [address] [place] [address] Cipriano Kendrick MD [address] [place] [address] 12/26/2024 10:30 AM EDT Consult [facility] Endocrinology [address] [place] [address] Jennifer Marcelino MD 445 [place] [address] Aida Casey MD [address] [place] [address] 04/08/2025 9:30 AM EST Office Visit [facility] [address] [place] [phone] Jennifer Marcelino MD [address] [place] [address] documented as of this encounter Procedures Procedure Name Priority Date/Time Associated Diagnosis Comments BEAKER COVID-19 (SARS-COV-2), JOYCELYN (IN-HOUSE) BEAKER Routine 11/27/2021 9:03 AM EDT Encounter for laboratory testing for COVID-19 virus [ICD-10-CM] documented in this encounter Results * Beaker COVID-19 (SARS-CoV-2), JOYCELYN (In-House) (11/27/2021 9:03 AM EDT) SARS CoV 2 Not Detected Not Detected 11/27/2021 10:23 AM EDT [facility] Comment: Negative results [...] characteristics established by [facility] as per the FDA and CLIA requirement for this EUA. The Aptima SARS-CoV-2 assay Letter of Authorization, along with the authorized Fact Sheet for Healthcare Providers, the authorized Fact Sheet for Patients, and authorized labeling are available on the FDA website: https://www.fda.gov/medical-devices/xswttlsvv-kzemreoaqm-wnfmuxi-devices/emergen - e-emajqasyzuvobm-tfxqldv-devices. Performed at [facility], [place], [place] ??CT License 0385 ??CLIA [id number] Source Nasopharyngeal 11/27/2021 10:23 AM EDT [facility] Microbiology Nasopharyngeal swab / Unknown 11/27/2021 9:03 AM EDT 11/27/2021 9:03 AM EDT us Severiano Hernadez MD MICROBIOLOGY - GENERAL ORDER YOKASTA Final Result [facility] [address] [place] [address] documented in this encounter Visit Diagnoses Diagnosis Encounter for laboratory testing for COVID-19 virus documented in this encounter Care Teams Clinical Auditor Relationship Specialty Start Date End Date Nate Maravilla MD PCP - General Endocrinology 12/15/15 10/18/22 Jennifer Marcelino MD [address] [place] [address] PCP - General Internal Medicine 10/19/22 Jennifer Marcelino MD [address] [place] [address] PCP - MSSP Attributed 08/07/22 05/08/23 Thomas Crews PA-C [address] [place] [address] PCP - MSSP Attributed 05/09/23 02/06/24 Jennifer Marcelino MD [address] [place] [address] PCP - MSSP Attributed 02/07/24 Cipriano Kendrick MD 85 [facility] [address] [place] [address] Shank Cementer Hand Gastroenterology 03/18/21 Yumiko Hemphill MD [address] [place] [address] Obstetrics and Gynecology 10/19/22 Ami Fields MD [address] [place] [address] Cardiovascular Disease 10/19/22 Chantell Greenwood, PRODUCTION MACHINE TENDER [address] [place] [address] [facility] Community Ore Dressing Engineer 11/17/22 documented as of this encounter
--- OUTSIDE RECORDS SUMMARY | 2024-09-03 14:29 | XMS_ITS | Encounter Summary ---
Author Organization [facility] Address [address] [place] [address] Care Team Providers Care Hospice Aide Name Role Phone Nate Maravilla MD Primary Care Provider [phone] Monika Cooper RN Unavailable [phone] Cipriano Kendrick MD Unavailable [phone] Jennifer Marcelino MD Primary Care Provider [phone] Yumiko Hemphill MD Unavailable [phone] Ami Fields MD Unavailable [phone] Chantell Greenwood DREDGE OPERATOR SUPERVISOR Unavailable [phone] Jennifer Marcelino MD Unavailable [phone] Thomas Crews PA-C Unavailable [phone] Jennifer Marcelino MD Unavailable [phone] Encounter Details Date Type Department Care Team (Latest Contact Info) Description 07/01/[address] [facility] Through [address] [facility] [address] [place] [address] Severiano Hernadez MD [address] [place], [place] [phone] Encounter for laboratory testing for COVID-19 virus [...] Description 10/04/2024 11:15 AM EDT Office Visit [facility] Physicians Department of Cardiology [address] [place] [address] Ami Fields MD [address] [place] [address] 10/15/2024 9:45 AM EDT Office Visit [address] [phone] Jennifer Marcelino MD [address] [place] [address] 10/29/2024 3:00 PM EDT Office Visit [facility] [address] [place] [phone] Cipriano Kendrick MD [address] [place] [address] 12/26/2024 10:30 AM EDT Consult [facility] Endocrinology [place] [address] [place] [address] Jennifer Marcelino MD [address] [place] [address] Aida Casey MD [address] [facility] [address] [place] [address] 04/08/2025 9:30 AM EST Office Visit [address] [place] [phone] Jennifer Marcelino MD [address] [place] [address] documented as of this encounter Procedures Procedure Name Priority Date/Time Associated Diagnosis Comments COVID-19 (SARS-COV-2) - [facility] Routine 07/01/2020 8:25 AM EST Encounter for laboratory testing for COVID-19 virus [ICD-10-CM] documented in this encounter Results * COVID-19 (SARS-COV-2) ([facility]) (07/01/2020 8:25 AM EST) COVID-19 RT-PCR NOT-DETEC CASSIE Not-Detec cassie 07/01/2020 8:17 PM EST [facility] [place] Comment:Interpretation: The viral RNA was not detected, making the COVID-19 diagnosis less likely. Clinical correlation is highly recommended.Final report signed by Isis Lindquist, Ph.D., Laboratory DirectorTests performed at [facility] Nasopharyngeal swab / Unknown 07/01/2020 8:25 AM EST 07/01/2020 8:25 AM EST Narrative [facility] - 07/01/2020 8:17 PM EST Performed by [facility] [address] [place] [address], CLIA# [id number] and [place] License# [id number] us Severiano Hernadez MD MICROBIOLOGY - GENERAL ORDER YOKASTA Final Result [facility] documented in this encounter Visit Diagnoses Diagnosis Encounter for laboratory testing for COVID-19 virus documented in this encounter Care Teams Hospice Aide Relationship Specialty Start Date End Date Nate Maravilla MD PCP - General Endocrinology 12/15/15 10/18/22 Jennifer Marcelino MD [address] [place] [address] PCP - General Internal Medicine 10/19/22 Jennifer Marcelino MD [address] [place] [address] PCP - MSSP Attributed 08/07/22 05/08/23 Thomas Crews, PA-C [address] [place] [address] PCP - MSSP Attributed 05/09/23 02/06/24 Jennifer Marcelino MD [address] [place] [address] PCP - MSSP Attributed 02/07/24 Monika Cooper, LUIS [address] [address] [facility] Community Collateral Clerk 03/17/1803/22 Cipriano Kendrick MD [address] [facility] [address] [place] [address] Vat House Laborer Gastroenterology 03/18/21 Yumiko Hemphill MD [address] [place] [address] Obstetrics and Gynecology 10/19/22 Ami Fields MD [address] [facility] [address] [place] [address] Cardiovascular Disease 10/19/22 Chantell Greenwood, DREDGE OPERATOR SUPERVISOR [address] [facility] 4 [place] [address] [facility] Community Collateral Clerk 11/17/22 documented as of this encounter
--- OUTSIDE RECORDS SUMMARY | 2024-09-03 14:29 | XMS_ITS | Encounter Summary ---
Author Organization [facility] Address [address] [place] [address] Care Team Providers Care Perinatal Technician Name Role Phone Nate Maravilla MD Primary Care Provider [phone] Monika Cooper RN Unavailable [phone] Nate Maravilla MD Unavailable [phone] Cipriano Kendrick MD Unavailable Jennifer Marcelino MD Primary Care Provider [phone] Yumiko Hemphill MD Unavailable [phone] Ami Fields MD Unavailable [phone] Chantell Greenwood Unavailable [phone] Jennifer Marcelino MD Unavailable [phone] Thomas Crews PA-C Unavailable [phone] Jennifer Marcelino MD Unavailable [phone] Encounter Details Date Type Department Care Team (Late st Contact Info) Description 01/07/2017 Scanned Document [facility] Vascular & Endovascular Surgery [place] 85 [facility] [address] [place] [address] Mary Fermin RN [address] [place] [address] Social History Tobacco Use Types Packs/Day Years [...] Description 10/04/2024 11:15 AM EDT Office Visit [facility] Department of Cardiology [address] [place] [address] Ami Fields MD [address] [place] [address] 10/15/2024 9:45 AM EDT Office Visit [address] [phone] Jennifer Marcelino MD [address] [place] [address] 10/29/2024 3:00 PM EDT Office Visit [facility] [address] [place] [address] Cipriano Kendrick MD [address] [place] [address] 12/26/2024 10:30 AM EDT Consult [facility] Endocrinology [place] [address] [place] [address] Jennifer Marcelino MD [address] [place] [address] Aida Casey MD 100 [facility] 101 [place] [address] 04/08/2025 9:30 AM EST Office Visit [address] [place] [address] Jennifer Marcelino MD [address] [place] [id number] documented as of this encounter Visit Diagnoses Not on filedocumented in this encounter Care Teams Perinatal Technician Relationship Specialty Start Date End Date Nate Maravilla MD PCP - General Endocrinology 12/15/15 10/18/22 Nate Maravilla MD [address] [address] PCP - [employer] Medicare Attributed 10/08/19 05/08/20 Jennifer Marcelino MD [address] [place] [address] PCP - General Internal Medicine 10/19/22 Jennifer Marcelino MD [address] [place] [address] PCP - MSSP Attributed 08/07/22 05/08/23 Thomas Crews, PAJeannieC [address] [place] [address] PCP - MSSP Attributed 05/09/23 02/06/24 Jennifer Marcelino MD 445 [place] [address] PCP - MSSP Attributed 02/07/24 Monika Cooper, RN [address] [place] [address] ICP Community Property Assessment Monitor 03/17/18 03/22/21 Cipriano Kendrick MD [address] [address] [employer] Dynamics Consultant Gastroenterology 03/18/21 Yumiko Hemphill MD [address] [place] [address] Obstetrics and Gynecology 10/19/22 Ami Fields MD [address] siXismichelle [facility] [address] [place] [address] Cardiovascular Disease 10/19/22 Chantell Greenwood, COFFEE SOMMELIER [address] [place] [address] ICP Community Property Assessment Monitor 11/17/22 documented as of this encounter
--- OUTSIDE RECORDS SUMMARY | 2024-09-03 14:29 | XMS_ITS | Encounter Summary ---
Author Organization [facility] Address [address] [place] [address] Care Team Providers Care Horse Racing Manager Name Role Phone Nate Maravilla MD Primary Care Provider Cipriano Kendrick MD Unavailable [phone] Jennifer Marcelino MD Primary Care Provider [phone] Yumiko eHmphill MD Unavailable [phone] Ami Fields MD Unavailable [phone] Chantell Greenwood FRONT END ASSISTANT Unavailable [phone] Jennifer Marcelino MD Unavailable [phone] Thomas Crews PA-C Unavailable [phone] Jennifer Marcelino MD Unavailable [phone] Encounter Details Date Type Department Care Team (Late st Contact Info) Description 08/21/2021 Lab Requisition [place] COVID-19 Testing Trailer [address] [place] [address] Severiano Hernadez MD 80 [place] [address] Encounter for laboratory testing for COVID-19 virus [...] Description 10/04/2024 11:15 AM EDT Office Visit [facility] Department of Cardiology [address] [place] [phone] Ami Fields MD [address] [place] [address] 10/15/2024 9:45 AM EDT Office Visit [facility] [address] [phone] Jennifer Marcelino MD [address] [place] [address] 10/29/2024 3:00 PM EDT Office Visit [facility] 320 [place] [address] Cipriano Kendrick MD [address] [place] [address] 12/26/2024 10:30 AM EDT Consult [facility] Endocrinology [place] [address] [place] [phone] Jennifer Marcelino MD 445 [facility], [place] [phone] Aida Casey MD [address] [place] [address] 04/08/2025 9:30 AM EST Office Visit [address] [place] [phone] Jennifer Marcelino MD [address] [place] [address], [place] [phone] documented as of this encounter Procedures Procedure Name Priority Date/Time Associated Diagnosis Comments ANTHONY COVID-19 (SARS-COV-2), JOYCELYN (IN-HOUSE) KIANNAAKER Routine 08/21/2021 9:29 AM EDT Encounter for laboratory testing for COVID-19 virus [ICD-10-CM] documented in this encounter Results * Beaker COVID-19 (SARS-CoV-2), JOYCELYN (In-House) (08/21/2021 9:29 AM EDT) SARS CoV 2 Not Detected Not Detected 08/21/2021 10:31 AM EDT [facility] Comment: Negative results do not [...] labeling are available on the FDA website: https://www.fda.gov/medical-devices/bmgdsbzoy-ubikonrftf-hrffwzf-devices/emergen -us d-jaleqtdpamiuil-wfesfxz-devices. Performed at [facility], [place], [place] ??[place] License 0385 ??CLIA [id number] Source Anterior Nares 08/21/2021 10:31 AM EDT [facility] Microbiology Nasopharyngeal swab / Unknown 08/21/2021 9:29 AM EDT 08/21/2021 9:29 AM EDT us Severiano Hernadez MD MICROBIOLOGY - GENERAL ORDER YOKASTA Final Result [facility] [address] [place] [address] documented in this encounter Visit Diagnoses Diagnosis Encounter for laboratory testing for COVID-19 virus documented in this encounter Care Teams Horse Racing Manager Relationship Specialty Start Date End Date Nate Maravilla MD PCP - General Endocrinology 12/15/15 10/18/22 Jennifer Marcelino MD [address] [place] [address] PCP - General Internal Medicine 10/19/22 Jennifer Marcelino MD [address] [place] [address] PCP - MSSP Attributed 08/07/22 05/08/23 Thomas Crews PA-C 445 [place] [address] PCP - MSSP Attributed 05/09/23 02/06/24 Jennifer Marcelino MD 445 [place] [address] PCP - MSSP Attributed 02/07/24 Cipriano Kendrick MD 85 [facility] 1000 [place] [address] Hot Plate Press Operator Gastroenterology 03/18/21 Yumiko Hemphill MD [address] [place] [address] Obstetrics and Gynecology 10/19/22 Ami Fields MD [address] [facility] [address] [place] [address] Cardiovascular Disease 10/19/22 Chantell Greenwood, FRONT END ASSISTANT [address] [facility] [address] [place] [address] ICP Community Assembler Small Products 11/17/22 documented as of this encounter
--- OUTSIDE RECORDS SUMMARY | 2024-09-03 14:29 | XMS_ITS | Encounter Summary ---
Author Organization [facility] Address [address] [place] [address] Care Team Providers Care Operations Professional Name Role Phone Nate Maravilla MD Primary Care Provider Cipriano Kendrick MD Unavailable [phone] Jennifer Marcelino MD Primary Care Provider [phone] Yumiko Hemphill MD Unavailable [phone] Ami Fields MD Unavailable [phone] Chantell Greenwood ORTHODONTIC TECHNICIAN ASSISTANT Unavailable [phone] Jennifer Marcelino MD Unavailable [phone] Thomas Crews PA-C Unavailable [phone] Jennifer Marcelino MD Unavailable [phone] Encounter Details Date Type Department Care Team (Late st Contact Info) Description 10/24/2021 Lab Requisition [place] COVID-[address] [place] [address] Severiano Hernadez MD 80 [place] [address] Encounter for laboratory testing for COVID-19 virus [...] Description 10/04/2024 11:15 AM EDT Office Visit [facility] Department of Cardiology [address] [place] [address] Ami Fields MD [address] [place] [address] 10/15/2024 9:45 AM EDT Office Visit [address] [phone] Jennifer Marcelino MD [address] [place] [address] 10/29/2024 3:00 PM EDT Office Visit [address] [address] Cipriano Kendrick MD [address] [place] [address] 12/26/2024 10:30 AM EDT Consult [facility] Endocrinology [address] [place] [phone] Jennifer Marcelino MD 445 [place] [address] Aida Casey MD [address] [place] [address] 04/08/2025 9:30 AM EST Office Visit [facility] [address] [place] [address] Jennifer Marcelino MD [address] [place] [address], [place] [address] documented as of this encounter Procedures Procedure Name Priority Date/Time Associated Diagnosis Comments BEAKER COVID-19 (SARS-COV-2), JOYCELYN (IN-HOUSE) BEAKER Routine 10/24/2021 1:34 PM EDT Encounter for laboratory testing for COVID-19 virus [ICD-10-CM] documented in this encounter Results * Beaker COVID-19 (SARS-CoV-2), JOYCELYN (In-House) (10/24/2021 1:34 PM EDT) SARS CoV 2 Not Detected Not Detected 10/24/2021 3:22 PM EDT [facility] Comment: Negative results do [...] labeling are available on the FDA website: https://www.fda.gov/medical-devices/ovpwtizfi-yskosingcb-qugkxfb-devices/emergen - s-nsszrixsknrgar-whwshmg-devices. Performed at [facility], [place], [place] ??CT License 0385 ??CLIA [id number] Source Nasopharyngeal 10/24/2021 3:22 PM EDT [facility] Microbiology Nasopharyngeal swab / Unknown 10/24/2021 1:34 PM EDT 10/24/2021 1:34 PM EDT us Severiano Hernadez MD MICROBIOLOGY - GENERAL ORDER YOKASTA Final Result [facility] [address] [place] [address] documented in this encounter Visit Diagnoses Diagnosis Encounter for laboratory testing for COVID-19 virus documented in this encounter Care Teams Operations Professional Relationship Specialty Start Date End Date Nate Maravilla MD PCP - General Endocrinology 12/15/15 10/18/22 Jennifer Marcelino MD [address] [place] [address] PCP - General Internal Medicine 10/19/22 Jennifer Marcelino MD [address] [place] [address] PCP - MSSP Attributed 08/07/22 05/08/23 Thomas Crews PA-C [address] [place] [address] PCP - MSSP Attributed 05/09/23 02/06/24 Jennifer Marcelino MD 445 [place] [address] PCP - MSSP Attributed 02/07/24 Cipriano Kendrick MD 85 [facility] 1000 [place] [address] Hospice Chaplain Gastroenterology 03/18/21 Yumiko Hemphill MD [address] [place] [address] Obstetrics and Gynecology 10/19/22 Ami Fields MD [address] [facility] [address] [place] [address] Cardiovascular Disease 10/19/22 Chantell Greenwood, ORTHODONTIC TECHNICIAN ASSISTANT [address] [place] [address] ICP Community Manager Social Media 11/17/22 documented as of this encounter
--- OUTSIDE RECORDS SUMMARY | 2024-09-03 14:29 | XMS_ITS | Encounter Summary ---
Author Organization [facility] Address [address] [place] [address] Care Team Providers Care Manager Clinical Name Role Phone Cipriano Kendrick MD Unavailable [phone] Jennifer Marcelino MD Primary Care Provider Yumiko Hemphill MD Unavailable Ami Fields MD Unavailable [phone] Chantell Greenwood Unavailable [phone] Thomas Crews PA-C Unavailable Jennifer Marcelino MD Unavailable [phone] Reason for Visit * Reason Comments Other FOLLOW UP CALL Encounter Details Date Type Department Care Team (Late st Contact Info) Description 08/26/2023 Telephone [facility] [address] [place] [address] Neema Mata, RN 80 [place], [place] [phone] Other (FOLLOW UP CALL/) Social History Tobacco Use Types Packs/Day Years Used Date Smoking Tobacco: Never Passive Smoke Exposure: Never Smokeless Tobacco: Never Alcohol Use Standard Drinks/Week Comments No 0 (1 standard drink = 0.6 oz pur e alcohol) PHQ-2 Answer Date Recorded PHQ-2 Total Score 0 10/19/2022 Comments No Sex and Gender Information Value [...] Description 10/04/2024 11:15 AM EDT Office Visit [facility] Department of Cardiology [address] [place] [address] Ami Fields MD [address] [place] [address] 10/15/2024 9:45 AM EDT Office Visit [address] [phone] Jennifer Marcelino MD [address] [place] [address] 10/29/2024 3:00 PM EDT Office Visit [address] [phone] Cipriano Kendrick MD [address] [place] [address] 12/26/2024 10:30 AM EDT Consult [facility] Endocrinology [address] [place] [address] Jennifer Marcelino MD [address] [place] [address] Aida Casey MD [address] [facility] 101 [place] [address] 04/08/2025 9:30 AM EST Office Visit [address] [place] [address] Jennifer Marcelino MD [address] [place] [address] documented as of this encounter Visit Diagnoses Not on filedocumented in this encounter Care Teams Manager Clinical Relationship Specialty Start Date End Date Jennifer Marcelino MD [address] [place] [address] PCP - General Internal Medicine 10/19/22 Thomas Crews PA-C [address] [place] [address] PCP - MSSP Attributed 05/09/23 02/06/24 Jennifer Marcelino MD [address] [place] [address] PCP - MSSP Attributed 02/07/24 Cipriano Kendrick MD [address] [place] [address] 1000 [place] [address] Rubber Gasket Inspector Trimmer Gastroenterology 03/18/21 Yumiko Hemphill MD [address] [place] [address] Obstetrics and Gynecology 10/19/22 Ami Feilds MD [address]ILAH [address] [place], [place] [phone] Cardiovascular Disease 10/19/22 Chantell Greenwood, WET ROOM SUPERVISOR [address] [place] [address] [facility] Community Commercial Airplane Pilot 11/17/22 documented as of this encounter
--- OUTSIDE RECORDS SUMMARY | 2024-09-03 14:29 | XMS_ITS | Encounter Summary ---
Author Organization [facility] Address [address] [place] [address] Care Team Providers Care Production Hardener Name Role Phone Nate Maravilla MD Primary Care Provider Cipriano Kendrick MD Unavailable [phone] Jennifer Marcelino MD Primary Care Provider [phone] Yumiko Hemphill MD Unavailable [phone] Ami Fields MD Unavailable [phone] Chantell Greenwood COLORER Unavailable [phone] Jennifer Marcelino MD Unavailable [phone] Thomas Crews PA-C Unavailable [phone] Jennifer Marcelino MD Unavailable [phone] Encounter Details Date Type Department Care Team (Late st Contact Info) Description 09/30/2021 Lab Requisition [place] COVID-19 Testing Trailer [address] [place] [address] Severiano Hernadez MD 80 [place] [address] Encounter for laboratory testing for COVID-19 virus [...] 10/04/2024 11:15 AM EDT Office Visit [facility] Physicians Department of Cardiology [address] [place] [address] Ami Fields MD [address] [place] [address] 10/15/2024 9:45 AM EDT Office Visit [address] [phone] Jennifer Marcelino MD [address] [place] [address] 10/29/2024 3:00 PM EDT Office Visit [facility] [address] [place] [address] Cipriano Kendrick MD [address] [place] [address] 12/26/2024 10:30 AM EDT Consult [facility] Endocrinology [address] [place] [address] Jennifer Marcelino MD 445 [place] [address] Aida Casey MD [address] [place] [address] 04/08/2025 9:30 AM EST Office Visit [facility] [address] [place] [phone] Jennifer Marcelino MD [address] [place] [address] documented as of this encounter Procedures Procedure Name Priority Date/Time Associated Diagnosis Comments BEAKER COVID-19 (SARS-COV-2), JOYCELYN (IN-HOUSE) BEAKER Routine 09/30/2021 8:45 AM EDT Encounter for laboratory testing for COVID-19 virus [ICD-10-CM] documented in this encounter Results * Beaker COVID-19 (SARS-CoV-2), JOYCELYN (In-House) (09/30/2021 8:45 AM EDT) SARS CoV 2 Not Detected Not Detected 09/30/2021 10:30 AM EDT [facility] Comment: Negative results do [...] was completed and performance characteristics established by [place] [facility] as per the FDA and CLIA requirement for this EUA. The Aptima SARS-CoV-2 assay Letter of Authorization, along with the authorized Fact Sheet for Healthcare Providers, the authorized Fact Sheet for Patients, and authorized labeling are available on the FDA website: https://www.fda.gov/medical-devices/leeiwxyda-wcgxfdldhi-xiaiynh-devices/emergen - d-kknlalsoojiwuu-owixrgp-devices. Performed at [facility], [place], [place] ??CT License 0385 ??CLIA [id number] Source Nasopharyngeal 09/30/2021 10:30 AM EDT [facility] Microbiology Nasopharyngeal swab / Unknown 09/30/2021 8:45 AM EDT 09/30/2021 8:45 AM EDT us Severiano Hernadez MD MICROBIOLOGY - GENERAL ORDER YOKASTA Final Result [facility] 80 [place] [address] documented in this encounter Visit Diagnoses Diagnosis Encounter for laboratory testing for COVID-19 virus documented in this encounter Care Teams Production Hardener Relationship Specialty Start Date End Date Nate Maravilla MD PCP - General Endocrinology 12/15/15 10/18/22 Jennifer Marcelino MD [address] [place] [address] PCP - General Internal Medicine 10/19/22 Jennifer Marcelino MD [address] [place] [address] PCP - MSSP Attributed 08/07/22 05/08/23 Thomas Crews PA-C [address] [place] [address] PCP - MSSP Attributed 05/09/23 02/06/24 Jennifer Marcelino MD 445 [place] [address] PCP - MSSP Attributed 02/07/24 Cipriano Kendrick MD 85 [facility] 1000 [place] [address] Blast Furnace Blower Gastroenterology 03/18/21 Yumiko Hemphill MD [address] [place] [address] Obstetrics and Gynecology 10/19/22 Ami Fields MD [address] [place] [address] Cardiovascular Disease 10/19/22 Chantell Greenwood, COLORER [address] [place] [address] [facility] Community Auto Hauler 11/17/22 documented as of this encounter
--- OUTSIDE RECORDS SUMMARY | 2024-09-03 14:29 | XMS_ITS | Encounter Summary ---
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 Name Role Phone Nate Maravilla MD Primary Care Provider Monika Cooper RN Unavailable [phone] Cipriano Kendrick MD Unavailable [phone] Jennifer Marcelino MD Primary Care Provider [phone] Yumiko Hemphill MD Unavailable [phone] Ami Fields MD Unavailable [phone] Chantell Greenwood BOBBIN COLLECTOR Unavailable [phone] Jennifer Marcelino MD Unavailable [phone] Thomas Crews PA-C Unavailable [phone] Jennifer Marcelino MD Unavailable [phone] Encounter Details Date Type Department Care Team (Latest Contact Info) Description 07/09/2020 Lab Requisition [facility] Through [address] [facility] [address] [place] [address] Severiano Hernadez MD [address] [place], [place] [id number] Encounter for laboratory testing for COVID-19 virus [...] have Coronavirus / COVID-19? Unable to assess 07/09/2020 8:25 AM EST documented as of this encounter Plan of Treatment Upcoming Encounters Date Type Department Care Team (Late st Contact Info) Description 10/04/2024 11:15 AM EDT Office Visit [facility] Department of Cardiology [address] [place] [address] Ami Fields MD [address] [place] [address] 10/15/2024 9:45 AM EDT Office Visit [address] [phone] Jennifer Marcelino MD [address] [place] [address] 10/29/2024 3:00 PM EDT Office Visit [facility] [address] [place] [phone] Cipriano Kendrick MD [address] [place] [address] 12/26/2024 10:30 AM EDT Consult [facility] Endocrinology [place] [address] [place] [address] Jennifer Marcelino MD [address] [place] [address] Aida Casey MD [address] [facility] [address] [place] [address] 04/08/2025 9:30 AM EST Office Visit [address] [place] [phone] Jennifer Marcelino MD [address] [place] [address] documented as of this encounter Procedures Procedure Name Priority Date/Time Associated Diagnosis Comments COVID-19 (SARS-COV-2) - [facility] Routine 07/09/2020 8:26 AM EST Encounter for laboratory testing for COVID-19 virus [ICD-10-CM] documented in this encounter Results * COVID-19 (SARS-COV-2) ([facility]) (07/09/2020 8:26 AM EST) COVID-19 RT-PCR NOT-DETEC CASSIE Not-Detec cassie 07/10/2020 3:10 PM EST [facility] Comment:Interpretation: The viral RNA was not detected, making the COVID-19 diagnosis less likely. Clinical correlation is highly recommended.Final report signed by Isis Lindquist, Ph.D., Laboratory DirectorTests performed at [facility] Nasopharyngeal swab / Unknown 07/09/2020 8:26 AM EST 07/09/2020 8:26 AM EST Narrative LENORE CRUZ - 07/10/2020 3:10 PM EST Performed by [facility] [employer] [address] [place] [id number], CLIA# [id number] and [place] License# [id number] Severiano Hernadez MD MICROBIOLOGY - GENERAL ORDER [place]OKASTA Final Result LENORE CRUZ documented in this encounter Visit Diagnoses Diagnosis Encounter for laboratory testing for COVID-19 virus documented in this encounter Care Teams Bullet Assembly Press Setter Operator Relationship Specialty Start Date End Date Nate Maravilla MD PCP - General Endocrinology 12/15/15 10/18/22 Jennifer Marcelino MD [address] [place] [address] PCP - General Internal Medicine 10/19/22 Jennifer Marcelino MD [address] [place] [address] PCP - MSSP Attributed 08/07/22 05/08/23 Thomas Crews, PA-C [address] [place] [address] PCP - MSSP Attributed 05/09/23 02/06/24 Jennifer Marcelino MD [address] [place] [address] PCP - MSSP Attributed 02/07/24 Monika Cooper, LUIS [address] [address] [facility] Community Washing Machine Loader And Puller 03/17/1803/22 Cipriano Kendrick MD 85 [facility] [address] [place] [address] Cottonseed Meat Presser Gastroenterology 03/18/21 Yumiko Hemphill MD [address] [place] [address] Obstetrics and Gynecology 10/19/22 Ami Fields MD [address] [employer] [facility] [address] [place] [address] Cardiovascular Disease 10/19/22 Chantell Greenwood, BOBBIN COLLECTOR [address] [facility] [address] [place] [address] [facility] Community Washing Machine Loader And Puller 11/17/22 documented as of this encounter
[2024-09-03 14:31] LABS: INTERNATIONAL NORM RATIO 0.9 (0.9-1.1); Prothrombin Time 10.8 SEC (10.9-12.4)
[2024-09-03] MEDS: iohexoL 350 MG/ML 100 ML INFUS..BTL IV (15:02)
[2024-09-03 15:55] VITALS: BP 149/77; PULSE 71; RESP 16; O2SAT 100
[2024-09-03 16:29] VITALS: BP 149/77; PULSE 71; RESP 16; TEMP 36.9; O2SAT 100
== END 2024-09-03 16:55 | disposition home or self-care (01) ==
PROVIDERS: Physician Assistant Medical; Emergency Provider Emergency Medicine Emergency Medical Services
DX: S13.4XXA Sprain of ligaments of cervical spine, initial encounter (principal); R79.89 Other specified abnormal findings of blood chemistry; R07.89 Other chest pain; R51.9 Headache, unspecified; M54.2 Cervicalgia; R10.2 Pelvic and perineal pain; R06.02 Shortness of breath; I10 Essential (primary) hypertension; M54.50 Low back pain, unspecified; V43.52XA Car driver injured in collision with other type car in traffic accident, initial encounter; Y93.9 Activity, unspecified; Y92.410 Unspecified street and highway as the place of occurrence of the external cause; Y99.8 Other external cause status
CPT/HCPCS: 36415; 70450; 71260; 72125; 74177; 80048; 80076; 83735; 85025; 85610; 96374; 99283; 99284; J0131; Q9967

== ENCOUNTER → 2024-09-03 13:46 | Outpatient (BNV) | payer MEDICARE, SELFPAY | PROVIDERS: Emergency Provider Emergency Medicine Emergency Medical Services; Visit Provider Radiology Diagnostic Radiology | DX: R74.01 Elevation of levels of liver transaminase levels (principal); R07.9 Chest pain, unspecified; M54.2 Cervicalgia; R51.9 Headache, unspecified; V89.2XXA Person injured in unspecified motor-vehicle accident, traffic, initial encounter | CPT/HCPCS: 70450; 72125 ==